=== PATIENT | female | born 1960 | race Caucasian/White ===

== ENCOUNTER 2022-04-20 09:26 | Emergency (ER) | payer BC ==
[2022-04-20 09:44] VITALS: RESP 16; TEMP 97.4
[2022-04-20 09:44] LABS: Glucose,Whole Blood 251 mg/dL (70-110)
[2022-04-20] MEDS ORDERED: ONDANSETRON 4 MG/2 ML VIAL IVP STA (10:18)
[2022-04-20] MEDS ORDERED: SODIUM CHLORIDE 0.9% 1,000 ML IV STA (10:18)
--- NOTE | 2022-04-20 10:46 | ED ---
Nausea/Vomiting/Diarrhea HPI - General Chief complaint: Nausea/Vomiting/Diarrhea Stated complaint: Vomiting, diabetic, Covid + Time Seen by Provider: 04/20/22 09:59 Source: patient, family, RN notes reviewed Mode of arrival: ambulatory Limitations: no limitations - History of Present Illness Initial comments: This is a 61-year-old female who presents to the emergency department for nausea and vomiting. She tested positive for COVID at home yesterday. 3 days ago, she began to develop fatigue, nausea, and vomiting. States that she is sleeping most of the day and is unable to keep anything down. She has also not been taking her insulin. She and her primary care physician were worried about her going into DKA, which she has been in before. She is also hoping to receive monoclonal antibody treatment. Denies any fevers, chills, sore throat, cough, dyspnea, chest pain, palpitations, abdominal pain, diarrhea, back pain, or headaches. MD complaint: nausea, vomiting Onset/Timin -: days(s) Associated Abdominal Pain: No Context: other (COVID) - Related Data Previous Rx's Medication Instructions Recorded Ondansetron Odt [Zofran Odt] 4 mg PO Q8HR PRN #20 tab 04/20/22 Allergies Allergy/AdvReac Type Severity Reaction Status Date / Time No Known Allergies Allergy Verified 04/20/22 09:43 Review of Systems ROS Statement: Those systems with pertinent positive or pertinent negative responses have been documented in the HPI. ROS Other: All systems not noted in ROS Statement are negative. Past Medical History Past Medical History: Diabetes Mellitus, Hyperlipidemia History of Any Multi-Drug Resistant Organisms: None Reported Past Surgical History: No Surgical Hx Reported Past Psychological History: No Psychological Hx Reported Smoking Status: Former smoker Past Alcohol Use History: None Reported Past Drug Use History: None Reported General Exam Limitations: no limitations General appearance: alert, in distress Head exam: Present: atraumatic, normocephalic, normal inspection Respiratory exam: Present: normal lung sounds bilaterally. Absent: respiratory distress, wheezes, rales, rhonchi, stridor Cardiovascular Exam: Present: regular rate, normal rhythm, normal heart sounds. Absent: systolic murmur, diastolic murmur, rubs, gallop, clicks GI/Abdominal exam: Present: soft, hypoactive bowel sounds. Absent: distended, tenderness Neurological exam: Present: alert, oriented X3, CN II-XII intact Psychiatric exam: Present: normal affect, normal mood Skin exam: Present: warm, dry, intact, normal color. Absent: rash Course Vital Signs 04/20/22 04/20/22 04/20/22 09:39 12:27 14:05 Temperature 97.4 F L Pulse Rate 70 54 L 60 Respiratory 16 16 16 Rate Blood Pressure 136/79 115/50 120/63 O2 Sat by Pulse 97 100 98 Oximetry Medical Decision Making - Medical Decision Making This is a 61-year-old female who presents to the emergency department for nausea and vomiting. She is also positive for COVID-19. Lab work is not consistent with DKA. Patient was rehydrated and treated with Zofran, and states that she felt remarkably better. She was also given monoclonal antibody treatment. Patient discharged home with a prescription for Zofran. Advised she remained very well-hydrated. She is also instructed to quarantine for 5 days and practice extra precautions for an additional 5 days, including always wearing a mask around others and avoiding travel. Return precautions reviewed in depth, the patient is instructed to return to the emergency department with any new, worsening, or concerning symptoms. Patient verbalized understanding. This case was discussed in detail with the attending ED physician. Presentation, findings, and treatment plan discussed in detail as well. - Lab Data Result diagrams: 04/20/22 11:35 04/20/22 11:35 Lab Results 04/20/22 04/20/22 04/20/22 Range/Units 09:42 11:35 11:35 WBC 5.8 (3.8-10.6) k/uL RBC 5.07 (3.80-5.40) m/uL Hgb 14.9 (11.4-16.0) gm/dL Hct 46.2 H (34.0-46.0) % MCV 91.1 (80.0-100.0) fL MCH 29.4 (25.0-35.0) pg MCHC 32.3 (31.0-37.0) g/dL RDW 12.8 (11.5-15.5) % Plt Count 279 (150-450) k/uL MPV 8.3 Neutrophils % 73 % Lymphocytes % 20 % Monocytes % 6 % Eosinophils % 1 % Basophils % 0 % Neutrophils # 4.2 (1.3-7.7) k/uL Lymphocytes # 1.1 (1.0-4.8) k/uL Monocytes # 0.3 (0-1.0) k/uL Eosinophils # 0.0 (0-0.7) k/uL Basophils # 0.0 (0-0.2) k/uL VBG pH (7.31-7.41) VBG pCO2 (37-51) mmHg VBG HCO3 (24-28) mmol/L Sodium 137 (137-145) mmol/L Potassium 4.7 (3.5-5.1) mmol/L Chloride 100 (98-107) mmol/L Carbon Dioxide 26 (22-30) mmol/L Anion Gap 11 mmol/L BUN 21 H (7-17) mg/dL Creatinine 0.67 (0.52-1.04) mg/dL Est GFR (CKD-EPI)AfAm >90 (>60 ml/min/1.73 sqM) Est GFR (CKD-EPI)NonAf >90 (>60 ml/min/1.73 sqM) Glucose 308 H (74-99) mg/dL POC Glucose (mg/dL) 251 H (70-110) mg/dL POC Glu Disc Pad Knockout Worker ID [facility] Calcium 9.7 (8.4-10.2) mg/dL Phosphorus 4.2 (2.5-4.5) mg/dL Magnesium 1.7 (1.6-2.3) mg/dL Total Bilirubin 0.6 (0.2-1.3) mg/dL AST 28 (14-36) U/L ALT 20 (4-34) U/L Alkaline Phosphatase 104 (38-126) U/L Total Protein 7.3 (6.3-8.2) g/dL Albumin 4.3 (3.5-5.0) g/dL Urine Color Urine Appearance (Clear) Urine pH (5.0-8.0) Ur Specific [place] (1.001-1.035) Urine Protein (Negative) Urine Glucose (UA) (Negative) Urine Ketones (Negative) Urine Blood (Negative) Urine Nitrite (Negative) Urine Bilirubin (Negative) Urine Urobilinogen (<2.0) mg/dL Ur Leukocyte Esterase (Negative) Urine WBC (0-5) /hpf Ur Squamous Epith Cells (0-4) /hpf Urine Bacteria (None) /hpf Urine Mucus (None) /hpf Acetone, Qual Positive (Negative) 04/20/22 04/20/22 Range/Units 11:35 12:20 WBC (3.8-10.6) k/uL RBC (3.80-5.40) m/uL Hgb (11.4-16.0) gm/dL Hct (34.0-46.0) % MCV (80.0-100.0) fL MCH (25.0-35.0) pg MCHC (31.0-37.0) g/dL RDW (11.5-15.5) % Plt Count (150-450) k/uL MPV Neutrophils % % Lymphocytes % % Monocytes % % Eosinophils % % Basophils % % Neutrophils # (1.3-7.7) k/uL Lymphocytes # (1.0-4.8) k/uL Monocytes # (0-1.0) k/uL Eosinophils # (0-0.7) k/uL Basophils # (0-0.2) k/uL VBG pH 7.34 (7.31-7.41) VBG pCO2 47 (37-51) mmHg VBG HCO3 26 (24-28) mmol/L Sodium (137-145) mmol/L Potassium (3.5-5.1) mmol/L Chloride (98-107) mmol/L Carbon Dioxide (22-30) mmol/L Anion Gap mmol/L BUN (7-17) mg/dL Creatinine (0.52-1.04) mg/dL Est GFR (CKD-EPI)AfAm (>60 ml/min/1.73 sqM) Est GFR (CKD-EPI)NonAf (>60 ml/min/1.73 sqM) Glucose (74-99) mg/dL POC Glucose (mg/dL) (70-110) mg/dL POC Glu Disc Pad Knockout Worker ID Calcium (8.4-10.2) mg/dL Phosphorus (2.5-4.5) mg/dL Magnesium (1.6-2.3) mg/dL Total Bilirubin (0.2-1.3) mg/dL AST (14-36) U/L ALT (4-34) U/L Alkaline Phosphatase (38-126) U/L Total Protein (6.3-8.2) g/dL Albumin (3.5-5.0) g/dL Urine Color Yellow Urine Appearance Clear (Clear) Urine pH 5.5 (5.0-8.0) Ur Specific [place] 1.037 H (1.001-1.035) Urine Protein 2+ H (Negative) Urine Glucose (UA) 4+ H (Negative) Urine Ketones 1+ H (Negative) Urine Blood Negative (Negative) Urine Nitrite Negative (Negative) Urine Bilirubin Negative (Negative) Urine Urobilinogen <2.0 (<2.0) mg/dL Ur Leukocyte Esterase Negative (Negative) Urine WBC 6 H (0-5) /hpf Ur Squamous Epith Cells 1 (0-4) /hpf Urine Bacteria Occasional H (None) /hpf Urine Mucus Occasional H (None) /hpf Acetone, Qual (Negative) Disposition Clinical Impression: COVID-19, Nausea and vomiting Disposition: HOME SELF-CARE Instructions (If sedation given, give patient instructions): Acute Nausea and Vomiting (ED), COVID-19 (Coronavirus Disease 2019) (ED), How to Recover from COVID-19 at Home (ED) Additional Instructions: Return to the emergency department with any new, worsening, or concerning symptoms. Make sure that you quarantine for 5 days from the date of the positive test and practice extra precautions for an additional 5 days, including always wearing a mask around others and avoiding travel. Take the Zofran up to every 8 hours as needed for nausea and vomiting. Prescriptions: Ondansetron Odt [Zofran Odt] 4 mg PO Q8HR PRN #20 tab PRN Reason: Nausea And Vomiting Is patient prescribed a controlled substance at d/c from ED?: No Referrals: Iain Harden MD [Primary Care Provider] - 1-2 days
[2022-04-20 12:02] LABS: Basophils % (A) 0 %; Eosinophils % (A) 1 %; HCT 46.2 % (34.0-46.0); HGB 14.9 gm/dL (11.4-16.0); Lymphocytes # (A) 1.1 k/uL (1.0-4.8); Lymphocytes % (A) 20 %; MCH 29.4 pg (25.0-35.0); MCHC 32.3 g/dL (31.0-37.0); MCV 91.1 fL (80.0-100.0); Mean Platelet Volume 8.3; Monocytes # (A) 0.3 k/uL (0-1.0); Monocytes % (A) 6 %; Neutrophils # (A) 4.2 k/uL (1.3-7.7); Neutrophils % (A) 73 %; Platelet Count 279 k/uL (150-450); RBC 5.07 m/uL (3.80-5.40); RDW 12.8 % (11.5-15.5); WBC 5.8 k/uL (3.8-10.6)
[2022-04-20] MEDS ORDERED: BEBTELOVIMAB (EUA) 175 MG/2 ML VIAL IV ONE (12:15)
[2022-04-20 12:19] LABS: ALT 20 U/L (4-34); AST 28 U/L (14-36); African American GFR (CKD) >90 (>60 ml/min/1.73 sqM); Albumin 4.3 g/dL (3.5-5.0); Alkaline Phosphatase 104 U/L (38-126); Anion Gap 11 mmol/L; Blood Urea Nitrogen 21 mg/dL (7-17); Calcium 9.7 mg/dL (8.4-10.2); Carbon Dioxide 26 mmol/L (22-30); Chloride 100 mmol/L (98-107); Glucose 308 mg/dL (74-99); Magnesium 1.7 mg/dL (1.6-2.3); Non-African American GFR(CKD) >90 (>60 ml/min/1.73 sqM); Phosphorus 4.2 mg/dL (2.5-4.5); Potassium 4.7 mmol/L (3.5-5.1); Sodium 137 mmol/L (137-145); Total Bilirubin 0.6 mg/dL (0.2-1.3); Total Protein 7.3 g/dL (6.3-8.2)
[2022-04-20 12:48] LABS: VBG PH 7.34 (7.31-7.41)
[2022-04-20] MEDS ORDERED: ONDANSETRON 4 MG ODT STARTER PACK 2 TAB BTL PO STA (13:53)
[2022-04-20 13:57] LABS: Appearance,Urine Clear (Clear); Bacteria,Urine Occasional /hpf; Bilirubin,Urine Negative (Negative); Blood,Urine Negative (Negative); Color,Urine Yellow; Glucose,Urine (UA) 4+ (Negative); Ketones,Urine 1+ (Negative); Leukocyte Esterase,Urine Negative (Negative); Mucus,Urine Occasional /hpf; Nitrite,Urine Negative (Negative); PH, Urine 5.5 (5.0-8.0); Protein,Urine 2+ (Negative); Specific Gravity,Urine 1.037 (1.001-1.035); Squamous Epithelial Cell,Urine 1 /hpf (0-4); Urobilinogen,Urine <2.0 mg/dL (<2.0); WBC,Urine 6 /hpf (0-5)
[2022-04-20 14:06] VITALS: BP 120/63; PULSE 60
== END 2022-04-20 14:06 | disposition home or self-care (01) ==
LOC: EC 09:34
DX: U07.1 COVID-19 (principal); E11.9 Type 2 diabetes mellitus without complications; E78.5 Hyperlipidemia, unspecified; Z87.891 Personal history of nicotine dependence
CPT/HCPCS: 36415; 80053; 82803; 82009; 83735; 84100; 85025; 81001; 99284; 96374; 96361 ×2; J2405; S0119; Q0222

== ENCOUNTER 2023-07-02 15:25 | Inpatient (IN) | payer BC ==
[2023-07-02 16:50] LABS: Basophils # (A) 0.1 k/uL (0-0.2); Basophils % (A) 1 %; Eosinophils # (A) 0.2 k/uL (0-0.7); Eosinophils % (A) 2 %; HCT 40.6 % (34.0-46.0); HGB 13.2 gm/dL (11.4-16.0); Lymphocytes # (A) 1.5 k/uL (1.0-4.8); Lymphocytes % (A) 21 %; MCHC 32.4 g/dL (31.0-37.0); MCV 89.4 fL (80.0-100.0); Mean Platelet Volume 8.1; Monocytes # (A) 0.3 k/uL (0-1.0); Monocytes % (A) 4 %; Neutrophils # (A) 5.1 k/uL (1.3-7.7); Neutrophils % (A) 71 %; Platelet Count 411 k/uL (150-450); RBC 4.54 m/uL (3.80-5.40); RDW 12.4 % (11.5-15.5); WBC 7.2 k/uL (3.8-10.6)
[2023-07-02 17:12] LABS: ALT 12 U/L (4-34); AST 19 U/L (14-36); African American GFR (CKD) >90 (>60 ml/min/1.73 sqM); Alkaline Phosphatase 123 U/L (38-126); Amylase 48 U/L (30-110); Anion Gap 11 mmol/L; Blood Urea Nitrogen 23 mg/dL (7-17); Carbon Dioxide 24 mmol/L (22-30); Chloride 102 mmol/L (98-107); Glucose 363 mg/dL (74-99); Lipase 40 U/L (23-300); Non-African American GFR(CKD) >90 (>60 ml/min/1.73 sqM); Sodium 137 mmol/L (137-145); Total Bilirubin 0.3 mg/dL (0.2-1.3); Total Protein 7.3 g/dL (6.3-8.2)
[2023-07-02] MEDS ORDERED: KETOROLAC 15 MG/ML 1 ML VIAL IVP STA (18:15)
[2023-07-02] MEDS ORDERED: FAMOTIDINE 20 MG/2 ML VIAL IV STA (18:16)
[2023-07-02] MEDS ORDERED: ONDANSETRON 4 MG/2 ML VIAL IVP STA (18:16)
[2023-07-02] MEDS ORDERED: SODIUM CHLORIDE 0.9% 1,000 ML IV STA (18:16)
[2023-07-02] MEDS ORDERED: MAG HYDROX/AL HYDROX/SIMETH 30 ML, HYOSCYAMINE ELIXIR 10 ML, LIDOCAINE 2% GLYDO JELLY 1... PO STA ×3 (18:16)
[2023-07-02] MEDS ORDERED: PANTOPRAZOLE 40 MG/10 ML VIAL IVP STA (18:16)
[2023-07-02] MEDS ORDERED: INSULIN REGULAR 100 UNIT/ML VIAL (IV) IV ONE (18:33)
--- NOTE | 2023-07-02 18:36 | ED ---
Abdominal Pain HPI - General Chief Complaint: Abdominal Pain Stated Complaint: abd pain Time Seen by Provider: 07/02/23 18:03 Source: patient Mode of arrival: ambulatory Limitations: no limitations - History of Present Illness Initial Comments: Patient is a 62-year-old female who presents to the emergency department for abdominal pain. Patient has had intermittent pain in her upper middle abdomen for the past 3 weeks. States it is a gnawing pain worse with food. There is radiation to the back. Patient feels nauseous no vomiting. No fever or chills. No changes in bowel habits. No urinary symptoms. Patient does admit to taking Advil for several weeks prior to abdominal pain because she pulled a muscle in her back. She denies numbness and tingling. Denies loss of bowel and bladder function. Denies history of gastritis, pancreatitis, gallbladder disease. Denies chest pain and shortness breath. Patient does have history of diabetes on insulin states she has not taken her insulin recently due to not feeling well. - Related Data Home Medications Medication Instructions Recorded Confirmed Fenofibrate Nanocrystallized 48 mg PO HS 07/02/23 07/02/23 [Fenofibrate] Insulin Aspart [NovoLOG Flexpen] See Protocol SQ AC-TID 07/02/23 07/02/23 Insulin Glargine,Hum.rec.anlog 37 unit SQ HS 07/02/23 07/02/23 [Basaglar Kwikpen U-100] Levothyroxine Sodium [Synthroid] 75 mcg PO HS 07/02/23 07/02/23 Omeprazole [PriLOSEC] 40 mg PO HS 07/02/23 07/02/23 Simvastatin [Zocor] 20 mg PO HS 07/02/23 07/02/23 Allergies Allergy/AdvReac Type Severity Reaction Status Date / Time No Known Allergies Allergy Verified 07/02/23 21:33 Review of Systems ROS Statement: Those systems with pertinent positive or pertinent negative responses have been documented in the HPI. ROS Other: All systems not noted in ROS Statement are negative. Past Medical History Past Medical History: Diabetes Mellitus, Hyperlipidemia History of Any Multi-Drug Resistant Organisms: None Reported Past Surgical History: No Surgical Hx Reported Past Psychological History: No Psychological Hx Reported Smoking Status: Former smoker Past Alcohol Use History: None Reported Past Drug Use History: None Reported General Exam Limitations: no limitations General appearance: alert Head exam: Present: atraumatic, normocephalic, normal inspection Eye exam: Present: normal appearance, PERRL, EOMI. Absent: scleral icterus, c onjunctival injection, periorbital swelling Respiratory exam: Present: normal lung sounds bilaterally. Absent: respiratory distress, wheezes, rales, rhonchi, stridor Cardiovascular Exam: Present: regular rate, normal rhythm, normal heart sounds. Absent: systolic murmur, diastolic murmur, rubs, gallop, clicks GI/Abdominal exam: Present: soft, tenderness (mild epigastric), normal bowel sounds. Absent: distended, guarding, rebound, rigid Neurological exam: Present: alert Psychiatric exam: Present: normal affect, normal mood Skin exam: Present: warm, dry, intact, normal color. Absent: rash Course Vital Signs 07/02/23 07/02/23 15:26 20:46 Temperature 98.2 F Pulse Rate 81 77 Respiratory 20 19 Rate Blood Pressure 125/52 123/99 O2 Sat by Pulse 97 99 Oximetry Medical Decision Making - Medical Decision Making EKG taken at 19:09, interpreted by myself Sinus rhythm with first-degree AV block, no ST changes Ventricular rate 62, CO interval 222, QRS duration 91, QTC 426 Was pt. sent in by a medical professional or institution (SAAD Mcintosh, TRAIN DIRECTOR, urgent care, hospital, or snf...) When possible be specific @ -[No] Did you speak to anyone other than the patient for history (EMS, parent, family, police, friend...)? What history was obtained from this source @ -[No] Did you review nursing and triage notes (agree or disagree)? Why? @ -[I reviewed and agree with nursing and triage notes] Were old charts reviewed (outside hosp., previous admission, EMS record, old EKG, old radiological studies, urgent care reports/EKG's, snf records)? Report findings @ -[No old charts were reviewed] Differential Diagnosis (chest pain, altered mental status, abdominal pain women, abdominal pain men, vaginal bleeding, weakness, fever, dyspnea, syncope, headache, dizziness, GI bleed, back pain, seizure, CVA, palpatations, mental health)? @ -Differential Abdominal Pain Women: Appendicitis, Cholecystitis, diverticulosis, ischemic bowel, pancreatitis, hepatitis, UTI, gastroenteritis, AAA, incarcerated hernia, bowel obstruction, constipation, inflammatory bowel, hepatitis, peptic ulcer disease, splenic infarction, perforated viscus, vulvitis, ovarian torsion, PID, kidney stone, placenta abruption, this is not meant to be an all-inclusive list EKG interpreted by me (3pts min.). @ -[As above] X-rays interpreted by me (1pt min.). @ -[None done] CT interpreted by me (1pt min.). @ -conglomerate mass within the mesentery with areas of suspected necrosis. Findings concerning for lymphoma versus gastrointestinal adenocarcinoma versus carcinoid. U/S interpreted by me (1pt. min.). @ -[None done] What testing was considered but not performed or refused? (CT, X-rays, U/S, labs)? Why? @ -[None] What meds were considered but not given or refused? Why? @ -[None] Did you discuss the management of the patient with other professionals (professionals i.e. , PA, TRAIN DIRECTOR, lab, RT, psych nurse, social work supervisor, guest services assistant, teacher, police or patrol park officer, case management coordinator)? Give summary @ -[No] Was smoking cessation discussed for >3mins.? @ -[No] Was critical care preformed (if so, how long)? @ -[No] Were there social determinants of health that impacted care today? How? (Homelessness, low income, unemployed, alcoholism, drug addiction, transportation, low edu. Level, literacy, decrease access to med. care, fci, rehab)? @ -[No] Was there de-escalation of care discussed even if they declined (Discuss DNR or withdrawal of care, Hospice)? DNR status @ -[No] What co-morbidities impacted this encounter? (DM, HTN, Smoking, COPD, CAD, Cancer, CVA, ARF, Chemo, Hep., AIDS, mental health diagnosis, sleep apnea, morbid obesity)? @ -[None] Was patient admitted / discharged? Hospital course, mention meds given and route, prescriptions, significant lab abnormalities, going to OR and other pertinent info. @ -62-year-old presenting with abdominal pain for 3 weeks. The abdomen is soft and nontender. Given the long duration of pain I did obtain CT which was interpreted by myself showing a mesenteric mass. Results discussed with patient. Patient initially had mild pain which significantly increased during visit. Patient given multiple pain medications with little relief. Patient will be admitted for further evaluation and management. Dr. Ortiz accepts admission, oncology consulted Undiagnosed new problem with uncertain prognosis? @ -[No] Drug Therapy requiring intensive monitoring for toxicity (Heparin, Nitro, Insulin, Cardizem)? @ -[No] Were any procedures done? @ -[No] Diagnosis/symptom? @ -[default] Acute, or Chronic, or Acute on Chronic? @ -[default] Uncomplicated (without systemic symptoms) or Complicated (systemic symptoms)? @ -[default] Side effects of treatment? @ -[No] Exacerbation, Progression, or Severe Exacerbation? @ -[No] Poses a threat to life or bodily function? How? (Chest pain, [place], [place], pneumonia, PE, COPD, DKA, ARF, appy, cholecystitis, CVA, Diverticulitis, Homicidal, Suicidal, threat to staff... and all critical care pts) @ -[No] - Lab Data Result diagrams: 07/02/23 16:40 07/02/23 16:40 Lab Results 07/02/23 07/02/23 07/02/23 Range/Units 16:40 16:40 18:52 WBC 7.2 (3.8-10.6) k/uL RBC 4.54 (3.80-5.40) m/uL Hgb 13.2 (11.4-16.0) gm/dL Hct 40.6 (34.0-46.0) % MCV 89.4 (80.0-100.0) fL MCH 29.0 (25.0-35.0) pg MCHC 32.4 (31.0-37.0) g/dL RDW 12.4 (11.5-15.5) % Plt Count 411 (150-450) k/uL MPV 8.1 Neutrophils % 71 % Lymphocytes % 21 % Monocytes % 4 % Eosinophils % 2 % Basophils % 1 % Neutrophils # 5.1 (1.3-7.7) k/uL Lymphocytes # 1.5 (1.0-4.8) k/uL Monocytes # 0.3 (0-1.0) k/uL Eosinophils # 0.2 (0-0.7) k/uL Basophils # 0.1 (0-0.2) k/uL Sodium 137 (137-145) mmol/L Potassium 5.0 (3.5-5.1) mmol/L Chloride 102 (98-107) mmol/L Carbon Dioxide 24 (22-30) mmol/L Anion Gap 11 mmol/L BUN 23 H (7-17) mg/dL Creatinine 0.70 (0.52-1.04) mg/dL Est GFR (CKD-EPI)AfAm >90 (>60 ml/min/1.73 sqM) Est GFR (CKD-EPI)NonAf >90 (>60 ml/min/1.73 sqM) Glucose 363 H (74-99) mg/dL POC Glucose (mg/dL) (70-110) mg/dL POC Glu Machine Setter ID Calcium 10.0 (8.4-10.2) mg/dL Total Bilirubin 0.3 (0.2-1.3) mg/dL AST 19 (14-36) U/L ALT 12 (4-34) U/L Alkaline Phosphatase 123 (38-126) U/L Total Protein 7.3 (6.3-8.2) g/dL Albumin 4.0 (3.5-5.0) g/dL Amylase 48 (30-110) U/L Lipase 40 (23-300) U/L Urine Color Light Yellow Urine Appearance Clear (Clear) Urine pH 5.0 (5.0-8.0) Ur Specific [place] 1.036 H (1.001-1.035) Urine Protein 1+ H (Negative) Urine Glucose (UA) 4+ H (Negative) Urine Ketones Negative (Negative) Urine Blood Negative (Negative) Urine Nitrite Negative (Negative) Urine Bilirubin Negative (Negative) Urine Urobilinogen <2.0 (<2.0) mg/dL Ur Leukocyte Esterase Negative (Negative) Urine RBC 1 (0-5) /hpf Urine WBC 2 (0-5) /hpf Ur Squamous Epith Cells 2 (0-4) /hpf Urine Bacteria Occasional H (None) /hpf Urine Mucus Rare H (None) /hpf 07/02/23 Range/Units 18:59 WBC (3.8-10.6) k/uL RBC (3.80-5.40) m/uL Hgb (11.4-16.0) gm/dL Hct (34.0-46.0) % MCV (80.0-100.0) fL MCH (25.0-35.0) pg MCHC (31.0-37.0) g/dL RDW (11.5-15.5) % Plt Count (150-450) k/uL MPV Neutrophils % % Lymphocytes % % Monocytes % % Eosinophils % % Basophils % % Neutrophils # (1.3-7.7) k/uL Lymphocytes # (1.0-4.8) k/uL Monocytes # (0-1.0) k/uL Eosinophils # (0-0.7) k/uL Basophils # (0-0.2) k/uL Sodium (137-145) mmol/L Potassium (3.5-5.1) mmol/L Chloride (98-107) mmol/L Carbon Dioxide (22-30) mmol/L Anion Gap mmol/L BUN (7-17) mg/dL Creatinine (0.52-1.04) mg/dL Est GFR (CKD-EPI)AfAm (>60 ml/min/1.73 sqM) Est GFR (CKD-EPI)NonAf (>60 ml/min/1.73 sqM) Glucose (74-99) mg/dL POC Glucose (mg/dL) 301 H (70-110) mg/dL POC Glu Machine Setter ID Niecy Estrella Calcium (8.4-10.2) mg/dL Total Bilirubin (0.2-1.3) mg/dL AST (14-36) U/L ALT (4-34) U/L Alkaline Phosphatase (38-126) U/L Total Protein (6.3-8.2) g/dL Albumin (3.5-5.0) g/dL Amylase (30-110) U/L Lipase (23-300) U/L Urine Color Urine Appearance (Clear) Urine pH (5.0-8.0) Ur Specific [place] (1.001-1.035) Urine Protein (Negative) Urine Glucose (UA) (Negative) Urine Ketones (Negative) Urine Blood (Negative) Urine Nitrite (Negative) Urine Bilirubin (Negative) Urine Urobilinogen (<2.0) mg/dL Ur Leukocyte Esterase (Negative) Urine RBC (0-5) /hpf Urine WBC (0-5) /hpf Ur Squamous Epith Cells (0-4) /hpf Urine Bacteria (None) /hpf Urine Mucus (None) /hpf Disposition Clinical Impression: Abdominal pain, Mesenteric mass Disposition: ADMITTED IP TO THIS HOSP Condition: Fair
[2023-07-02 19:00] LABS: Glucose,Whole Blood 301 mg/dL (70-110)
[2023-07-02 19:15] LABS: Appearance,Urine Clear (Clear); Bacteria,Urine Occasional /hpf; Bilirubin,Urine Negative (Negative); Blood,Urine Negative (Negative); Color,Urine Light Yellow; Glucose,Urine (UA) 4+ (Negative); Ketones,Urine Negative (Negative); Leukocyte Esterase,Urine Negative (Negative); Mucus,Urine Rare /hpf; Nitrite,Urine Negative (Negative); Protein,Urine 1+ (Negative); RBC,Urine 1 /hpf (0-5); Specific Gravity,Urine 1.036 (1.001-1.035); Squamous Epithelial Cell,Urine 2 /hpf (0-4); Urobilinogen,Urine <2.0 mg/dL (<2.0); WBC,Urine 2 /hpf (0-5)
--- NOTE | 2023-07-02 20:34 | CT ---
EXAMINATION TYPE: CT abdomen pelvis w con CT DLP: 936.6 mGycm, Automated exposure control for dose reduction was used. DATE OF EXAM: 07/02/2023 8:14 PM COMPARISON: None CLINICAL INDICATION:Female, 62 years old with history of upper abdominal pain; Upper abdominal pain r adiating towards back TECHNIQUE: Axial CT of the abdomen and pelvis. Sagittal and coronal reformats were created on a [employer] workstation. Contrast used:100 cc mL of Isovue 300 with IV Contrast, (none if empty) Oral contrast used: without Oral Contrast (none if empty) FINDINGS: LOWER CHEST: Unremarkable ABDOMEN LIVER: Unremarkable GALLBLADDER AND BILE DUCTS: Unremarkable. PANCREAS: Unremarkable. SPLEEN: Unremarkable. ADRENAL GLANDS: Unremarkable. KIDNEYS AND URETERS: No evidence of hydronephrosis or renal calculus. The ureters are unremarkable. PELVIS BLADDER: Unremarkable REPRODUCTIVE: Unremarkable. ABDOMEN & PELVIS STOMACH AND BOWEL: No evidence of bowel obstruction. Suspected gastric diverticulum near the left adr enal gland series 201 image 24. PERITONEUM/RETROPERITONEUM: No evidence of pneumoperitoneum or free fluid. Conglomerate mass within t he mesentery with areas of lower attenuation suggesting necrosis. Overall this area measures roughly 10.0 x 8.0 cm. This area impresses upon the portal vein series 201 image 37. This also closely approx imates the loops of bowel in the abdomen and particularly the duodenum as well as the pancreas uncina te process. VASCULATURE: No evidence of aortic aneurysm. MUSCULOSKELETAL: No acute osseous abnormalities LYMPH NODES: No gross evidence for lymphadenopathy. SOFT TISSUE/ABDOMINAL WALL: Fat-containing umbilical hernia. IMPRESSION: Conglomerate mass within the mesentery with areas of suspected necrosis. Findings concerning for lymp james versus gastrointestinal adenocarcinoma versus carcinoid versus other etiologies felt to be less likely like pancreatic etiology given its in close approximation to the pancreatic uncinate process. Gynecologic consultation and further workup recommended.
[2023-07-02] MEDS ORDERED: HYDROmorphone 0.5 MG/0.5 ML SYRINGE IVP STA (20:37)
[2023-07-02] MEDS ORDERED: HYDROmorphone 0.5 MG/0.5 ML SYRINGE IVP PRN (21:17)
[2023-07-02] MEDS ORDERED: ONDANSETRON 4 MG/2 ML VIAL IVP PRN (21:17)
[2023-07-02] MEDS ORDERED: NALOXONE 0.4 MG/ML 1 ML VIAL IV PRN (21:17)
[2023-07-02] MEDS: SODIUM CHLORIDE 0.9% 1,000 ML IV SCH (21:37)
[2023-07-02 22:47] LABS: Glucose,Whole Blood 223 mg/dL (70-110)
[2023-07-02] MEDS: DOCUSATE 100 MG CAP PO SCH (22:51)
[2023-07-02] MEDS: HYDROmorphone 1 MG/ML 1 ML SYRINGE IVP PRN (23:28)
[2023-07-03 05:15] LABS: Glucose,Whole Blood 257 mg/dL (70-110)
[2023-07-03] MEDS: HYDROmorphone 1 MG/ML 1 ML SYRINGE IVP PRN ×2 (05:17→23:51)
[2023-07-03] MEDS: DOCUSATE 100 MG CAP PO SCH (08:40)
[2023-07-03] MEDS: ONDANSETRON 4 MG/2 ML VIAL IVP PRN ×2 (10:40→23:51)
[2023-07-03] MEDS: SODIUM CHLORIDE 0.9% 1,000 ML IV SCH (10:44)
--- NOTE | 2023-07-03 10:51 | P.HPIM ---
History of Present Illness 8-year-old pleasant female came in with the severe epigastric abdominal pain feels nauseous but denied any vomiting patient had a CT of the abdomen which showed a mass around the epigastric area concern for lymphoma or pancreatic ca ncers GI malignancy. Oncology was consulted there is no computed tomography scan lab abnormalities. Patient is receiving Toradol and Dilaudid for pain. REVIEW OF SYSTEMS: CONSTITUTIONAL: No fever, no malaise, no fatigue. HEENT: No recent visual problems or hearing problems. Denied any sore throat. CARDIOVASCULAR: No chest pain, orthopnea, PND, no palpitations, no syncope. PULMONARY: No shortness of breath, no cough, no hemoptysis. GASTROINTESTINAL: As mentioned in HPI NEUROLOGICAL: No headaches, no weakness, no numbness. HEMATOLOGICAL: Denies any bleeding or petechiae. GENITOURINARY: Denies any burning micturition, frequency, or urgency. MUSCULOSKELETAL/RHEUMATOLOGICAL: Denies any joint pain, swelling, or any muscle pain. ENDOCRINE: Denies any polyuria or polydipsia. The rest of the 14-point review of systems is negative. PHYSICAL EXAMINATION: GENERAL: The patient is alert and oriented x3, not in any acute distress. Well developed, well nourished. HEENT: Pupils are round and equally reacting to light. EOMI. No scleral icterus. No conjunctival pallor. Normocephalic, atraumatic. No pharyngeal erythema. No thyromegaly. CARDIOVASCULAR: S1 and S2 present. No murmurs, rubs, or gallops. PULMONARY: Chest is clear to auscultation, no wheezing or crackles. ABDOMEN: Soft, nontender, nondistended, normoactive bowel sounds. No palpable organomegaly. MUSCULOSKELETAL: No joint swelling or deformity. EXTREMITIES: No cyanosis, clubbing, or pedal edema. NEUROLOGICAL: Gross neurological examination did not reveal any focal deficits. SKIN: No rashes. Assessment and plan -Abdominal masses severe abdominal pain: Continue with the above-mentioned in medications, Gen. Surgery was consulted and the impression etiology was consulted for possible biopsy. Oncology was consulted as well, CA-19-9 and CA- 125 were ordered. -Type 2 diabetes mellitus with uncontrolled elevated blood sugars: Patient was resumed on home regimen along with sliding scale insulin depending on the insulin requirements, will titrate the insulin. -Hypothyroidism -Hyperlipidemia DVT prophylaxis: Lovenox Past Medical History Past Medical History: Diabetes Mellitus, Hyperlipidemia History of Any Multi-Drug Resistant Organisms: None Reported Past Surgical History: No Surgical Hx Reported Past Psychological History: No Psychological Hx Reported Smoking Status: Former smoker Past Alcohol Use History: None Reported Past Drug Use History: None Reported Medications and Allergies Home Medications Medication Instructions Recorded Confirmed Type Fenofibrate Nanocrystallized 48 mg PO HS 07/02/23 07/02/23 History [Fenofibrate] Insulin Aspart [NovoLOG Flexpen] See Protocol SQ AC-TID 07/02/23 07/02/23 History Insulin Glargine,Hum.rec.anlog 37 unit SQ HS 07/02/23 07/02/23 History [Basaglar Kwikpen U-100] Levothyroxine Sodium [Synthroid] 75 mcg PO HS 07/02/23 07/02/23 History Omeprazole [PriLOSEC] 40 mg PO HS 07/02/23 07/02/23 History Simvastatin [Zocor] 20 mg PO HS 07/02/23 07/02/23 History Allergies Allergy/AdvReac Type Severity Reaction Status Date / Time No Known Allergies Allergy Verified 07/02/23 21:33 Physical Exam Vitals: Vital Signs Temp Pulse Resp BP Pulse Ox 07/03/23 10:45 64 17 138/57 97 07/03/23 07:50 98.2 F 62 18 134/62 95 07/03/23 06:59 18 07/03/23 05:16 69 19 170/76 07/03/23 03:07 61 17 119/63 96 07/02/23 23:27 64 17 125/44 96 07/02/23 20:46 77 19 123/99 99 07/02/23 15:26 98.2 F 81 20 125/52 97 Intake and Output 07/02/23 07/03/23 07/03/23 22:59 06:59 14:59 Other: Weight 69.853 kg Results CBC & Chem 7: 07/02/23 16:40 07/02/23 16:40 Labs: Abnormal Lab Results - Last 24 Hours (Table) 07/02/23 07/02/23 07/02/23 Range/Units 16:40 18:52 18:59 BUN 23 H (7-17) mg/dL Glucose 363 H (74-99) mg/dL POC Glucose (mg/dL) 301 H (70-110) mg/dL Ur Specific [place] 1.036 H (1.001-1.035) Urine Protein 1+ H (Negative) Urine Glucose (UA) 4+ H (Negative) Urine Bacteria Occasional H (None) /hpf Urine Mucus Rare H (None) /hpf 07/02/23 07/03/23 Range/Units 22:45 05:13 BUN (7-17) mg/dL Glucose (74-99) mg/dL POC Glucose (mg/dL) 223 H 257 H (70-110) mg/dL Ur Specific [place] (1.001-1.035) Urine Protein (Negative) Urine Glucose (UA) (Negative) Urine Bacteria (None) /hpf Urine Mucus (None) /hpf
[2023-07-03 11:49] LABS: Glucose,Whole Blood 246 mg/dL (70-110)
[2023-07-03] MEDS: INSULIN ASPART (NovoLOG) 100 UNIT/ML VIAL SQ SCH ×3 (12:21→20:51)
[2023-07-03] MEDS ORDERED: PROMETHAZINE 25 MG TAB PO PRN (13:09)
[2023-07-03] MEDS: KETOROLAC 15 MG/ML 1 ML VIAL IVP PRN ×2 (13:59→20:12)
[2023-07-03 14:03] LABS: Glucose,Whole Blood 259 mg/dL (70-110)
--- NOTE | 2023-07-03 14:51 | P.CONS ---
History of Present Illness - Reason for Consult Consult date: 07/03/23 mesenteric mass Requesting physician: Evelyn Kelley - Chief Complaint N,V, abd pain - History of Present Illness Mrs. Laguna is a 62-year-old female we've been asked to see because of findings of a 10 x 8 cm mass in the mesentery. PMH Positive for insulin- dependent diabetes mellitus, hypercholesterolemia, hypothyroidism. In May she was cleaning the house and afterwards she noted some back pain, she thought she strained her back, pain was underneath the ribs, straight through to the back, radiating around sides at times. She was using [id number] pain medications initially. The pain persisted and the Tylenol was no longer helping. Patient family reports that she's been complaining of gas pains for about the past year. This is been associated with increased episodes of indigestion as well as intermittent abdominal bloating/distention. Patient notes decreased appetite x one month. Nausea and vomiting started within the last week, mostly dry heaves, nausea is better after she dry heaves. She is tolerating small amounts of oral intake and liquids. She denies any changes in her bowel habits, no reported changing caliber of stool, hematochezia or melena, no unintentional weight loss, night sweats or unusual swelling. CT abdomen and pelvis report reviewed, no pneumoperitoneum or free fluid, conglomerate mass within the mesentery with lower attenuation suggesting necrosis, measures 10 x 8 cm, pressing on the portal vein, approximates closely to loops of the bowel in the abdomen, particularly the duodenum as well as the pancreas uncinate process, likely the cause of patient's nausea and vomiting. Patient did become extremely nauseated when she leaned forward for MD to listen to the lungs on physical exam, she experienced dry heaves, then, she reported she felt fine afterwards. She has a previous history of smoking, quit in 2010. A brother with lung cancer, a brother of with what they think might have been lymphoma, at 42 years old. Patient denies any other acute physical complaints. Review of Systems 10 point ROS is neg except as stated in HPI Past Medical History Past Medical History: Diabetes Mellitus, Hyperlipidemia History of Any Multi-Drug Resistant Organisms: None Reported Past Surgical History: No Surgical Hx Reported Past Psychological History: No Psychological Hx Reported Smoking Status: Former smoker (quit 2010) Past Alcohol Use History: None Reported Past Drug Use History: None Reported - Past Family History Brother(s) Family Medical History: Cancer (1 brother- 42 yo, think lymphoma. 1 brother- lung cancer) Medications and Allergies Home Medications Medication Instructions Recorded Confirmed Type Fenofibrate Nanocrystallized 48 mg PO HS 07/02/23 07/02/23 History [Fenofibrate] Insulin Aspart [NovoLOG Flexpen] See Protocol SQ AC-TID 07/02/23 07/02/23 History Insulin Glargine,Hum.rec.anlog 37 unit SQ HS 07/02/23 07/02/23 History [Basaglar Kwikpen U-100] Levothyroxine Sodium [Synthroid] 75 mcg PO HS 07/02/23 07/02/23 History Omeprazole [PriLOSEC] 40 mg PO HS 07/02/23 07/02/23 History Simvastatin [Zocor] 20 mg PO HS 07/02/23 07/02/23 History Allergies Allergy/AdvReac Type Severity Reaction Status Date / Time No Known Allergies Allergy Verified 07/02/23 21:33 Physical Exam Vitals: Vital Signs Temp Pulse Resp BP Pulse Ox 07/03/23 13:56 97.8 F 56 L 17 125/60 99 07/03/23 10:45 64 17 138/57 97 07/03/23 07:50 98.2 F 62 18 134/62 95 07/03/23 06:59 18 07/03/23 05:16 69 19 170/76 07/03/23 03:07 61 17 119/63 96 07/02/23 23:27 64 17 125/44 96 07/02/23 20:46 77 19 123/99 99 07/02/23 15:26 98.2 F 81 20 125/52 97 Intake and Output 07/02/23 07/03/23 07/03/23 22:59 06:59 14:59 Other: Weight 69.853 kg - Constitutional General appearance: average body habitus, cooperative, no acute distress - EENT Eyes: anicteric sclerae, edentulous ENT: hearing grossly normal, normal oropharynx - Neck Neck: no lymphadenopathy - Respiratory Respiratory: bilateral: CTA - Cardiovascular Rhythm: regular Heart sounds: normal: S1, S2 Abnormal Heart Sounds: no systolic murmur, no diastolic murmur, no rub, no S3 Gallop, no S4 Gallop, no click, no other leg Peripheral Edema: bilateral: None - Gastrointestinal General gastrointestinal: no absent bowel sounds, no decreased bowel sounds, no distended, no hepatomegaly, no hyperactive bowel sounds, normal bowel sounds, no organomegaly, no rigid, no scaphoid, soft, no splenomegaly, tenderness, no umbilical hernia, no ventral hernia Localized gastrointestinal: mass: epigastric periumbilical - Integumentary Integumentary: normal - Neurologic Neurologic: CNII-XII intact - Musculoskeletal Musculoskeletal: strength equal bilaterally - Psychiatric Psychiatric: A&O x's 3, appropriate affect, intact judgment & insight Results CBC & Chem 7: 07/02/23 16:40 07/02/23 16:40 Labs: Abnormal Lab Results - Last 24 Hours (Table) 07/02/23 07/02/23 07/02/23 Range/Units 16:40 18:52 18:59 BUN 23 H (7-17) mg/dL Glucose 363 H (74-99) mg/dL POC Glucose (mg/dL) 301 H (70-110) mg/dL Ur Specific [place] 1.036 H (1.001-1.035) Urine Protein 1+ H (Negative) Urine Glucose (UA) 4+ H (Negative) Urine Bacteria Occasional H (None) /hpf Urine Mucus Rare H (None) /hpf 07/02/23 07/03/23 07/03/23 Range/Units 22:45 05:13 11:48 BUN (7-17) mg/dL Glucose (74-99) mg/dL POC Glucose (mg/dL) 223 H 257 H 246 H (70-110) mg/dL Ur Specific [place] (1.001-1.035) Urine Protein (Negative) Urine Glucose (UA) (Negative) Urine Bacteria (None) /hpf Urine Mucus (None) /hpf 07/03/23 Range/Units 14:02 BUN (7-17) mg/dL Glucose (74-99) mg/dL POC Glucose (mg/dL) 259 H (70-110) mg/dL Ur Specific [place] (1.001-1.035) Urine Protein (Negative) Urine Glucose (UA) (Negative) Urine Bacteria (None) /hpf Urine Mucus (None) /hpf CT scan - abdomen: report reviewed CT scan - pelvis: report reviewed Assessment and Plan (1) Intractable vomiting Current Visit: Yes Status: Acute Priority: High Code(s): R11.10 - VOMITING, UNSPECIFIED SNOMED Code(s): 283853154 (2) Mesenteric mass Current Visit: Yes Status: Acute Priority: High Code(s): K63.89 - OTHER SPECIFIED DISEASES OF INTESTINE SNOMED Code(s): 968395434 Plan: Mesenteric mass -10 x [address] scan -Case discussed with Attending -Agree with Surgical evaluation -IR consulted to also review case-consider core biopsy of Abdominal mass -LDH, CEA, CA 125, CA-19-9 ordered Intractable nausea and vomiting -Likely secondary to 10 x 8 cm mass with extrinsic compression on the duodenal area and posterior aspect of the stomach. -Anti-emetics ordered more frequently. Multiple anti-emetics prescribed -Discussed with patient that she is likely going to require diet modifications such as softer foods, easily digestive all foods to reduce her discomfort and nausea. Dietary consult will be placed attests: I seen and examined patient, performed H&P, developed impression and plan of care. Discussed with dictator. Agree with documentation, dictated as a scribe.
--- NOTE | 2023-07-03 16:11 | P.GSCN ---
History of Present Illness Consult date: 07/03/23 History of present illness: CHIEF COMPLAINT: Abdominal pain HISTORY OF PRESENT ILLNESS: This is a 62-year-old female who presented to the hospital with complaints of epigastric abdominal pain for the last 3 weeks with nausea and a few episodes of vomiting. Patient denies any weight loss. She denies any night sweats. She reports having normal bowel movements. She's never had a colonoscopy. She reports her last EGD was in 2013 and was negative. Patient does have a past history of smoking. Past surgical history includes C- sections 2. Computed tomography scan abdomen and pelvis had reported conglomerate mass within the mesentery with areas of suspected necrosis. Intervention radiology on consult for biopsy of the area. Surgical service was consulted in regards to mesenteric mass. PAST MEDICAL HISTORY: Diabetes, hyperlipidemia PAST SURGICAL HISTORY: 2 MEDICATIONS: See below ALLERGIES: See below SOCIAL HISTORY: No illicit drug use. REVIEW OF SYSTEMS: CONSTITUTIONAL: Denies fever or chills. HEENT: Denies blurred vision, vision changes, or eye pain. Denies hemoptysis CARDIOVASCULAR: Denies chest pain or pressure. RESPIRATORY: No shortness of breath. GASTROINTESTINAL: See HPI for pertinent findings HEMATOLOGIC: Denies bleeding disorders. GENITOURINARY: Denies any blood in urine or increased urinary frequency. SKIN: Denies pruitis. Denies rash. PHYSICAL EXAM: VITAL SIGNS: Reviewed GENERAL: Well-developed in no acute distress. ABDOMEN: Soft. Nondistended. Nontender at this time NEUROLOGIC: Alert and oriented. Cranial nerves II through XII grossly intact. LABORATORY DATA: WBC 7.2 Hgb 13.2 platelets 411 Sodium 137 potassium is 5.0 creatinine 0.70 LFTs normal lipase 40 IMAGING: Computed tomography scan abdomen and pelvis reports conglomerate mass within the mesentery with areas of suspected necrosis. Findings concerning for lymphoma versus gastrointestinal adenocarcinoma versus carcinoid versus other etiologies felt to be less likely pancreatic etiology given its close approximation to the pancreatic uncinate process. ASSESSMENT: 1. Epigastric abdominal pain with nausea and vomiting 2. Conglomerate mass within the mesentery with areas of suspected necrosis noted on CT PLAN: -Patient scheduled for EGD tomorrow with Dr. alvarado -Keep patient nothing by mouth after midnight -Agree with interventional radiology consult for Biopsy and oncology consult -Continue supportive care Physician Strip Machine Tender note has been reviewed by physician. Signing provider agrees with the documented findings, assessment, and plan of care. Past Medical History Past Medical History: Diabetes Mellitus, Hyperlipidemia History of Any Multi-Drug Resistant Organisms: None Reported Past Surgical History: No Surgical Hx Reported Past Psychological History: No Psychological Hx Reported Smoking Status: Former smoker Past Alcohol Use History: None Reported Past Drug Use History: None Reported - Past Family History Brother(s) Family Medical History: Cancer (1 brother- 42 yo, think lymphoma. 1 brother- lung cancer) Medications and Allergies Home Medications Medication Instructions Recorded Confirmed Type Fenofibrate Nanocrystallized 48 mg PO HS 07/02/23 07/02/23 History [Fenofibrate] Insulin Aspart [NovoLOG Flexpen] See Protocol SQ AC-TID 07/02/23 07/02/23 History Insulin Glargine,Hum.rec.anlog 37 unit SQ HS 07/02/23 07/02/23 History [Basaglar Kwikpen U-100] Levothyroxine Sodium [Synthroid] 75 mcg PO HS 07/02/23 07/02/23 History Omeprazole [PriLOSEC] 40 mg PO HS 07/02/23 07/02/23 History Simvastatin [Zocor] 20 mg PO HS 07/02/23 07/02/23 History Allergies Allergy/AdvReac Type Severity Reaction Status Date / Time No Known Allergies Allergy Verified 07/02/23 21:33 Surgical - Exam Vital Signs Temp Pulse Resp BP Pulse Ox 98.2 F 81 20 125/52 97 07/02/23 15:26 07/02/23 15:26 07/02/23 15:26 07/02/23 15:26 07/02/23 15:26 Results - Labs 07/02/23 16:40 07/02/23 16:40 Abnormal Lab Results - Last 24 Hours (Table) 07/02/23 07/02/23 07/02/23 Range/Units 16:40 18:52 18:59 BUN 23 H (7-17) mg/dL Glucose 363 H (74-99) mg/dL POC Glucose (mg/dL) 301 H (70-110) mg/dL Ur Specific [place] 1.036 H (1.001-1.035) Urine Protein 1+ H (Negative) Urine Glucose (UA) 4+ H (Negative) Urine Bacteria Occasional H (None) /hpf Urine Mucus Rare H (None) /hpf 07/02/23 07/03/23 07/03/23 Range/Units 22:45 05:13 11:48 BUN (7-17) mg/dL Glucose (74-99) mg/dL POC Glucose (mg/dL) 223 H 257 H 246 H (70-110) mg/dL Ur Specific [place] (1.001-1.035) Urine Protein (Negative) Urine Glucose (UA) (Negative) Urine Bacteria (None) /hpf Urine Mucus (None) /hpf Diabetes panel 07/02/23 Range/Units 16:40 Sodium 137 (137-145) mmol/L Potassium 5.0 (3.5-5.1) mmol/L Chloride 102 (98-107) mmol/L Carbon Dioxide 24 (22-30) mmol/L BUN 23 H (7-17) mg/dL Creatinine 0.70 (0.52-1.04) mg/dL Glucose 363 H (74-99) mg/dL Calcium 10.0 (8.4-10.2) mg/dL AST 19 (14-36) U/L ALT 12 (4-34) U/L Alkaline Phosphatase 123 (38-126) U/L Total Protein 7.3 (6.3-8.2) g/dL Albumin 4.0 (3.5-5.0) g/dL Calcium panel 07/02/23 Range/Units 16:40 Calcium 10.0 (8.4-10.2) mg/dL Albumin 4.0 (3.5-5.0) g/dL Pituitary panel 07/02/23 Range/Units 16:40 Sodium 137 (137-145) mmol/L Potassium 5.0 (3.5-5.1) mmol/L Chloride 102 (98-107) mmol/L Carbon Dioxide 24 (22-30) mmol/L BUN 23 H (7-17) mg/dL Creatinine 0.70 (0.52-1.04) mg/dL Glucose 363 H (74-99) mg/dL Calcium 10.0 (8.4-10.2) mg/dL Adrenal panel 07/02/23 Range/Units 16:40 Sodium 137 (137-145) mmol/L Potassium 5.0 (3.5-5.1) mmol/L Chloride 102 (98-107) mmol/L Carbon Dioxide 24 (22-30) mmol/L BUN 23 H (7-17) mg/dL Creatinine 0.70 (0.52-1.04) mg/dL Glucose 363 H (74-99) mg/dL Calcium 10.0 (8.4-10.2) mg/dL Total Bilirubin 0.3 (0.2-1.3) mg/dL AST 19 (14-36) U/L ALT 12 (4-34) U/L Alkaline Phosphatase 123 (38-126) U/L Total Protein 7.3 (6.3-8.2) g/dL Albumin 4.0 (3.5-5.0) g/dL
[2023-07-03 17:06] LABS: Glucose,Whole Blood 340 mg/dL (70-110)
[2023-07-03 19:32] LABS: Cancer Antigen 125 25.1 U/mL (0.0-30.1)
[2023-07-03 19:34] LABS: Cancer Antigen 19-9 10.1 U/mL (0.0-34.9); Carcinoembryonic Antigen <2.0 ng/mL (0.0-4.9)
[2023-07-03 20:44] LABS: Glucose,Whole Blood 363 mg/dL (70-110)
[2023-07-03] MEDS: ATORVASTATIN 10 MG TAB PO SCH (20:50)
[2023-07-03] MEDS: LEVOTHYROXINE 75 MCG TAB PO SCH (20:51)
[2023-07-03] MEDS: INSULIN DETEMIR (LEVEMIR) 100 UNIT/ML SYR SQ SCH (20:52)
[2023-07-04] MEDS: SODIUM CHLORIDE 0.9% 1,000 ML IV SCH ×3 (00:58→21:21)
[2023-07-04] MEDS ORDERED: PROPOFOL 10 MG/ML 20 ML VIAL IV ONE (07:00)
[2023-07-04] MEDS ORDERED: LIDOCAINE 1% INJ 10MG/ML (20 ML MDV) ONE (07:00)
[2023-07-04] MEDS ORDERED: SODIUM CHLORIDE 0.9% 1,000 ML IV ONE (07:13)
--- NOTE | 2023-07-04 07:15 | P.OP ---
Date of Procedure: 07/04/23 Preoperative Diagnosis: Intra-abdominal mass Nausea Epigastric abdominal pain Postoperative Diagnosis: Antral gastritis Diaphragmatic hernia Procedure(s) Performed: EGD Anesthesia: MAC Surgeon: Edgardo Hamilton Pathology: other (Antrum) Condition: stable Disposition: PACU Description of Procedure: Patient's placed on the endoscopy table in the lateral position. She received IV sedation. The gastro-/oropharynx passed in the esophagus into the stomach. Scope withdrawn through the pylorus. First and second portion of the duodenum appeared normal. Scope was then brought back the antrum was minimal inflamed. Biopsies performed. Scope was retroflexed the remainder the stomach appeared normal. In the fundus the stomach there was evidence of a small diaphragmatic hernia. This was located lateral and anterior to the hiatus. The GE junction was at 40 cm. the distal esophagus appeared normal. Proximal esophagusAppeared Normal. Scope withdrawn for patient.
[2023-07-04 07:42] LABS: Glucose,Whole Blood 195 mg/dL (70-110)
[2023-07-04] MEDS: INSULIN ASPART (NovoLOG) 100 UNIT/ML VIAL SQ SCH ×4 (08:28→21:07)
[2023-07-04] MEDS: DOCUSATE 100 MG CAP PO SCH (08:28)
[2023-07-04] MEDS: ONDANSETRON 4 MG/2 ML VIAL IVP PRN ×2 (08:32→21:01)
[2023-07-04] MEDS: KETOROLAC 15 MG/ML 1 ML VIAL IVP PRN ×2 (08:32→17:39)
[2023-07-04] MEDS ORDERED: PANTOPRAZOLE 40 MG/10 ML VIAL IVP SCH (09:00)
[2023-07-04 11:50] LABS: Glucose,Whole Blood 128 mg/dL (70-110)
[2023-07-04] MEDS ORDERED: HYDROcodone/APAP 7.5-325MG 1 EACH TAB PO PRN (12:22)
[2023-07-04] MEDS ORDERED: polyethylene glycoL 3350 17 GM POWD.PACK PO PRN (12:22)
--- NOTE | 2023-07-04 13:08 | P.PN ---
Subjective Progress Note Date: 07/04/23 CHIEF COMPLAINT: Mesenteric mass HISTORY OF PRESENT ILLNESS: Patient status post EGD revealing antral gastritis and diaphragmatic hernia. Biopsies obtained. Patient was a mass within the mesentery noted on computed tomography scan. She continues to have epigastric abdominal discomfort. IR service is not able to perform biopsy. Oncology service requesting surgical service to perform biopsy. PHYSICAL EXAM: VITAL SIGNS: Reviewed. GENERAL: Well-developed in no acute distress. ABDOMEN: Soft. Nondistended. Mild epigastric discomfort with palpation NEUROLOGIC: Alert and oriented. Cranial nerves II through XII grossly intact. ASSESSMENT: 1. Epigastric abdominal pain with nausea and vomiting 2. Conglomerate mass within the mesentery with areas of suspected necrosis noted on CT PLAN: -Patient scheduled for laparoscopic biopsy of mass within the mesentery tomorrow with Dr. alvarado -Keep patient nothing by mouth after midnight -Continue supportive care Physician Stunt Driver note has been reviewed by physician. Signing provider agrees with the documented findings, assessment, and plan of care. Objective - Vital Signs Vital signs: Vital Signs Temp 97.4 F L 07/04/23 07:00 Pulse 57 L 07/04/23 08:12 Resp 16 07/04/23 07:00 BP 104/50 07/04/23 08:12 Pulse Ox 94 L 07/04/23 08:12 FiO2 Intake & Output 07/03/23 07/04/23 07/04/23 18:59 06:59 18:59 Intake Total 222 100 Balance 222 100 Weight 69.853 kg Intake: IV 100 Oral 222 Other: # Voids 2 - Labs CBC & Chem 7: 07/02/23 16:40 07/02/23 16:40 Labs: Abnormal Lab Results - Last 24 Hours (Table) 07/03/23 07/03/23 07/03/23 Range/Units 10:56 11:48 14:02 POC Glucose (mg/dL) 246 H 259 H (70-110) mg/dL Lactate Dehydrogenase 369 H (120-246) U/L 07/03/23 07/03/23 07/04/23 Range/Units 17:04 20:42 07:41 POC Glucose (mg/dL) 340 H 363 H 195 H (70-110) mg/dL Lactate Dehydrogenase (120-246) U/L
--- NOTE | 2023-07-04 13:21 | P.PN ---
Subjective 8-year-old pleasant female came in with the severe epigastric abdominal pain feels nauseous but denied any vomiting patient had a CT of the abdomen which showed a mass around the epigastric area concern for lymphoma or pancreatic cancers GI malignancy. Oncology was consulted there is no computed tomography scan lab abnormalities. Patient is receiving Toradol and Dilaudid for pain. 07/04/2023 Patient is still having abdominal pain and nausea patient underwent upper GI endoscopy showed antral gastritis biopsies were up and patient will undergo percutaneous biopsy of the lesion that was found in the abdomen. Patient will be started on Frit[place], MiraLAX as needed for constipation Dilaudid will be continued. Constitutional: Denied any fatigue denied any fever. Cardio vascular: denied any chest pain, palpitations Gastrointestinal as mentioned above Neurologic denied any new focal deficits All inpatient medications were reviewed and appropriate changes in these medications as dictated in the interval history and assessment and plan. PHYSICAL EXAMINATION: GENERAL: The patient is alert and oriented x3, not in any acute distress. Well developed, well nourished. HEENT: Pupils are round and equally reacting to light. EOMI. No scleral icterus. No conjunctival pallor. Normocephalic, atraumatic. No pharyngeal erythema. No thyromegaly. CARDIOVASCULAR: S1 and S2 present. No murmurs, rubs, or gallops. PULMONARY: Chest is clear to auscultation, no wheezing or crackles. ABDOMEN: Soft, nontender, nondistended, normoactive bowel sounds. No palpable organomegaly. MUSCULOSKELETAL: No joint swelling or deformity. EXTREMITIES: No cyanosis, clubbing, or pedal edema. NEUROLOGICAL: Gross neurological examination did not reveal any focal deficits. SKIN: No rashes. Assessment and plan -Abdominal masses severe abdominal pain: Continue with the above-mentioned in medications, Gen. Surgery was consulted and the impression etiology was consulted for possible biopsy. Oncology evaluated the patient, CA-19-9 and CA- 125 are within normal limits -Type 2 diabetes mellitus better controlled continue with the same regimen -Hypothyroidism -Hyperlipidemia DVT prophylaxis: Lovenox Objective - Vital Signs Vital signs: Vital Signs Temp 97.4 F L 07/04/23 07:00 Pulse 57 L 07/04/23 08:12 Resp 16 07/04/23 07:00 BP 104/50 07/04/23 08:12 Pulse Ox 94 L 07/04/23 08:12 FiO2 Intake & Output 07/03/23 07/04/23 07/04/23 18:59 06:59 18:59 Intake Total 222 100 Balance 222 100 Weight 69.853 kg Intake: IV 100 Oral 222 Other: Voiding Method Toilet # Voids 2 - Labs CBC & Chem 7: 07/02/23 16:40 07/02/23 16:40 Labs: Abnormal Lab Results - Last 24 Hours (Table) 07/03/23 07/03/23 07/03/23 Range/Units 10:56 14:02 17:04 POC Glucose (mg/dL) 259 H 340 H (70-110) mg/dL Lactate Dehydrogenase 369 H (120-246) U/L 07/03/23 07/04/23 07/04/23 Range/Units 20:42 07:41 11:48 POC Glucose (mg/dL) 363 H 195 H 128 H (70-110) mg/dL Lactate Dehydrogenase (120-246) U/L
--- NOTE | 2023-07-04 17:36 | P.PN ---
Subjective Progress Note Date: 07/04/23 Principal diagnosis: Abd pain, mesenteric mass, intractable N,V, In f/u today pt is using pain meds and antiemetics for control of persistent symptoms. She is tolerating liquids, small amounts at a time. She is s/p EGD, stomach biopsies pending. Objective - Vital Signs Vital signs: Vital Signs Temp 99.1 F 07/04/23 12:37 Pulse 64 07/04/23 12:37 Resp 16 07/04/23 12:37 BP 105/58 07/04/23 12:37 Pulse Ox 96 07/04/23 12:37 FiO2 Intake & Output 07/03/23 07/04/23 07/04/23 18:59 06:59 18:59 Intake Total 222 100 Balance 222 100 Weight 69.853 kg Intake: IV 100 Oral 222 Other: Voiding Method Toilet # Voids 2 - Constitutional General appearance: Present: average body habitus, cooperative, no acute distress - EENT Eyes: Present: anicteric sclerae, EOMI ENT: Present: hearing grossly normal - Respiratory Details: resp even and unlabored at rest - Cardiovascular Details: skin warm and dry to touch - Peripheral edema leg Peripheral Edema: bilateral: None - Gastrointestinal General gastrointestinal: Present: soft, tenderness Localized gastrointestinal: tender: epigastric periumbilical - Integumentary Integumentary: Present: normal - Neurologic Neurologic: Present: CNII-XII intact - Musculoskeletal Musculoskeletal: Present: strength equal bilaterally - Psychiatric Psychiatric: Present: A&O x's 3, appropriate affect, intact judgment & insight - Labs CBC & Chem 7: 07/02/23 16:40 07/02/23 16:40 Labs: Abnormal Lab Results - Last 24 Hours (Table) 07/03/23 07/03/23 07/04/23 Range/Units 10:56 20:42 07:41 POC Glucose (mg/dL) 363 H 195 H (70-110) mg/dL Lactate Dehydrogenase 369 H (120-246) U/L 07/04/23 Range/Units 11:48 POC Glucose (mg/dL) 128 H (70-110) mg/dL Lactate Dehydrogenase (120-246) U/L Assessment and Plan (1) Intractable vomiting Current Visit: Yes Status: Acute Priority: High Code(s): R11.10 - VOMITING, UNSPECIFIED SNOMED Code(s): 100056245 (2) Mesenteric mass Current Visit: Yes Status: Acute Priority: High Code(s): K63.89 - OTHER SPECIFIED DISEASES OF INTESTINE SNOMED Code(s): 685670776 Plan: Mesenteric mass -10 x [address] scan -Case discussed with IR RN-mass cannot be reached via needle -Case discussed with Surgery-they will open biopsy tomorrow -LDH elevated. CEA, CA 125, CA-19-9 all within normal limits Intractable nausea and vomiting -Likely secondary to 10 x 8 cm mass with extrinsic compression on the duodenal area and posterior aspect of the stomach. -Anti-emetics ordered more frequently. Multiple anti-emetics prescribed. Pain meds ordered. Will need to adjust so pt can have some relief when she is discharged -Pt agrees with diet modification for comfort. She is tolerating glucerna clear drinks. Did place Dietitian order today All pt and her husbands questions were answered to their satisfaction
[2023-07-04 17:51] LABS: Glucose,Whole Blood 131 mg/dL (70-110)
[2023-07-04 20:16] LABS: Glucose,Whole Blood 158 mg/dL (70-110)
[2023-07-04] MEDS: HYDROmorphone 1 MG/ML 1 ML SYRINGE IVP PRN (21:04)
[2023-07-04] MEDS: ATORVASTATIN 10 MG TAB PO SCH (21:07)
[2023-07-04] MEDS: PANTOPRAZOLE 40 MG/10 ML VIAL IVP SCH (21:22)
[2023-07-04] MEDS: LEVOTHYROXINE 75 MCG TAB PO SCH (21:22)
[2023-07-04] MEDS: INSULIN DETEMIR (LEVEMIR) 100 UNIT/ML SYR SQ SCH (21:22)
[2023-07-05] MEDS: KETOROLAC 15 MG/ML 1 ML VIAL IVP PRN ×2 (03:15→09:13)
[2023-07-05] MEDS: ONDANSETRON 4 MG/2 ML VIAL IVP PRN ×2 (06:07→06:21)
[2023-07-05 07:04] LABS: HCT 33.6 % (34.0-46.0); MCH 29.1 pg (25.0-35.0); MCHC 32.7 g/dL (31.0-37.0); MCV 88.9 fL (80.0-100.0); Mean Platelet Volume 7.9; Platelet Count 341 k/uL (150-450); RBC 3.78 m/uL (3.80-5.40); RDW 12.6 % (11.5-15.5); WBC 8.6 k/uL (3.8-10.6)
[2023-07-05 07:14] LABS: African American GFR (CKD) >90 (>60 ml/min/1.73 sqM); Anion Gap 7 mmol/L; Blood Urea Nitrogen 13 mg/dL (7-17); Calcium 8.6 mg/dL (8.4-10.2); Carbon Dioxide 23 mmol/L (22-30); Chloride 108 mmol/L (98-107); Glucose 79 mg/dL (74-99); Non-African American GFR(CKD) >90 (>60 ml/min/1.73 sqM); Potassium 3.7 mmol/L (3.5-5.1); Sodium 138 mmol/L (137-145)
[2023-07-05 07:20] LABS: Glucose,Whole Blood 72 mg/dL (70-110)
[2023-07-05] MEDS: INSULIN ASPART (NovoLOG) 100 UNIT/ML VIAL SQ SCH ×4 (07:32→21:29)
[2023-07-05 07:48] LABS: Glucose,Whole Blood 72 mg/dL (70-110)
[2023-07-05] MEDS: PANTOPRAZOLE 40 MG/10 ML VIAL IVP SCH ×2 (08:18→21:29)
[2023-07-05] MEDS: DOCUSATE 100 MG CAP PO SCH (08:19)
[2023-07-05] MEDS: SODIUM CHLORIDE 0.9% 1,000 ML IV SCH ×2 (08:21→21:36)
[2023-07-05] MEDS ORDERED: ONDANSETRON ODT 8 MG TAB.RAPDIS PO PRN (08:57)
[2023-07-05] MEDS ORDERED: HYDROcodone/APAP 7.5-325MG 1 EACH TAB PO PRN (08:59)
[2023-07-05] MEDS: SENNOSIDES-DOCUSATE SODIUM 1 EACH TAB PO SCH ×2 (09:05→21:29)
[2023-07-05] MEDS: PROCHLORPERAZINE INJ 10 MG/2 ML VIAL IVP PRN (09:13)
--- NOTE | 2023-07-05 10:45 | P.PN ---
Subjective Progress Note Date: 07/05/23 CHIEF COMPLAINT: Mesenteric mass HISTORY OF PRESENT ILLNESS: Patient complains of epigastric abdominal pain and nausea this morning. No improvement with Zofran. Patient status post EGD revealing antral gastritis and diaphragmatic hernia. Biopsies obtained. Patient has a mass within the mesentery noted on computed tomography scan. Afebrile. WBC 8.6 hgb 11 platelets 341 sodium 138 creatinine 0.53 PHYSICAL EXAM: VITAL SIGNS: Reviewed. GENERAL: Well-developed in no acute distress. ABDOMEN: Soft. Nondistended. Mild epigastric discomfort with palpation NEUROLOGIC: Alert and oriented. Cranial nerves II through XII grossly intact. ASSESSMENT: 1. Epigastric abdominal pain with nausea and vomiting 2. Conglomerate mass within the mesentery with areas of suspected necrosis noted on CT PLAN: -Patient scheduled for laparoscopic biopsy of mass within the mesentery today with Dr. alvarado -keep patient NPO -Continue pain management -Compazine added for nausea Physician Industrial Technology Education Teacher note has been reviewed by physician. Signing provider agrees with the documented findings, assessment, and plan of care. Objective - Vital Signs Vital signs: Vital Signs Temp 99.0 F 07/05/23 06:30 Pulse 69 07/05/23 06:30 Resp 12 07/05/23 06:30 BP 130/64 07/05/23 06:30 Pulse Ox 98 07/05/23 06:30 FiO2 Intake & Output 07/04/23 07/05/23 07/05/23 18:59 06:59 18:59 Intake Total 100 50 Balance 100 50 Intake: IV 100 Oral 50 Other: Voiding Method Toilet Toilet # Voids 1 - Labs CBC & Chem 7: 07/05/23 06:00 07/05/23 06:00 Labs: Abnormal Lab Results - Last 24 Hours (Table) 07/04/23 07/04/23 07/04/23 Range/Units 11:48 17:09 20:13 RBC (3.80-5.40) m/uL Hgb (11.4-16.0) gm/dL Hct (34.0-46.0) % Chloride (98-107) mmol/L POC Glucose (mg/dL) 128 H 131 H 158 H (70-110) mg/dL 07/05/23 07/05/23 Range/Units 06:00 06:00 RBC 3.78 L (3.80-5.40) m/uL Hgb 11.0 L (11.4-16.0) gm/dL Hct 33.6 L (34.0-46.0) % Chloride 108 H (98-107) mmol/L POC Glucose (mg/dL) (70-110) mg/dL
[2023-07-05] MEDS ORDERED: Potassium Replacement Protocol 1 EACH MISC MISCELLANE PRN (10:50)
[2023-07-05] MEDS: POTASSIUM CHLORIDE 10 MEQ in WATER FOR INJECTION 1 100ML.BAG IVPB SCH ×2 (11:07→12:54)
[2023-07-05] MEDS ORDERED: DEXTROSE 50% SYRINGE 50 ML IVP ONE (11:52)
[2023-07-05 11:53] LABS: Glucose,Whole Blood 49 mg/dL (70-110)
[2023-07-05 12:28] LABS: Glucose,Whole Blood 135 mg/dL (70-110)
[2023-07-05 14:45] VITALS: BMI 24.8
[2023-07-05] MEDS ORDERED: MIDAZOLAM 2 MG/2 ML VIAL IVP ONE (14:58)
[2023-07-05] MEDS ORDERED: IV FLUID CONTINUATION 700 ML IV ONE (15:00)
[2023-07-05 15:09] LABS: Glucose,Whole Blood 104 mg/dL (70-110)
[2023-07-05] MEDS ORDERED: ONDANSETRON 4 MG/2 ML VIAL IVP ONE (15:09)
[2023-07-05] MEDS ORDERED: DEXAMETHASONE SOD PHOSPHATE 4 MG/ML 1 ML VIAL IV ONE (15:10)
[2023-07-05] MEDS ORDERED: ePHEDrine 50 MG/ML 1 ML VIAL ONE (15:10)
[2023-07-05] MEDS ORDERED: ceFAZolin 1,000 MG VIAL ONE (15:10)
[2023-07-05] MEDS ORDERED: SODIUM CHLORIDE 0.9% 100 ML BAG ONE (15:10)
[2023-07-05] MEDS ORDERED: KETOROLAC 15 MG/ML 1 ML VIAL ONE (15:10)
[2023-07-05] MEDS ORDERED: PROPOFOL 10 MG/ML 20 ML VIAL IV ONE (15:10)
[2023-07-05] MEDS ORDERED: LIDOCAINE 1% INJ 10MG/ML (20 ML MDV) ONE (15:10)
[2023-07-05] MEDS ORDERED: ROCURONIUM 10 MG/ML (5 ML VIAL) IV ONE (15:10)
[2023-07-05] MEDS ORDERED: fentaNYL (PF) 50 MCG/ML 2 ML AMP ONE (15:10)
[2023-07-05] MEDS ORDERED: SUCCINYLCHOLINE CHLORIDE 200 MG/10 ML VIAL IV ONE (15:10)
[2023-07-05] MEDS ORDERED: SODIUM CHLORIDE 0.9% 50 ML with ceFAZolin 2,000 MG IV ONE ×2 (15:15)
[2023-07-05] MEDS ORDERED: BUPIVACAINE (PF) 0.25% 30 ML VIAL SQ ONE ×2 (15:44)
--- NOTE | 2023-07-05 16:06 | P.OP ---
Date of Procedure: 07/05/23 Preoperative Diagnosis: Peritoneal mass Postoperative Diagnosis: Defer to pathology Procedure(s) Performed: Diagnostic laparoscopy Biopsy of retroperitoneal mass Fluid collection for cytology Anesthesia: NOEMY Surgeon: Edgardo Hamilton Estimated Blood Loss (ml): 5 Pathology: other (Intraperitoneal fluid, peritoneal mass) Condition: stable Disposition: PACU Description of Procedure: The patient's placed on the operating table in the supine position. She incision. Her abdomen was prepped and draped usual sterile fashion. The patient's abdomen was palpated and in the epigastric area there was a palpable mass felt through the abdominal wall. Next using a 5 ohmmeter optical trocar in the left upper quadrant the perineal cavity was entered. The abdomen was then insufflated with CO2.. After adequate insufflation the laparoscope was placed in prone cavity. And then another 5 mm trocar was placed in the left lateral position, infraumbilical position. The patient's placed in reverse Trendelenburg. There was bilious colored ascites. This was aspirated and sent for cytology. The omentum was reflected cephalad and a mass could be seen arising from the retroperitoneal. The mass appeared to have an appearance approximate 10-15 cm in diameter. The mass was photographed. And then several biopsies mass was performed with the toothed forcep. He was easily achieved with cautery. There is no bleeding seen. The specimens were sent to pathology. The trochars withdrawn. The skin was closed interrupted 3-0 Monocryl suture. Dermabond dressings was applied. Patient top she will was sent to recovery room in stable condition.
[2023-07-05 16:16] LABS: Glucose,Whole Blood 105 mg/dL (70-110)
--- NOTE | 2023-07-05 16:21 | P.PN ---
Subjective Progress Note Date: 07/05/23 Principal diagnosis: Abd pain, mesenteric mass, intractable N,V, In f/u today pt is very tired, she has kept no food down since last night, abd pain intermittent, severe at time, no specific aggravating factor identified. No BM. Feeling weak. Objective - Vital Signs Vital signs: Vital Signs Temp 98.5 F 07/05/23 11:12 Pulse 66 07/05/23 11:12 Resp 14 07/05/23 11:12 BP 116/69 07/05/23 11:12 Pulse Ox 96 07/05/23 11:12 FiO2 Intake & Output 07/04/23 07/05/23 07/05/23 18:59 06:59 18:59 Intake Total 100 50 Balance 100 50 Intake: IV 100 Oral 50 Other: Voiding Method Toilet Toilet Toilet # Voids 1 - Constitutional General appearance: Present: average body habitus, cooperative, mild distress - EENT Eyes: Present: anicteric sclerae, EOMI ENT: Present: hearing grossly normal - Respiratory Details: resp even and unlabored at rest - Peripheral edema leg Peripheral Edema: bilateral: None - Gastrointestinal General gastrointestinal: Present: tenderness - Integumentary Integumentary: Present: normal - Neurologic Neurologic: Present: CNII-XII intact - Musculoskeletal Musculoskeletal: Present: generalized weakness, strength equal bilaterally - Psychiatric Psychiatric: Present: A&O x's 3, appropriate affect, intact judgment & insight - Labs CBC & Chem 7: 07/05/23 06:00 07/05/23 06:00 Labs: Abnormal Lab Results - Last 24 Hours (Table) 07/04/23 07/04/23 07/04/23 Range/Units 11:48 17:09 20:13 RBC (3.80-5.40) m/uL Hgb (11.4-16.0) gm/dL Hct (34.0-46.0) % Chloride (98-107) mmol/L POC Glucose (mg/dL) 128 H 131 H 158 H (70-110) mg/dL 07/05/23 07/05/23 Range/Units 06:00 06:00 RBC 3.78 L (3.80-5.40) m/uL Hgb 11.0 L (11.4-16.0) gm/dL Hct 33.6 L (34.0-46.0) % Chloride 108 H (98-107) mmol/L POC Glucose (mg/dL) (70-110) mg/dL Assessment and Plan (1) Intractable vomiting Current Visit: Yes Status: Acute Priority: High Code(s): R11.10 - VOMIT ING, UNSPECIFIED SNOMED Code(s): 221816473 (2) Mesenteric mass Current Visit: Yes Status: Acute Priority: High Code(s): K63.89 - OTHER SPECIFIED DISEASES OF INTESTINE SNOMED Code(s): 324340945 Plan: Mesenteric mass -10 x [address] scan -Surgery has performed laproscopic biopsy. Some ascites was also collected and sent for evaluation. Pending path -LDH elevated. CEA, CA 125, CA-19-9 all within normal limits Intractable nausea and vomiting -Secondary to 10 x 8 cm mass with extrinsic compression on the duodenal area and posterior aspect of the stomach. -Anti-emetics ordered more frequently. Multiple anti-emetics prescribed. Pain meds ordered. Did make some medication adjustments to oral in anticipation of pt going home in the next day or so. Will see if still effective in managing symptoms. Pt expressed concerns the patient is not eating/unable to eat. He is concerned for her having out of control pain or nausea. Will see how the patient does over the next several days, see if path comes back quickly. Will discuss the case with Attending in the next day or so to see what their plans are
--- NOTE | 2023-07-05 16:35 | P.PN ---
Subjective Progress Note Date: 07/05/23 62-year-old pleasant female came in with the severe epigastric abdominal pain feels nauseous but denied any vomiting patient had a CT of the abdomen which showed a mass around the epigastric area concern for lymphoma or pancreatic cancers GI malignancy. Oncology was consulted there is no computed tomography scan lab abnormalities. Patient is receiving Toradol and Dilaudid for pain. 07/04/2023 Patient is still having abdominal pain and nausea patient underwent upper GI endoscopy showed antral gastritis biopsies were up and patient will undergo percutaneous biopsy of the lesion that was found in the abdomen. Patient will be started on [place], MiraLAX as needed for constipation Dilaudid will be con tinued. 07/05/2023 Patient is evaluated today resting in bed. Currently NPO and pending laproscopic biopsy of the mesenteric mass. Continues on antiemetics. Reports abdominal pain as generalized dull and achy states the pain medication has been helping. Review of systems. Constitutional: reports fatigue, denied any fever. Cardio vascular: denied any chest pain, palpitations Gastrointestinal reports nausea, abdominal pain, poor appetite. no BM. Neurologic denied any new focal deficits All inpatient medications were reviewed and appropriate changes in these medications as dictated in the interval history and assessment and plan. PHYSICAL EXAMINATION: GENERAL: The patient is alert and oriented x3, not in any acute distress. Well developed, well nourished. HEENT: Pupils are round and equally reacting to light. EOMI. No scleral icterus. No conjunctival pallor. Normocephalic, atraumatic. No pharyngeal erythema. No thyromegaly. CARDIOVASCULAR: S1 and S2 present. No murmurs, rubs, or gallops. PULMONARY: Chest is clear to auscultation, no wheezing or crackles. ABDOMEN: Soft, nontender, nondistended, normoactive bowel sounds. No palpable organomegaly. MUSCULOSKELETAL: No joint swelling or deformity. EXTREMITIES: No cyanosis, clubbing, or pedal edema. NEUROLOGICAL: Gross neurological examination did not reveal any focal deficits. SKIN: No rashes. Assessment and plan -Abdominal masses possible necrosis and severe abdominal pain: pending laproscopic biopsy today of the mesenteric mass; Oncology evaluated the patient, CA-19-9 and CA-125 are within normal limits -Intractible nausea and vomiting continue with antiemetics -Type 2 diabetes mellitus better controlled continue with the same regimen -Hypothyroidism -Hyperlipidemia DVT prophylaxis: Kendranox GI prophylaxis: Protonix The impression and plan of care has been dictated by Rosemary Ovalles Nurse Practitioner as directed. Dr. Fernando MD I have performed a history and physical examination and medical decision making of this patient, discussed the same with the dictator, and agree with the dictators assessment and plan as written, documented as a scribe. Based on total visit time, I have performed more than 50% of this visit. Objective - Vital Signs Vital signs: Vital Signs Temp 97.4 F L 07/05/23 16:09 Pulse 75 07/05/23 16:09 Resp 16 07/05/23 16:09 BP 146/65 07/05/23 16:09 Pulse Ox 99 07/05/23 16:09 FiO2 Intake & Output 07/04/23 07/05/23 07/05/23 18:59 06:59 18:59 Intake Total 100 50 400 Output Total 20 Balance 100 50 380 Weight 69.853 kg Intake: IV 100 400 Oral 50 Output: Estimated Blood Loss 20 Other: Voiding Method Toilet Toilet Toilet # Voids 1 - Labs CBC & Chem 7: 07/05/23 06:00 07/05/23 06:00 Labs: Abnormal Lab Results - Last 24 Hours (Table) 07/04/23 07/04/23 07/05/23 Range/Units 17:09 20:13 06:00 RBC 3.78 L (3.80-5.40) m/uL Hgb 11.0 L (11.4-16.0) gm/dL Hct 33.6 L (34.0-46.0) % Chloride (98-107) mmol/L POC Glucose (mg/dL) 131 H 158 H (70-110) mg/dL 07/05/23 07/05/23 07/05/23 Range/Units 06:00 11:46 12:26 RBC (3.80-5.40) m/uL Hgb (11.4-16.0) gm/dL Hct (34.0-46.0) % Chloride 108 H (98-107) mmol/L POC Glucose (mg/dL) 49 L 135 H (70-110) mg/dL Assessment and Plan Time with Patient: Less than 30
[2023-07-05 17:49] LABS: Glucose,Whole Blood 111 mg/dL (70-110)
[2023-07-05 20:44] LABS: Glucose,Whole Blood 299 mg/dL (70-110)
[2023-07-05] MEDS: INSULIN DETEMIR (LEVEMIR) 100 UNIT/ML SYR SQ SCH (21:28)
[2023-07-05] MEDS: LEVOTHYROXINE 75 MCG TAB PO SCH (21:29)
[2023-07-05] MEDS: ATORVASTATIN 10 MG TAB PO SCH (21:29)
[2023-07-06 07:29] LABS: Glucose,Whole Blood 179 mg/dL (70-110)
[2023-07-06] MEDS: INSULIN ASPART (NovoLOG) 100 UNIT/ML VIAL SQ SCH ×4 (08:19→21:00)
[2023-07-06] MEDS: PANTOPRAZOLE 40 MG/10 ML VIAL IVP SCH ×2 (08:19→21:06)
[2023-07-06] MEDS: SENNOSIDES-DOCUSATE SODIUM 1 EACH TAB PO SCH ×3 (08:19→21:07)
[2023-07-06] MEDS: KETOROLAC 15 MG/ML 1 ML VIAL IVP SCH ×2 (10:31→17:46)
[2023-07-06] MEDS: ONDANSETRON 4 MG/2 ML VIAL IVP PRN (10:31)
[2023-07-06 11:57] LABS: Glucose,Whole Blood 126 mg/dL (70-110)
--- NOTE | 2023-07-06 12:21 | P.PN ---
Subjective Progress Note Date: 07/06/23 CHIEF COMPLAINT: Mesenteric mass HISTORY OF PRESENT ILLNESS: Patient is postop day #1 status post diagnostic laparoscopy, biopsy of retroperitoneal mass and fluid collection for cytology. Patient complains of epigastric abdominal pain. She reports that the Toradol was helping. It apparently has fallen off the MAR. Patient also reports nausea and describes the pain as a burning sensation. Afebrile. PHYSICAL EXAM: VITAL SIGNS: Reviewed. GENERAL: Well-developed in no acute distress. ABDOMEN: Soft. Nondistended. Mild epigastric discomfort with palpation. Incisions clean dry and intact NEUROLOGIC: Alert and oriented. Cranial nerves II through XII grossly intact. ASSESSMENT: 1. Retroperitoneal mass status post biopsy 2. Epigastric abdominal pain with nausea and vomiting 3. Conglomerate mass within the mesentery with areas of suspected necrosis noted on CT 4. Status post EGD revealing antral gastritis and diaphragmatic hernia PLAN: -Restart Toradol for pain -Continue regular diet -Continue pain management -Continue antiemetics -Follow up on Pathology and cytology results Physician Belt Changer note has been reviewed by physician. Signing provider agrees with the documented findings, assessment, and plan of care. Objective - Vital Signs Vital signs: Vital Signs Temp 98.3 F 07/06/23 07:29 Pulse 65 07/06/23 07:29 Resp 18 07/06/23 07:29 BP 131/72 07/06/23 07:29 Pulse Ox 98 07/06/23 07:29 FiO2 Intake & Output 07/05/23 07/06/23 07/06/23 18:59 06:59 18:59 Intake Total 1400 1400 Output Total 20 Balance 1380 1400 Weight 69.853 kg Intake: IV 400 Intake, IV Titration 1000 900 Amount Potassium Chloride 10 meq 100 In Water For Injection 1 100ml.bag @ 100 mls/hr IVPB Q1H FARIDEH Rx#: [id number] Sodium Chloride 0.9% 1, 900 900 000 ml @ 75 mls/hr IV . [id number] FARIDEH Rx#:[id number] Oral 500 Output: Estimated Blood Loss 20 Other: Voiding Method Toilet Toilet # Voids 3 - Labs CBC & Chem 7: 07/05/23 06:00 07/05/23 06:00 Labs: Abnormal Lab Results - Last 24 Hours (Table) 07/05/23 07/05/23 07/05/23 Range/Units 11:46 12:26 17:46 POC Glucose (mg/dL) 49 L 135 H 111 H (70-110) mg/dL 07/05/23 07/06/23 Range/Units 20:43 07:27 POC Glucose (mg/dL) 299 H 179 H (70-110) mg/dL
[2023-07-06] MEDS ORDERED: TRIMETHOBENZAMIDE 100 MG/ML 2 ML VIAL IM PRN (12:47)
[2023-07-06] MEDS: PROCHLORPERAZINE INJ 10 MG/2 ML VIAL IVP PRN ×2 (14:10→21:14)
--- NOTE | 2023-07-06 14:30 | P.PN ---
Subjective Progress Note Date: 07/06/23 Principal diagnosis: Abd pain, mesenteric mass, intractable N,V, In f/u today pt is very tired, she has had upset stomach, nausea, abdominal discomfort since about 2 AM. She is able to take sips of fluids, when she took her pills the next several hours or consumed with indigestion, burning sensation, upset stomach and dry heaves. Objective - Vital Signs Vital signs: Vital Signs Temp 98.7 F 07/06/23 13:02 Pulse 59 L 07/06/23 13:02 Resp 14 07/06/23 13:02 BP 124/73 07/06/23 13:02 Pulse Ox 95 07/06/23 13:02 FiO2 Intake & Output 07/05/23 07/06/23 07/06/23 18:59 06:59 18:59 Intake Total 1400 1400 Output Total 20 Balance 1380 1400 Weight 69.853 kg Intake: IV 400 Intake, IV Titration 1000 900 Amount Potassium Chloride 10 meq 100 In Water For Injection 1 100ml.bag @ 100 mls/hr IVPB Q1H FARIDEH Rx#: [id number] Sodium Chloride 0.9% 1, 900 900 000 ml @ 75 mls/hr IV . [id number] FARIDEH Rx#:[id number] Oral 500 Output: Estimated Blood Loss 20 Other: Voiding Method Toilet Toilet Toilet # Voids 3 - Constitutional General appearance: Present: average body habitus, cooperative, mild distress - EENT Eyes: Present: anicteric sclerae, edentulous ENT: Present: hearing grossly normal - Respiratory Details: Respirations even and unlabored at rest - Cardiovascular Details: Skin warm and dry to the touch - Peripheral edema leg Peripheral Edema: bilateral: None - Neurologic Neurologic: Present: CNII-XII intact - Musculoskeletal Musculoskeletal: Present: strength equal bilaterally - Psychiatric Psychiatric: Present: A&O x's 3, appropriate affect, intact judgment & insight - Labs CBC & Chem 7: 07/05/23 06:00 07/05/23 06:00 Labs: Abnormal Lab Results - Last 24 Hours (Table) 07/05/23 07/05/23 07/06/23 Range/Units 17:46 20:43 07:27 POC Glucose (mg/dL) 111 H 299 H 179 H (70-110) mg/dL 07/06/23 Range/Units 11:55 POC Glucose (mg/dL) 126 H (70-110) mg/dL Assessment and Plan (1) Intractable vomiting Current Visit: Yes Status: Acute Priority: High Code(s): R11.10 - VOMITING, UNSPECIFIED SNOMED Code(s): 830758563 (2) Mesenteric mass Current Visit: Yes Status: Acute Priority: High Code(s): K63.89 - OTHER SPECIFIED DISEASES OF INTESTINE SNOMED Code(s): 421466068 Plan: Mesenteric mass -10 x [address] scan -Surgery has performed laproscopic biopsy. Some ascites was also collected and sent for evaluation. Pending path -LDH elevated. CEA, CA 125, CA-19-9 all within normal limits Intractable nausea and vomiting -Secondary to 10 x 8 cm mass with extrinsic compression on the duodenal area and posterior aspect of the stomach. -Anti-emetics ordered more frequently. Multiple anti-emetics prescribed. Pain meds ordered. Ativan added today for nausea and anxiety. -Discussed with Attending SIZING END BANDER concerns for patient not being able to tolerate any oral intake, uncontrolled symptoms. Once biopsy results are available Oncologist will be able to decide what the next best step is-surgery, radiation, chemotherapy. [place] reasonable to keep pt in hospital for now. -Will continue to follow up with patient daily and assess her
[2023-07-06 17:28] LABS: Glucose,Whole Blood 77 mg/dL (70-110)
[2023-07-06] MEDS: SODIUM CHLORIDE 0.9% 1,000 ML IV SCH (19:20)
[2023-07-06 20:45] LABS: Glucose,Whole Blood 93 mg/dL (70-110)
[2023-07-06] MEDS: ATORVASTATIN 10 MG TAB PO SCH ×2 (21:06→21:09)
[2023-07-06] MEDS: LEVOTHYROXINE 75 MCG TAB PO SCH ×2 (21:06→21:09)
[2023-07-06] MEDS: INSULIN DETEMIR (LEVEMIR) 100 UNIT/ML SYR SQ SCH (21:09)
--- NOTE | 2023-07-06 22:16 | P.PN ---
Subjective Progress Note Date: 07/06/23 62-year-old pleasant female came in with the severe epigastric abdominal pain feels nauseous but denied any vomiting patient had a CT of the abdomen which showed a mass around the epigastric area concern for lymphoma or pancreatic cancers GI malignancy. Oncology was consulted there is no computed tomography scan lab abnormalities. Patient is receiving Toradol and Dilaudid for pain. 07/04/2023 Patient is still having abdominal pain and nausea patient underwent upper GI endoscopy showed antral gastritis biopsies were up and patient will undergo percutaneous biopsy of the lesion that was found in the abdomen. Patient will be started on [place], MiraLAX as needed for constipation Dilaudid will be con tinued. 07/05/2023 Patient is evaluated today resting in bed. Currently NPO and pending laproscopic biopsy of the mesenteric mass. Continues on antiemetics. Reports abdominal pain as generalized dull and achy states the pain medication has been helping. 07/06/2023 Patient is evaluated today sitting up on edge of bed patient is dry heaving and vomiting. Patient is on alternating course of zofran and phenergan. Patient is also on protonix BID, does report that she has heart burn sensation worse with the emesis. Tums and maalox are added if patient can tolerate. Patient underwent laproscopic biopsy of the mesenteric mass yesterday. Patient will remain hospitalized until the pathology is back. Review of systems. Constitutional: reports fatigue, denied any fever. Cardio vascular: denied any chest pain, palpitations Gastrointestinal reports nausea, abdominal pain, poor appetite. no BM. Neurologic denied any new focal deficits All inpatient medications were reviewed and appropriate changes in these medications as dictated in the interval history and assessment and plan. PHYSICAL EXAMINATION: GENERAL: The patient is alert and oriented x3, not in any acute distress. Well developed, well nourished. HEENT: Pupils are round and equally reacting to light. EOMI. No scleral icterus. No conjunctival pallor. Normocephalic, atraumatic. No pharyngeal erythema. No thyromegaly. CARDIOVASCULAR: S1 and S2 present. No murmurs, rubs, or gallops. PULMONARY: Chest is clear to auscultation, no wheezing or crackles. ABDOMEN: Soft, nontender, nondistended, normoactive bowel sounds. No palpable organomegaly. MUSCULOSKELETAL: No joint swelling or deformity. EXTREMITIES: No cyanosis, clubbing, or pedal edema. NEUROLOGICAL: Gross neurological examination did not reveal any focal deficits. SKIN: No rashes. Assessment and plan -Abdominal masses possible necrosis and severe abdominal pain: pending pathology of the mesenteric mass; Oncology evaluated the patient, CA-19-9 and CA-125 are within normal limits -Intractible nausea and vomiting continue with antiemetics, tigan was added -Type 2 diabetes mellitus better controlled continue with the same regimen -Hypothyroidism -Hyperlipidemia DVT prophylaxis: Lovenox GI prophylaxis: Protonix The impression and plan of care has been dictated by Rosemary Ovalles, Nurse Practitioner as directed. Dr. Fernando MD I have performed a history and physical examination and medical decision making of this patient, discussed the same with the dictator, and agree with the dictators assessment and plan as written, documented as a scribe. Based on total visit time, I have performed more than 50% of this visit. Objective - Vital Signs Vital signs: Vital Signs Temp 98.8 F 07/06/23 19:38 Pulse 64 07/06/23 19:38 Resp 16 07/06/23 19:38 BP 119/64 07/06/23 19:38 Pulse Ox 98 07/06/23 19:38 FiO2 Intake & Output 07/06/23 07/06/23 07/07/23 06:59 18:59 06:59 Intake Total 1400 900 Balance 1400 900 Intake: Intake, IV Titration 900 900 Amount Sodium Chloride 0.9% 1, 900 900 000 ml @ 75 mls/hr IV . [id number] FARIDEH Rx#:[id number] Oral 500 Other: Voiding Method Toilet Toilet # Voids 3 - Labs CBC & Chem 7: 07/05/23 06:00 07/05/23 06:00 Labs: Abnormal Lab Results - Last 24 Hours (Table) 07/06/23 07/06/23 Range/Units 07:27 11:55 POC Glucose (mg/dL) 179 H 126 H (70-110) mg/dL Assessment and Plan Time with Patient: Less than 30
[2023-07-07] MEDS: KETOROLAC 15 MG/ML 1 ML VIAL IVP SCH ×4 (00:16→17:47)
[2023-07-07 07:25] LABS: Glucose,Whole Blood 140 mg/dL (70-110)
[2023-07-07] MEDS: INSULIN ASPART (NovoLOG) 100 UNIT/ML VIAL SQ SCH ×4 (07:41→20:51)
[2023-07-07] MEDS: ONDANSETRON 4 MG/2 ML VIAL IVP PRN ×2 (07:59→15:19)
[2023-07-07] MEDS: PANTOPRAZOLE 40 MG/10 ML VIAL IVP SCH ×2 (07:59→20:50)
[2023-07-07] MEDS: SENNOSIDES-DOCUSATE SODIUM 1 EACH TAB PO SCH ×2 (10:43→20:47)
[2023-07-07 11:05] LABS: Basophils # (A) 0.06 X 10*3/uL (0.00-0.10); Basophils % (A) 0.8 %; Eosinophils # (A) 0.15 X 10*3/uL (0.04-0.35); HCT 30.5 % (37.2-46.3); HGB 9.5 d/dL (12.0-15.0); Lymphocytes # (A) 1.26 X 10*3/uL (0.90-5.00); Lymphocytes % (A) 17.1 %; MCH 28.3 pg (27.0-32.0); MCHC 31.1 d/dL (32.0-37.0); MCV 90.8 FL (80.0-97.0); Mean Platelet Volume 10.8 FL (9.5-12.2); Monocytes # (A) 0.52 X 10*3/uL (0.20-1.00); Monocytes % (A) 7.1 %; NRBC Per 100 WBC 0 X 10*3/uL (0.00-0.01); Neutrophils # (A) 5.33 X 10*3/uL (1.80-7.70); Neutrophils % (A) 72.6 %; Platelet Count 392 X 10*3/uL (140-440); RBC 3.36 X 10*6/uL (4.10-5.20); RDW 13.1 % (11.5-14.5); WBC 7.35 X 10*3/uL (4.50-10.00)
[2023-07-07 11:19] LABS: BUN/Creat Ratio 18.67 Ratio (12.00-20.00); Blood Urea Nitrogen 11.2 mg/dL (9.0-27.0); Calcium 8.4 mg/dL (8.7-10.3); Carbon Dioxide 20.9 mmol/L (21.6-31.8); Chloride 110 mmol/L (96-109); Glucose 137 mg/dL (70-110); Potassium 3.7 mmol/L (3.5-5.5); Sodium 143 mmol/L (135-145)
[2023-07-07] MEDS: PROCHLORPERAZINE INJ 10 MG/2 ML VIAL IVP PRN ×2 (11:49→17:48)
[2023-07-07] MEDS ORDERED: POTASSIUM CHLORIDE ER 20 MEQ TAB.ER PO STA (11:56)
[2023-07-07 12:21] LABS: Glucose,Whole Blood 211 mg/dL (70-110)
[2023-07-07] MEDS: SODIUM CHLORIDE 0.9% 1,000 ML IV SCH (13:12)
--- NOTE | 2023-07-07 13:15 | P.PN ---
Subjective Progress Note Date: 07/07/23 CHIEF COMPLAINT: Mesenteric mass HISTORY OF PRESENT ILLNESS: Patient is postop day #2 status post diagnostic laparoscopy, biopsy of retroperitoneal mass and fluid collection for cytology. Patient reports her abdominal pain and nausea is better controlled today. Afebrile. WBC 7.35 Hgb 9.5 platelets 392 sodium 143 potassium 3.7 creatinine 0.6 magnesium 2.0. Patient followed by oncology PHYSICAL EXAM: VITAL SIGNS: Reviewed. GENERAL: Well-developed in no acute distress. ABDOMEN: Soft. Nondistended. Mild epigastric discomfort with palpation. Incisions clean dry and intact NEUROLOGIC: Alert and oriented. Cranial nerves II through XII grossly intact. ASSESSMENT: 1. Retroperitoneal mass status post biopsy 2. Epigastric abdominal pain with nausea and vomiting 3. Conglomerate mass within the mesentery with areas of suspected necrosis noted on CT 4. Status post EGD revealing antral gastritis and diaphragmatic hernia PLAN: -Continue pain management -Continue regular diet -Continue antiemetics -Awaiting Pathology and cytology results -Recommend discharge when patient tolerates diet and pain is controlled Physician Revenue Accounting Manager note has been reviewed by physician. Signing provider agrees with the documented findings, assessment, and plan of care. Objective - Vital Signs Vital signs: Vital Signs Temp 98.5 F 07/07/23 07:22 Pulse 72 07/07/23 07:22 Resp 18 07/07/23 07:22 BP 169/60 07/07/23 07:22 Pulse Ox 99 07/07/23 07:22 FiO2 Intake & Output 07/06/23 07/07/23 07/07/23 18:59 06:59 18:59 Intake Total 900 1200 Balance 900 1200 Intake: Intake, IV Titration 900 900 Amount Sodium Chloride 0.9% 1, 900 900 000 ml @ 75 mls/hr IV . [id number] [facility] Rx#:[id number] Oral 300 Other: Voiding Method Toilet Toilet # Voids 2 - Labs CBC & Chem 7: 07/07/23 06:24 07/07/23 06:24 Labs: Abnormal Lab Results - Last 24 Hours (Table) 07/06/23 07/07/23 Range/Units 11:55 07:23 POC Glucose (mg/dL) 126 H 140 H (70-110) mg/dL
--- NOTE | 2023-07-07 15:09 | P.PN ---
Subjective Progress Note Date: 07/07/23 62-year-old pleasant female came in with the severe epigastric abdominal pain feels nauseous but denied any vomiting patient had a CT of the abdomen which showed a mass around the epigastric area concern for lymphoma or pancreatic cancers GI malignancy. Oncology was consulted there is no computed tomography scan lab abnormalities. Patient is receiving Toradol and Dilaudid for pain. 07/04/2023 Patient is still having abdominal pain and nausea patient underwent upper GI endoscopy showed antral gastritis biopsies were up and patient will undergo percutaneous biopsy of the lesion that was found in the abdomen. Patient will be started on [place], MiraLAX as needed for constipation Dilaudid will be con tinued. 07/05/2023 Patient is evaluated today resting in bed. Currently NPO and pending laproscopic biopsy of the mesenteric mass. Continues on antiemetics. Reports abdominal pain as generalized dull and achy states the pain medication has been helping. 07/06/2023 Patient is evaluated today sitting up on edge of bed patient is dry heaving and vomiting. Patient is on alternating course of zofran and phenergan. Patient is also on protonix BID, does report that she has heart burn sensation worse with the emesis. Tums and maalox are added if patient can tolerate. Patient underwent laproscopic biopsy of the mesenteric mass yesterday. Patient will remain hospitalized until the pathology is back. 07/07/2023 Patient is evaluated today resting in bed. Nausea and abdominal pain are improved compared to yesterday. She remains on alternating zofran and compazine. Tigan PRN on board. Toradol for pain management. She is tolerating some diet. gastric antrum biopsy shows chronic gastritis. Pending pathology from the retroperitoneal mass. Review of systems. Constitutional: reports fatigue, denied any fever. Cardio vascular: denied any chest pain, palpitations Gastrointestinal reports nausea, abdominal pain, poor appetite. no BM. Neurologic denied any new focal deficits All inpatient medications were reviewed and appropriate changes in these medications as dictated in the interval history and assessment and plan. PHYSICAL EXAMINATION: GENERAL: The patient is alert and oriented x3, not in any acute distress. Well developed, well nourished. HEENT: Pupils are round and equally reacting to light. EOMI. No scleral icterus. No conjunctival pallor. Normocephalic, atraumatic. No pharyngeal erythema. No thyromegaly. CARDIOVASCULAR: S1 and S2 present. No murmurs, rubs, or gallops. PULMONARY: Chest is clear to auscultation, no wheezing or crackles. ABDOMEN: Soft, nontender, nondistended, normoactive bowel sounds. No palpable organomegaly. MUSCULOSKELETAL: No joint swelling or deformity. EXTREMITIES: No cyanosis, clubbing, or pedal edema. NEUROLOGICAL: Gross neurological examination did not reveal any focal deficits. SKIN: No rashes. Assessment and plan -Abdominal masses possible necrosis and severe abdominal pain: pending pathology of the mesenteric mass; Oncology evaluated the patient, CA-19-9 and CA-125 are within normal limits -Intractible nausea and vomiting continue with antiemetics, tigan was added -Type 2 diabetes mellitus better controlled continue with the same regimen -Hypothyroidism -Hyperlipidemia DVT prophylaxis: Lovenox GI prophylaxis: Protonix Patient will be continued on supportive care and pending pathology. The impression and plan of care has been dictated by Rosemary Ovalles, Nurse Practitioner as directed. Dr. Fernando MD I have performed a history and physical examination and medical decision making of this patient, discussed the same with the dictator, and agree with the dictators assessment and plan as written, documented as a scribe. Based on total visit time, I have performed more than 50% of this visit. Objective - Vital Signs Vital signs: Vital Signs Temp 97.9 F 07/07/23 13:27 Pulse 75 07/07/23 13:27 Resp 20 07/07/23 13:27 BP 146/73 07/07/23 13:27 Pulse Ox 98 07/07/23 13:27 FiO2 Intake & Output 07/06/23 07/07/23 07/07/23 18:59 06:59 18:59 Intake Total 900 1200 Balance 900 1200 Intake: Intake, IV Titration 900 900 Amount Sodium Chloride 0.9% 1, 900 900 000 ml @ 75 mls/hr IV . [id number] [facility] Rx#:[id number] Oral 300 Other: Voiding Method Toilet Toilet # Voids 2 - Labs CBC & Chem 7: 07/07/23 06:24 07/07/23 06:24 Labs: Abnormal Lab Results - Last 24 Hours (Table) 07/07/23 07/07/23 07/07/23 Range/Units 06:24 06:24 07:23 RBC 3.36 L (4.10-5.20) X 10*6/uL Hgb 9.5 L (12.0-15.0) d/dL Hct 30.5 L (37.2-46.3) % MCHC 31.1 L (32.0-37.0) d/dL Chloride 110 H (96-109) mmol/L Carbon Dioxide 20.9 L (21.6-31.8) mmol/L Anion Gap 12.10 H (4.00-12.00) mmol/L Glucose 137 H (70-110) mg/dL POC Glucose (mg/dL) 140 H (70-110) mg/dL Calcium 8.4 L (8.7-10.3) mg/dL 07/07/23 Range/Units 12:15 RBC (4.10-5.20) X 10*6/uL Hgb (12.0-15.0) d/dL Hct (37.2-46.3) % MCHC (32.0-37.0) d/dL Chloride (96-109) mmol/L Carbon Dioxide (21.6-31.8) mmol/L Anion Gap (4.00-12.00) mmol/L Glucose (70-110) mg/dL POC Glucose (mg/dL) 211 H (70-110) mg/dL Calcium (8.7-10.3) mg/dL Assessment and Plan Time with Patient: Less than 30
[2023-07-07] MEDS: LACTATED RINGERS 1,000 ML IV SCH (15:23)
[2023-07-07 17:30] LABS: Glucose,Whole Blood 225 mg/dL (70-110)
--- NOTE | 2023-07-07 19:58 | P.PN ---
Subjective Progress Note Date: 07/07/23 Principal diagnosis: mesenteric mass Objective - Vital Signs Vital signs: Vital Signs Temp 98.7 F 07/07/23 19:26 Pulse 66 07/07/23 19:26 Resp 18 07/07/23 19:26 BP 122/68 07/07/23 19:26 Pulse Ox 97 07/07/23 19:26 FiO2 Intake & Output 07/07/23 07/07/23 07/08/23 06:59 18:59 06:59 Intake Total 1200 Balance 1200 Intake: Intake, IV Titration 900 Amount Sodium Chloride 0.9% 1, 900 000 ml @ 75 mls/hr IV . [id number] [facility] Rx#:[id number] Oral 300 Other: Voiding Method Toilet # Voids 2 - Constitutional General appearance: Present: average body habitus, no acute distress - EENT Eyes: Present: anicteric sclerae, EOMI ENT: Present: hearing grossly normal - Respiratory Details: breathing is even and unlabored - Cardiovascular Details: skin warm and dry - Integumentary Integumentary: Absent: cyanotic - Neurologic Neurologic: Present: CNII-XII intact - Musculoskeletal Musculoskeletal: Present: strength equal bilaterally - Psychiatric Psychiatric: Present: A&O x's 3, appropriate affect, intact judgment & insight - Labs CBC & Chem 7: 07/07/23 06:24 07/07/23 06:24 Labs: Abnormal Lab Results - Last 24 Hours (Table) 07/07/23 07/07/23 07/07/23 Range/Units 06:24 06:24 07:23 RBC 3.36 L (4.10-5.20) X 10*6/uL Hgb 9.5 L (12.0-15.0) d/dL Hct 30.5 L (37.2-46.3) % MCHC 31.1 L (32.0-37.0) d/dL Chloride 110 H (96-109) mmol/L Carbon Dioxide 20.9 L (21.6-31.8) mmol/L Anion Gap 12.10 H (4.00-12.00) mmol/L Glucose 137 H (70-110) mg/dL POC Glucose (mg/dL) 140 H (70-110) mg/dL Calcium 8.4 L (8.7-10.3) mg/dL 07/07/23 07/07/23 Range/Units 12:15 17:29 RBC (4.10-5.20) X 10*6/uL Hgb (12.0-15.0) d/dL Hct (37.2-46.3) % MCHC (32.0-37.0) d/dL Chloride (96-109) mmol/L Carbon Dioxide (21.6-31.8) mmol/L Anion Gap (4.00-12.00) mmol/L Glucose (70-110) mg/dL POC Glucose (mg/dL) 211 H 225 H (70-110) mg/dL Calcium (8.7-10.3) mg/dL Assessment and Plan (1) Intractable vomiting Current Visit: Yes Status: Acute Priority: High Code(s): R11.10 - VOMITING, UNSPECIFIED SNOMED Code(s): 134103750 (2) Mesenteric mass Current Visit: Yes Status: Acute Priority: High Code(s): K63.89 - OTHER SPECIFIED DISEASES OF INTESTINE SNOMED Code(s): 672648375 Plan: Mesenteric mass -10 x [address] scan -Surgery has performed laproscopic biopsy. Ascitic fluid was also collected and sent for evaluation. Results pending -LDH elevated. CEA, CA 125, CA-19-9 all within normal limits Intractable nausea and vomiting -Secondary to 10 x 8 cm mass with extrinsic compression on the duodenal area and posterior aspect of the stomach. -Anti-emetics ordered more frequently. Multiple anti-emetics prescribed. Reports improvement in symptoms today. Tolerating some oral intake without issues. Zofran rx sent to pharmacy for discharge -Pt unable to tolerate norco tablet. Will change to elixir. Spoke with nursing to try to use PO med rather than IV meds unless needed for breakthrough pain, so appropriate pain med regimen can be prescribed upon discharge. Will continue to monitor and make adjustments as needed -Once biopsy results are available Oncologist will be able to decide what the next best step is-surgery, radiation, chemotherapy. [place] reasonable to keep pt in hospital for now until symptoms and oral intake is better managed
[2023-07-07 20:40] LABS: Glucose,Whole Blood 245 mg/dL (70-110)
[2023-07-07] MEDS: ATORVASTATIN 10 MG TAB PO SCH (20:47)
[2023-07-07] MEDS: LEVOTHYROXINE 75 MCG TAB PO SCH (20:47)
[2023-07-07] MEDS: INSULIN DETEMIR (LEVEMIR) 100 UNIT/ML SYR SQ SCH (20:50)
[2023-07-07] MEDS: HYDROcodone/APAP 15 ML SOLUTION PO PRN (22:12)
[2023-07-08] MEDS: KETOROLAC 15 MG/ML 1 ML VIAL IVP PRN (00:07)
[2023-07-08] MEDS: PROCHLORPERAZINE INJ 10 MG/2 ML VIAL IVP PRN ×2 (00:36→11:48)
[2023-07-08] MEDS: HYDROcodone/APAP 15 ML SOLUTION PO PRN ×2 (02:07→17:05)
[2023-07-08] MEDS: LACTATED RINGERS 1,000 ML IV SCH ×3 (03:59→20:29)
[2023-07-08 08:09] LABS: Glucose,Whole Blood 72 mg/dL (70-110)
[2023-07-08] MEDS: INSULIN ASPART (NovoLOG) 100 UNIT/ML VIAL SQ SCH ×4 (08:15→21:17)
[2023-07-08] MEDS: PANTOPRAZOLE 40 MG/10 ML VIAL IVP SCH ×2 (08:54→20:28)
[2023-07-08] MEDS: SENNOSIDES-DOCUSATE SODIUM 1 EACH TAB PO SCH ×2 (08:54→20:26)
[2023-07-08] MEDS: ONDANSETRON 4 MG/2 ML VIAL IVP PRN (09:08)
[2023-07-08] MEDS ORDERED: LIDOCAINE 1% (10MG/ML) FOR IV START INTRADERMA PRN (10:14)
[2023-07-08] MEDS: MAG HYDROX/AL HYDROX/SIMETH 30 ML CUP PO PRN (10:30)
[2023-07-08 12:24] LABS: Glucose,Whole Blood 93 mg/dL (70-110)
--- NOTE | 2023-07-08 13:09 | P.PN ---
Subjective Progress Note Date: 07/08/23 62-year-old pleasant female came in with the severe epigastric abdominal pain feels nauseous but denied any vomiting patient had a CT of the abdomen which showed a mass around the epigastric area concern for lymphoma or pancreatic cancers GI malignancy. Oncology was consulted there is no computed tomography scan lab abnormalities. Patient is receiving Toradol and Dilaudid for pain. 07/04/2023 Patient is still having abdominal pain and nausea patient underwent upper GI endoscopy showed antral gastritis biopsies were up and patient will undergo percutaneous biopsy of the lesion that was found in the abdomen. Patient will be started on [place], MiraLAX as needed for constipation Dilaudid will be con tinued. 07/05/2023 Patient is evaluated today resting in bed. Currently NPO and pending laproscopic biopsy of the mesenteric mass. Continues on antiemetics. Reports abdominal pain as generalized dull and achy states the pain medication has been helping. 07/06/2023 Patient is evaluated today sitting up on edge of bed patient is dry heaving and vomiting. Patient is on alternating course of zofran and phenergan. Patient is also on protonix BID, does report that she has heart burn sensation worse with the emesis. Tums and maalox are added if patient can tolerate. Patient underwent laproscopic biopsy of the mesenteric mass yesterday. Patient will remain hospitalized until the pathology is back. 07/07/2023 Patient is evaluated today resting in bed. Nausea and abdominal pain are improved compared to yesterday. She remains on alternating zofran and compazine. Tigan PRN on board. Toradol for pain management. She is tolerating some diet. gastric antrum biopsy shows chronic gastritis. Pending pathology from the retroperitoneal mass. 07/08/2023 She is resting in bed with family at the bedside. She has tolerated increased diet currently on a regular diet. She continues on alternating antibiotics and pain management. She did require increased pain medication overnight was having significant pain. She states that she is up in the hallway ambulating quite a bit yesterday. Pathology is currently pending for laparoscopic biopsy of the abdominal mass. Plan is for patient to remain inpatient the pathology is finalized a treatment plan can be made. Review of systems. Constitutional: reports fatigue, denied any fever. Cardio vascular: denied any chest pain, palpitations Gastrointestinal reports nausea, abdominal pain, poor appetite. no BM. Neurologic denied any new focal deficits All inpatient medications were reviewed and appropriate changes in these medications as dictated in the interval history and assessment and plan. PHYSICAL EXAMINATION: GENERAL: The patient is alert and oriented x3, not in any acute distress. Well developed, well nourished. HEENT: Pupils are round and equally reacting to light. EOMI. No scleral icterus. No conjunctival pallor. Normocephalic, atraumatic. No pharyngeal erythema. No thyromegaly. CARDIOVASCULAR: S1 and S2 present. No murmurs, rubs, or gallops. PULMONARY: Chest is clear to auscultation, no wheezing or crackles. ABDOMEN: Soft, nontender, nondistended, normoactive bowel sounds. No palpable organomegaly. MUSCULOSKELETAL: No joint swelling or deformity. EXTREMITIES: No cyanosis, clubbing, or pedal edema. NEUROLOGICAL: Gross neurological examination did not reveal any focal deficits. SKIN: No rashes. Assessment and plan -Abdominal masses possible necrosis and severe abdominal pain: pending pathology of the mesenteric mass; Oncology evaluated the patient, CA-19-9 and CA-125 are within normal limits -Intractible nausea and vomiting continue with antiemetics, tigan was added -Type 2 diabetes mellitus better controlled continue with the same regimen -Hypothyroidism -Hyperlipidemia DVT prophylaxis: Lovenox GI prophylaxis: Protonix Patient will be continued on supportive care and pending pathology. The impression and plan of care has been dictated by Rosemary Ovalles, Nurse Practitioner as directed. Dr. Fernando MD I have performed a history and physical examination and medical decision making of this patient, discussed the same with the dictator, and agree with the dictators assessment and plan as written, documented as a scribe. Based on total visit time, I have performed more than 50% of this visit. Objective - Vital Signs Vital signs: Vital Signs Temp 98.3 F 07/08/23 08:00 Pulse 60 07/08/23 08:00 Resp 16 07/08/23 01:53 BP 127/64 07/08/23 08:00 Pulse Ox 96 07/08/23 08:00 FiO2 Intake & Output 07/07/23 07/08/23 07/08/23 18:59 06:59 18:59 Intake Total 1100 Balance 1100 Intake: Intake, IV Titration 900 Amount Lactated Ringers 1,000 ml 900 @ 75 mls/hr IV .[id number] [facility] Rx#:[id number] Oral 200 Other: Voiding Method Toilet Toilet # Voids 2 1 - Labs CBC & Chem 7: 07/07/23 06:24 07/07/23 06:24 Labs: Abnormal Lab Results - Last 24 Hours (Table) 07/07/23 07/07/23 Range/Units 17:29 20:38 POC Glucose (mg/dL) 225 H 245 H (70-110) mg/dL Assessment and Plan Time with Patient: Less than 30
--- NOTE | 2023-07-08 13:28 | P.PN ---
Subjective Progress Note Date: 07/08/23 Patient seen and evaluated bedside. Patient still has abdominal pain however is not taking oral medications. Objective - Vital Signs Vital signs: Vital Signs Temp 98.3 F 07/08/23 08:00 Pulse 60 07/08/23 08:00 Resp 16 07/08/23 01:53 BP 127/64 07/08/23 08:00 Pulse Ox 96 07/08/23 08:00 FiO2 Intake & Output 07/07/23 07/08/23 07/08/23 18:59 06:59 18:59 Intake Total 1100 Balance 1100 Intake: Intake, IV Titration 900 Amount Lactated Ringers 1,000 ml 900 @ 75 mls/hr IV .[id number] [facility] Rx#:[id number] Oral 200 Other: Voiding Method Toilet Toilet # Voids 2 1 - Exam General no acute distress Current Vaseretic rate and rhythm Pulmonary no labored breathing Abdomen soft, tender to palpation, no guarding rebound tenderness. Incisions intact - Labs CBC & Chem 7: 07/07/23 06:24 07/07/23 06:24 Labs: Abnormal Lab Results - Last 24 Hours (Table) 07/07/23 07/07/23 Range/Units 17:29 20:38 POC Glucose (mg/dL) 225 H 245 H (70-110) mg/dL Assessment and Plan Assessment: 8-year-old female status post diagnostic laparoscopy with mesenteric biopsy Patient is doing well she is still having abdominal pain from previous admission. I do not think this pain is secondary to surgery recommend oral pills as she is only getting IV. She also complains of ulcer pain recommend Maalox/GI cocktail.
[2023-07-08] MEDS: CALCIUM CARBONATE 500 MG CHEWABLE PO PRN (17:05)
[2023-07-08 17:18] LABS: Glucose,Whole Blood 152 mg/dL (70-110)
[2023-07-08] MEDS: LORazepam 2 MG/ML INJ IV PRN (17:55)
[2023-07-08] MEDS: ATORVASTATIN 10 MG TAB PO SCH (20:25)
[2023-07-08] MEDS: LEVOTHYROXINE 75 MCG TAB PO SCH (20:28)
[2023-07-08 21:10] LABS: Glucose,Whole Blood 130 mg/dL (70-110)
[2023-07-08] MEDS: INSULIN DETEMIR (LEVEMIR) 100 UNIT/ML SYR SQ SCH (21:17)
[2023-07-09] MEDS: LORazepam 2 MG/ML INJ IV PRN ×2 (00:06→13:27)
[2023-07-09] MEDS: LACTATED RINGERS 1,000 ML IV SCH ×3 (05:44→19:43)
[2023-07-09 07:33] LABS: Glucose,Whole Blood 172 mg/dL (70-110)
[2023-07-09] MEDS: INSULIN ASPART (NovoLOG) 100 UNIT/ML VIAL SQ SCH ×4 (08:11→21:05)
[2023-07-09] MEDS: CALCIUM CARBONATE 500 MG CHEWABLE PO PRN ×2 (08:11→18:24)
[2023-07-09] MEDS: ONDANSETRON 4 MG/2 ML VIAL IVP PRN (08:11)
[2023-07-09] MEDS: PANTOPRAZOLE 40 MG/10 ML VIAL IVP SCH ×2 (08:11→20:06)
[2023-07-09] MEDS: SENNOSIDES-DOCUSATE SODIUM 1 EACH TAB PO SCH ×2 (08:12→19:43)
--- NOTE | 2023-07-09 11:26 | P.PN ---
Subjective Progress Note Date: 07/09/23 Principal diagnosis: Mesenteric mass Patient says her pain is improved today. She states that after utilizing the Ativan her discomforts improved dramatically. No nausea or vomiting. Tolerating regular diet. Objective - Vital Signs Vital signs: Vital Signs Temp 98.4 F 07/09/23 07:30 Pulse 66 07/09/23 07:30 Resp 17 07/09/23 07:30 BP 149/75 07/09/23 07:30 Pulse Ox 96 07/09/23 07:30 FiO2 Intake & Output 07/08/23 07/09/23 07/09/23 18:59 06:59 18:59 Intake Total 1490 Output Total 10 Balance 1490 -10 Intake: Intake, IV Titration 900 Amount Lactated Ringers 1,000 ml 900 @ 75 mls/hr IV .[id number] [facility] Rx#:[id number] Oral 590 Output: Emesis 10 Other: Voiding Method Toilet Toilet Toilet # Voids 1 2 1 # Bowel Movements 1 1 - Exam Abdomen: Soft, mild tenderness, incisions clean and dry - Labs CBC & Chem 7: 07/07/23 06:24 07/07/23 06:24 Labs: Abnormal Lab Results - Last 24 Hours (Table) 07/08/23 07/08/23 07/09/23 Range/Units 17:17 21:09 07:32 POC Glucose (mg/dL) 152 H 130 H 172 H (70-110) mg/dL Assessment and Plan (1) Mesenteric mass Narrative/Plan: Patient's symptoms have improved. Continue Ativan and analgesics. Await final pathology. Continue regular diet. Current Visit: Yes Status: Acute Priority: High Code(s): K63.89 - OTHER SPECIFIED DISEASES OF INTESTINE SNOMED Code(s): 509681091
[2023-07-09 12:45] LABS: Glucose,Whole Blood 149 mg/dL (70-110)
[2023-07-09 13:30] LABS: Blood Urea Nitrogen 6.1 mg/dL (9.0-27.0); Calcium 8.4 mg/dL (8.7-10.3); Carbon Dioxide 22.9 mmol/L (21.6-31.8); Chloride 103 mmol/L (96-109); Glucose 183 mg/dL (70-110); Sodium 139 mmol/L (135-145)
[2023-07-09 17:13] LABS: Glucose,Whole Blood 194 mg/dL (70-110)
[2023-07-09] MEDS: MAG HYDROX/AL HYDROX/SIMETH 30 ML CUP PO PRN (18:16)
[2023-07-09] MEDS: HYDROcodone/APAP 15 ML SOLUTION PO PRN (18:16)
[2023-07-09] MEDS: LEVOTHYROXINE 75 MCG TAB PO SCH (19:43)
[2023-07-09] MEDS: ATORVASTATIN 10 MG TAB PO SCH (19:43)
[2023-07-09 20:50] LABS: Glucose,Whole Blood 185 mg/dL (70-110)
[2023-07-09] MEDS: INSULIN DETEMIR (LEVEMIR) 100 UNIT/ML SYR SQ SCH (21:06)
--- NOTE | 2023-07-09 21:33 | P.PN ---
Subjective Progress Note Date: 07/09/23 62-year-old pleasant female came in with the severe epigastric abdominal pain feels nauseous but denied any vomiting patient had a CT of the abdomen which showed a mass around the epigastric area concern for lymphoma or pancreatic cancers GI malignancy. Oncology was consulted there is no computed tomography scan lab abnormalities. Patient is receiving Toradol and Dilaudid for pain. 07/04/2023 Patient is still having abdominal pain and nausea patient underwent upper GI endoscopy showed antral gastritis biopsies were up and patient will undergo percutaneous biopsy of the lesion that was found in the abdomen. Patient will be started on [place], MiraLAX as needed for constipation Dilaudid will be con tinued. 07/05/2023 Patient is evaluated today resting in bed. Currently NPO and pending laproscopic biopsy of the mesenteric mass. Continues on antiemetics. Reports abdominal pain as generalized dull and achy states the pain medication has been helping. 07/06/2023 Patient is evaluated today sitting up on edge of bed patient is dry heaving and vomiting. Patient is on alternating course of zofran and phenergan. Patient is also on protonix BID, does report that she has heart burn sensation worse with the emesis. Tums and maalox are added if patient can tolerate. Patient underwent laproscopic biopsy of the mesenteric mass yesterday. Patient will remain hospitalized until the pathology is back. 07/07/2023 Patient is evaluated today resting in bed. Nausea and abdominal pain are improved compared to yesterday. She remains on alternating zofran and compazine. Tigan PRN on board. Toradol for pain management. She is tolerating some diet. gastric antrum biopsy shows chronic gastritis. Pending pathology from the retroperitoneal mass. 07/08/2023 She is resting in bed with family at the bedside. She has tolerated increased diet currently on a regular diet. She continues on alternating antibiotics and pain management. She did require increased pain medication overnight was having significant pain. She states that she is up in the hallway ambulating quite a bit yesterday. Pathology is currently pending for laparoscopic biopsy of the abdominal mass. Plan is for patient to remain inpatient the pathology is finalized a treatment plan can be made. 07/09/2023 Patient evaluated today resting in bed. She reports improved pain control states she was able to get some sleep last night. Patient also had a bowel movement. Patient continues on IV toradol, norco elixir and IV dilaudid for breakthrough pain. Remains on LR at 75 mls/hr. Pathology pending. Review of systems. Constitutional: reports fatigue, denied any fever. Cardio vascular: denied any chest pain, palpitations Gastrointestinal reports nausea, abdominal pain, poor appetite. Neurologic denied any new focal deficits All inpatient medications were reviewed and appropriate changes in these medications as dictated in the interval history and assessment and plan. PHYSICAL EXAMINATION: GENERAL: The patient is alert and oriented x3, not in any acute distress. Well developed, well nourished. HEENT: Pupils are round and equally reacting to light. EOMI. No scleral icterus. No conjunctival pallor. Normocephalic, atraumatic. No pharyngeal erythema. No thyromegaly. CARDIOVASCULAR: S1 and S2 present. No murmurs, rubs, or gallops. PULMONARY: Chest is clear to auscultation, no wheezing or crackles. ABDOMEN: Soft, Mild tenderness, nondistended, normoactive bowel sounds. No palpable organomegaly. MUSCULOSKELETAL: No joint swelling or deformity. EXTREMITIES: No cyanosis, clubbing, or pedal edema. NEUROLOGICAL: Gross neurological examination did not reveal any focal deficits. SKIN: No rashes. Assessment and plan -Abdominal masses possible necrosis and severe abdominal pain: pending pathology of the mesenteric mass; Oncology evaluated the patient, CA-19-9 and CA-125 are within normal limits -Intractible nausea and vomiting continue with antiemetics, tigan was added -Type 2 diabetes mellitus better controlled continue with the same regimen -Hypothyroidism -Hyperlipidemia DVT prophylaxis: Lovenox GI prophylaxis: Protonix Patient will be continued on supportive care and pending pathology. Oncology following. Patient will remain hospitalized until pathology is resulted for treatment plan. The impression and plan of care has been dictated by Rosemary Ovalles Nurse Practitioner as directed. Dr. Fernando MD I have performed a history and physical examination and medical decision making of this patient, discussed the same with the dictator, and agree with the dictators assessment and plan as written, documented as a scribe. Based on total visit time, I have performed more than 50% of this visit. Objective - Vital Signs Vital signs: Vital Signs Temp 99.7 F H 07/09/23 19:17 Pulse 71 07/09/23 19:17 Resp 18 07/09/23 19:17 BP 128/72 07/09/23 19:17 Pulse Ox 97 07/09/23 19:17 FiO2 Intake & Output 07/09/23 07/09/23 07/10/23 06:59 18:59 06:59 Intake Total 1490 Output Total 10 Balance 1490 -10 Intake: Intake, IV Titration 900 Amount Lactated Ringers 1,000 ml 900 @ 75 mls/hr IV .[id number] [facility] Rx#:[id number] Oral 590 Output: Emesis 10 Other: Voiding Method Toilet Toilet # Voids 2 1 # Bowel Movements 1 1 - Labs CBC & Chem 7: 07/07/23 06:24 07/09/23 06:11 Labs: Abnormal Lab Results - Last 24 Hours (Table) 07/09/23 07/09/23 07/09/23 Range/Units 06:11 07:32 12:38 Anion Gap 13.10 H (4.00-12.00) mmol/L BUN 6.1 L (9.0-27.0) mg/dL Creatinine 0.5 L (0.6-1.5) mg/dL Glucose 183 H (70-110) mg/dL POC Glucose (mg/dL) 172 H 149 H (70-110) mg/dL Calcium 8.4 L (8.7-10.3) mg/dL 07/09/23 07/09/23 Range/Units 17:06 20:34 Anion Gap (4.00-12.00) mmol/L BUN (9.0-27.0) mg/dL Creatinine (0.6-1.5) mg/dL Glucose (70-110) mg/dL POC Glucose (mg/dL) 194 H 185 H (70-110) mg/dL Calcium (8.7-10.3) mg/dL Assessment and Plan Time with Patient: Less than 30
[2023-07-10] MEDS: HYDROcodone/APAP 15 ML SOLUTION PO PRN ×3 (00:09→20:31)
[2023-07-10] MEDS: LORazepam 2 MG/ML INJ IV PRN ×3 (01:31→21:25)
[2023-07-10] MEDS: ONDANSETRON 4 MG/2 ML VIAL IVP PRN (05:11)
[2023-07-10 07:40] LABS: Glucose,Whole Blood 197 mg/dL (70-110)
[2023-07-10] MEDS: LACTATED RINGERS 1,000 ML IV SCH ×3 (08:07→21:28)
[2023-07-10] MEDS: PANTOPRAZOLE 40 MG/10 ML VIAL IVP SCH ×2 (08:08→21:02)
[2023-07-10] MEDS: SENNOSIDES-DOCUSATE SODIUM 1 EACH TAB PO SCH ×2 (08:08→19:53)
[2023-07-10] MEDS: INSULIN ASPART (NovoLOG) 100 UNIT/ML VIAL SQ SCH ×4 (08:08→21:02)
[2023-07-10 09:03] LABS: Basophils # (A) 0.05 X 10*3/uL (0.00-0.10); Basophils % (A) 0.8 %; Eosinophils # (A) 0.17 X 10*3/uL (0.04-0.35); Eosinophils % (A) 2.7 %; HCT 30.5 % (37.2-46.3); HGB 9.8 d/dL (12.0-15.0); Lymphocytes # (A) 1.02 X 10*3/uL (0.90-5.00); MCH 28.1 pg (27.0-32.0); MCHC 32.1 d/dL (32.0-37.0); MCV 87.4 FL (80.0-97.0); Mean Platelet Volume 10.9 FL (9.5-12.2); Monocytes # (A) 0.57 X 10*3/uL (0.20-1.00); Monocytes % (A) 8.9 %; NRBC Per 100 WBC 0 X 10*3/uL (0.00-0.01); Neutrophils # (A) 4.51 X 10*3/uL (1.80-7.70); Neutrophils % (A) 70.8 %; Platelet Count 371 X 10*3/uL (140-440); RBC 3.49 X 10*6/uL (4.10-5.20); RDW 12.8 % (11.5-14.5); WBC 6.37 X 10*3/uL (4.50-10.00)
[2023-07-10 09:04] LABS: Blood Urea Nitrogen 5.6 mg/dL (9.0-27.0); Calcium 8.4 mg/dL (8.7-10.3); Carbon Dioxide 20.2 mmol/L (21.6-31.8); Chloride 103 mmol/L (96-109); Glucose 213 mg/dL (70-110); Magnesium 1.7 mg/dL (1.5-2.4); Potassium 3.6 mmol/L (3.5-5.5); Sodium 136 mmol/L (135-145)
--- NOTE | 2023-07-10 10:11 | P.PN ---
Subjective Progress Note Date: 07/10/23 CHIEF COMPLAINT: Mesenteric mass HISTORY OF PRESENT ILLNESS: Patient is postop day #5 status post diagnostic laparoscopy, biopsy of retroperitoneal mass and fluid collection for cytology. Patient reports that Ativan is helping with her pain. Oral intake is still decreased. She is having diarrhea. She also reports nausea. No vomiting. Pathology results pending. Afebrile. WBC 6.37 Hgb 9.8 platelet 371 PHYSICAL EXAM: VITAL SIGNS: Reviewed. GENERAL: Well-developed in no acute distress. ABDOMEN: Soft. Nondistended. Mild epigastric discomfort with palpation. Incisions clean dry and intact NEUROLOGIC: Alert and oriented. Cranial nerves II through XII grossly intact. ASSESSMENT: 1. Retroperitoneal mass status post biopsy 2. Epigastric abdominal pain with nausea and vomiting 3. Conglomerate mass within the mesentery with areas of suspected necrosis noted on CT 4. Status post EGD revealing antral gastritis and diaphragmatic hernia PLAN: -Continue pain management -Continue Ativan as needed -Continue regular diet -Continue antiemetics -Awaiting Pathology and cytology results Physician Lacemaker note has been reviewed by physician. Signing provider agrees with the documented findings, assessment, and plan of care. I have personally seen and examined the patient, reviewed the APPRAISER ART /PAs history, exam and MDM and agree with the assessment and plan as written. Based on total visit time, I have performed more than 50% of the visit. As above: Patient down getting CAT scan chest today. Spoke with the patient's . He was told by oncology biopsies showing lymphoma. Final characterization is pending. Still having nausea. Appetite remains somewhat poor. Discomfort controlled with Ativan and analgesics. apparently is requesting transfer to [facility]. No surgical plans at present. We'll sign off. Please reconsult if needed. Objective - Vital Signs Vital signs: Vital Signs Temp 98.2 F 07/10/23 07:15 Pulse 72 07/10/23 07:15 Resp 18 07/10/23 07:15 BP 131/73 07/10/23 07:15 Pulse Ox 97 07/10/23 07:15 FiO2 Intake & Output 07/09/23 07/10/23 07/10/23 18:59 06:59 18:59 Intake Total 1100 Output Total 10 Balance -10 1100 Intake: Intake, IV Titration 900 Amount Lactated Ringers 1,000 ml 900 @ 75 mls/hr IV .[id number] [facility] Rx#:[id number] Oral 200 Output: Emesis 10 Other: Voiding Method Toilet Toilet Toilet # Voids 1 2 # Bowel Movements 1 2 - Labs CBC & Chem 7: 07/11/23 05:59 07/11/23 05:59 Labs: Abnormal Lab Results - Last 24 Hours (Table) 07/09/23 07/09/23 07/09/23 Range/Units 06:11 12:38 17:06 RBC (4.10-5.20) X 10*6/uL Hgb (12.0-15.0) d/dL Hct (37.2-46.3) % Carbon Dioxide (21.6-31.8) mmol/L Anion Gap 13.10 H (4.00-12.00) mmol/L BUN 6.1 L (9.0-27.0) mg/dL Creatinine 0.5 L (0.6-1.5) mg/dL Glucose 183 H (70-110) mg/dL POC Glucose (mg/dL) 149 H 194 H (70-110) mg/dL Calcium 8.4 L (8.7-10.3) mg/dL 07/09/23 07/10/23 07/10/23 Range/Units 20:34 05:50 05:50 RBC 3.49 L (4.10-5.20) X 10*6/uL Hgb 9.8 L (12.0-15.0) d/dL Hct 30.5 L (37.2-46.3) % Carbon Dioxide 20.2 L (21.6-31.8) mmol/L Anion Gap 12.80 H (4.00-12.00) mmol/L BUN 5.6 L (9.0-27.0) mg/dL Creatinine 0.4 L (0.6-1.5) mg/dL Glucose 213 H (70-110) mg/dL POC Glucose (mg/dL) 185 H (70-110) mg/dL Calcium 8.4 L (8.7-10.3) mg/dL 07/10/23 Range/Units 07:32 RBC (4.10-5.20) X 10*6/uL Hgb (12.0-15.0) d/dL Hct (37.2-46.3) % Carbon Dioxide (21.6-31.8) mmol/L Anion Gap (4.00-12.00) mmol/L BUN (9.0-27.0) mg/dL Creatinine (0.6-1.5) mg/dL Glucose (70-110) mg/dL POC Glucose (mg/dL) 197 H (70-110) mg/dL Calcium (8.7-10.3) mg/dL
[2023-07-10 12:29] LABS: Glucose,Whole Blood 209 mg/dL (70-110)
--- NOTE | 2023-07-10 15:34 | XR ---
EXAMINATION TYPE: XR chest 1V portable DATE OF EXAM: 07/10/2023 3:24 PM COMPARISON: None TECHNIQUE: XR chest 1V portable Frontal view of the chest. CLINICAL INDICATION:Female, 62 years old with history of ? mets??; FINDINGS: Lungs/Pleura: There is no evidence of pleural effusion, focal consolidation, or pneumothorax. Pulmonary vascularity: Unremarkable. Heart/mediastinum: Cardiomediastinal silhouette is unremarkable. Musculoskeletal: No acute osseous pathology. IMPRESSION: No acute cardiopulmonary disease/process.
--- NOTE | 2023-07-10 16:01 | P.PN ---
Subjective Progress Note Date: 07/10/23 Principal diagnosis: Abd pain, mesenteric mass, intractable N,V, In f/u today pt Is reporting some relief in symptoms with the combination of medications she is currently receiving. With oral intake though she does experience burning sensation, usually followed by some dry heaves. Objective - Vital Signs Vital signs: Vital Signs Temp 98.2 F 07/10/23 11:38 Pulse 65 07/10/23 11:38 Resp 17 07/10/23 11:38 BP 136/71 07/10/23 11:38 Pulse Ox 96 07/10/23 11:38 FiO2 Intake & Output 07/09/23 07/10/23 07/10/23 18:59 06:59 18:59 Intake Total 1100 Output Total 10 Balance -10 1100 Intake: Intake, IV Titration 900 Amount Lactated Ringers 1,000 ml 900 @ 75 mls/hr IV .[id number] [facility] Rx#:[id number] Oral 200 Output: Emesis 10 Other: Voiding Method Toilet Toilet Toilet # Voids 1 2 # Bowel Movements 1 2 - Constitutional General appearance: Present: average body habitus, cooperative, no acute distress - EENT Eyes: Present: anicteric sclerae, EOMI ENT: Present: hearing grossly normal - Respiratory Details: Respirations even and nonlabored at rest - Cardiovascular Details: Skin warm and dry to the touch - Peripheral edema leg Peripheral Edema: bilateral: None - Gastrointestinal General gastrointestinal: Present: tenderness - Integumentary Integumentary: Present: pale - Neurologic Neurologic: Present: CNII-XII intact - Musculoskeletal Musculoskeletal: Present: generalized weakness, strength equal bilaterally - Psychiatric Psychiatric: Present: A&O x's 3, appropriate affect, intact judgment & insight - Labs CBC & Chem 7: 07/10/23 05:50 07/10/23 05:50 Labs: Abnormal Lab Results - Last 24 Hours (Table) 07/09/23 07/09/23 07/10/23 Range/Units 17:06 20:34 05:50 RBC 3.49 L (4.10-5.20) X 10*6/uL Hgb 9.8 L (12.0-15.0) d/dL Hct 30.5 L (37.2-46.3) % Carbon Dioxide (21.6-31.8) mmol/L Anion Gap (4.00-12.00) mmol/L BUN (9.0-27.0) mg/dL Creatinine (0.6-1.5) mg/dL Glucose (70-110) mg/dL POC Glucose (mg/dL) 194 H 185 H (70-110) mg/dL Calcium (8.7-10.3) mg/dL 07/10/23 07/10/23 07/10/23 Range/Units 05:50 07:32 12:21 RBC (4.10-5.20) X 10*6/uL Hgb (12.0-15.0) d/dL Hct (37.2-46.3) % Carbon Dioxide 20.2 L (21.6-31.8) mmol/L Anion Gap 12.80 H (4.00-12.00) mmol/L BUN 5.6 L (9.0-27.0) mg/dL Creatinine 0.4 L (0.6-1.5) mg/dL Glucose 213 H (70-110) mg/dL POC Glucose (mg/dL) 197 H 209 H (70-110) mg/dL Calcium 8.4 L (8.7-10.3) mg/dL Assessment and Plan (1) Intractable vomiting Current Visit: Yes Status: Acute Priority: High Code(s): R11.10 - VOMITING, UNSPECIFIED SNOMED Code(s): 155572310 (2) Mesenteric mass Current Visit: Yes Status: Acute Priority: High Code(s): K63.89 - OTHER SPECIFIED DISEASES OF INTESTINE SNOMED Code(s): 952957401 Plan: Mesenteric mass -10 x [address] scan -Surgery has performed laproscopic biopsy. Some ascites was also collected and sent for evaluation. Path pending -Did contact pathology department, anticipate within the next 24 hours results will be posted -LDH elevated. CEA, CA 125, CA-19-9 all within normal limits Intractable nausea and vomiting -Secondary to 10 x 8 cm mass with extrinsic compression on the duodenal area and posterior aspect of the stomach. -Anti-emetics ordered more frequently. Multiple anti-emetics prescribed. Pain meds ordered. Ativan for nausea and anxiety. Patient's symptoms are fairly well controlled on current regimen, she will still occasionally have spikes in abd discomfort and nausea -Discussed with Attending over the weekend. Concerns for patient not being able to tolerate any oral intake, uncontrolled symptoms. Once biopsy results are available Medical team and Oncologist will be able to decide what the next best step is-surgery, radiation, chemotherapy and where pt should be for best care. [place] reasonable to keep pt in hospital for now. -Will continue to follow up with patient daily and assess her -Family was updated and all their questions answered to their satisfaction.
[2023-07-10 18:07] LABS: Glucose,Whole Blood 185 mg/dL (70-110)
[2023-07-10] MEDS: LEVOTHYROXINE 75 MCG TAB PO SCH (19:53)
[2023-07-10] MEDS: ATORVASTATIN 10 MG TAB PO SCH (19:53)
[2023-07-10 20:13] LABS: Glucose,Whole Blood 191 mg/dL (70-110)
[2023-07-10] MEDS: INSULIN DETEMIR (LEVEMIR) 100 UNIT/ML SYR SQ SCH (21:03)
--- NOTE | 2023-07-10 21:32 | PN ---
PROGRESS NOTE DATE OF SERVICE: 07/10/2023 SUBJECTIVE: This is a 62-year-old woman who was admitted, has abdominal masses, is awaiting mesenteric biopsy. No chest pain. No palpitations. No fever. OBJECTIVE: VITAL SIGNS: Pulse is 65, blood pressure 130/37. RESPIRATIONS: Clear to auscultation. CARDIOVASCULAR: S1, S2. ABDOMEN: Soft, mild discomfort. LABORATORY DATA: Reviewed. ASSESSMENT: 1. Abdominal masses, possible mesenteric mass, rule out malignancy. 2. Intractable nausea and vomiting. 3. Diabetes mellitus, type 2. 4. Hypothyroidism. 5. Hyperlipidemia. RECOMMENDATIONS: Recommended to continue current management, continue symptomatic treatment. otherwise await biopsy. Prognosis guarded. Further recommendations to follow. MMODL / IJN: [id number] /
[2023-07-11] MEDS: ONDANSETRON 4 MG/2 ML VIAL IVP PRN (01:25)
[2023-07-11 07:28] LABS: Glucose,Whole Blood 204 mg/dL (70-110)
[2023-07-11] MEDS: PANTOPRAZOLE 40 MG/10 ML VIAL IVP SCH ×2 (09:02→22:09)
[2023-07-11] MEDS: HYDROcodone/APAP 15 ML SOLUTION PO PRN ×3 (09:02→20:02)
[2023-07-11] MEDS: INSULIN ASPART (NovoLOG) 100 UNIT/ML VIAL SQ SCH ×4 (09:04→22:09)
[2023-07-11] MEDS: SENNOSIDES-DOCUSATE SODIUM 1 EACH TAB PO SCH ×2 (09:39→20:06)
[2023-07-11] MEDS ORDERED: RX INFO: IV CONTRAST WAS GIVEN 1 EACH MISC MISCELLANE PRN (10:26)
[2023-07-11 10:49] LABS: Basophils # (A) 0.03 X 10*3/uL (0.00-0.10); Basophils % (A) 0.5 %; Eosinophils # (A) 0.17 X 10*3/uL (0.04-0.35); Eosinophils % (A) 2.6 %; HGB 9.6 d/dL (12.0-15.0); Lymphocytes % (A) 20.2 %; MCH 27.9 pg (27.0-32.0); MCV 87.2 FL (80.0-97.0); Mean Platelet Volume 10.5 FL (9.5-12.2); Monocytes # (A) 0.53 X 10*3/uL (0.20-1.00); Monocytes % (A) 8.2 %; NRBC Per 100 WBC 0 X 10*3/uL (0.00-0.01); Neutrophils # (A) 4.37 X 10*3/uL (1.80-7.70); Neutrophils % (A) 67.9 %; Platelet Count 397 X 10*3/uL (140-440); RBC 3.44 X 10*6/uL (4.10-5.20); RDW 12.8 % (11.5-14.5); WBC 6.44 X 10*3/uL (4.50-10.00)
[2023-07-11 11:07] LABS: ALT 6 U/L (8-44); AST 10 U/L (13-35); Albumin 2.8 d/dL (3.8-4.9); Albumin/Globulin Ratio 1.27 Ratio (1.60-3.17); Alkaline Phosphatase 117 U/L (41-126); Blood Urea Nitrogen 4.2 mg/dL (9.0-27.0); Calcium 8.5 mg/dL (8.7-10.3); Carbon Dioxide 22.9 mmol/L (21.6-31.8); Chloride 100 mmol/L (96-109); Globulin 2.2 d/dL (1.6-3.3); Glucose 204 mg/dL (70-110); Potassium 3.9 mmol/L (3.5-5.5); Sodium 137 mmol/L (135-145); Total Bilirubin 0.2 mg/dL (0.3-1.2)
[2023-07-11 12:10] LABS: Glucose,Whole Blood 194 mg/dL (70-110)
[2023-07-11] MEDS: LORazepam 2 MG/ML INJ IV PRN ×2 (13:26→20:05)
--- NOTE | 2023-07-11 14:04 | CT ---
EXAMINATION TYPE: CT chest w con CT DLP: 352.70 mGycm, Automated exposure control for dose reduction was used. DATE OF EXAM: 07/11/2023 1:06 PM COMPARISON: Chest radiograph from same day. Multiple CTs of the chest with most recent on . CLINICAL INDICATION:Female, 62 years old with history of DLBCL staging; [facility], DLBCL staging TECHNIQUE: Multiple axial images were obtained through the chest. Sagittal and coronal reformats were created for review. Contrast used:100 mL of Isovue 300 with IV Contrast (None if empty) Oral contrast used: (None if empty) FINDINGS: LUNGS/ PLEURA: No focal consolidation, pneumothorax. Trace bilateral pleural effusions. AIRWAY: Patent and unremarkable. HEART: Size within normal limits. MEDIASTINUM: No gross evidence of adenopathy. VASCULATURE: No aortic aneurysm. MUSCULOSKELETAL: No acute osseous abnormalities SOFT TISSUES/LYMPH NODES: There is a partially visualized soft tissue mass within the neck measuring 3.6 x 4.2 cm. On LOWER NECK: No significant findings. UPPER ABDOMEN: Upper abdominal lymph nodes near the Pancreatic head remain. The largest measuring up to 19 mm. Gastric diverticulum noted near the left adrenal gland. Small amount of ascites in the abdo men. Which is new. IMPRESSION: 1. There is left lower neck mass which is partially visualized on the CT. Finding concerning for add itional site of malignancy. No evidence for suspicious pulmonary nodule or lymphadenopathy within the mediastinum. Upper abdominal lymph nodes remain present. 2. New trace abdominal ascites and bilateral pleural effusions..
--- NOTE | 2023-07-11 14:13 | P.PN ---
Subjective Progress Note Date: 07/11/23 CHIEF COMPLAINT: Mesenteric mass HISTORY OF PRESENT ILLNESS: Patient is postop day #6 status post diagnostic laparoscopy, biopsy of retroperitoneal mass and fluid collection for cytology. Patient continues to complain of epigastric discomfort and nausea. She does report that it is controlled. She was able to eat a small amount of her food. Pathology and cytology results still pending. She had a computed tomography scan of the chest today. Report notes left lower neck mass partially visualized. Findings concerning for additional site of malignancy. PHYSICAL EXAM: VITAL SIGNS: Reviewed. GENERAL: Well-developed in no acute distress. ABDOMEN: Soft. Nondistended. Mild epigastric discomfort with palpation. Incisions clean dry and intact NEUROLOGIC: Alert and oriented. Cranial nerves II through XII grossly intact. ASSESSMENT: 1. Retroperitoneal mass status post biopsy 2. Epigastric abdominal pain with nausea and vomiting 3. Conglomerate mass within the mesentery with areas of suspected necrosis noted on CT 4. Status post EGD revealing antral gastritis and diaphragmatic hernia PLAN: -Continue pain management -Continue Ativan as needed -Continue regular diet -Continue antiemetics -Awaiting Pathology and cytology results Physician Cooler Service Supervisor note has been reviewed by physician. Signing provider agrees with the documented findings, assessment, and plan of care. Objective - Vital Signs Vital signs: Vital Signs Temp 98.2 F 07/11/23 12:59 Pulse 69 07/11/23 12:59 Resp 16 07/11/23 12:59 BP 126/75 07/11/23 12:59 Pulse Ox 96 07/11/23 01:48 FiO2 Intake & Output 07/10/23 07/11/23 07/11/23 18:59 06:59 18:59 Intake Total 900 1400 Balance 900 1400 Weight 69.853 kg Intake: Intake, IV Titration 900 900 Amount Lactated Ringers 1,000 ml 900 900 @ 75 mls/hr IV .[id number] [facility] Rx#:[id number] Oral 500 Other: Voiding Method Toilet Toilet # Voids 3 - Labs CBC & Chem 7: 07/11/23 05:59 07/11/23 05:59 Labs: Abnormal Lab Results - Last 24 Hours (Table) 07/10/23 07/10/23 07/11/23 Range/Units 17:53 20:11 05:59 RBC 3.44 L (4.10-5.20) X 10*6/uL Hgb 9.6 L (12.0-15.0) d/dL Hct 30.0 L (37.2-46.3) % Anion Gap (4.00-12.00) mmol/L BUN (9.0-27.0) mg/dL Creatinine (0.6-1.5) mg/dL BUN/Creatinine Ratio (12.00-20.00) Ratio Glucose (70-110) mg/dL POC Glucose (mg/dL) 185 H 191 H (70-110) mg/dL Calcium (8.7-10.3) mg/dL Total Bilirubin (0.3-1.2) mg/dL AST (13-35) U/L ALT (8-44) U/L Total Protein (6.2-8.2) d/dL Albumin (3.8-4.9) d/dL Albumin/Globulin Ratio (1.60-3.17) Ratio 07/11/23 07/11/23 07/11/23 Range/Units 05:59 07:22 12:08 RBC (4.10-5.20) X 10*6/uL Hgb (12.0-15.0) d/dL Hct (37.2-46.3) % Anion Gap 14.10 H (4.00-12.00) mmol/L BUN 4.2 L (9.0-27.0) mg/dL Creatinine 0.4 L (0.6-1.5) mg/dL BUN/Creatinine Ratio 10.50 L (12.00-20.00) Ratio Glucose 204 H (70-110) mg/dL POC Glucose (mg/dL) 204 H 194 H (70-110) mg/dL Calcium 8.5 L (8.7-10.3) mg/dL Total Bilirubin 0.2 L (0.3-1.2) mg/dL AST 10 L (13-35) U/L ALT 6 L (8-44) U/L Total Protein 5.0 L (6.2-8.2) d/dL Albumin 2.8 L (3.8-4.9) d/dL Albumin/Globulin Ratio 1.27 L (1.60-3.17) Ratio
--- NOTE | 2023-07-11 16:16 | P.PN ---
Subjective Progress Note Date: 07/11/23 Principal diagnosis: Abd pain, mesenteric mass, intractable N,V, In f/u today pt symptoms are stable, she has relief in symptoms with the combination of medications ordered currently. She vomited before she ate breakfast this morning, after getting out of the shower. She did keep down some eggs and some fluids. With oral intake though she does experience burning sensation, usually followed by some dry heaves. Objective - Vital Signs Vital signs: Vital Signs Temp 98.2 F 07/11/23 12:59 Pulse 69 07/11/23 12:59 Resp 16 07/11/23 12:59 BP 126/75 07/11/23 12:59 Pulse Ox 96 07/11/23 01:48 FiO2 Intake & Output 07/10/23 07/11/23 07/11/23 18:59 06:59 18:59 Intake Total 900 1400 Balance 900 1400 Weight 69.853 kg Intake: Intake, IV Titration 900 900 Amount Lactated Ringers 1,000 ml 900 900 @ 75 mls/hr IV .[id number] [facility] Rx#:[id number] Oral 500 Other: Voiding Method Toilet Toilet # Voids 3 - Constitutional General appearance: Present: average body habitus, cooperative, no acute distress - EENT Eyes: Present: anicteric sclerae, EOMI ENT: Present: hearing grossly normal - Respiratory Details: Respirations even and unlabored at rest - Cardiovascular Details: Skin warm and dry to the touch - Peripheral edema leg Peripheral Edema: bilateral: None - Gastrointestinal General gastrointestinal: Present: tenderness - Integumentary Integumentary: Present: normal - Neurologic Neurologic: Present: CNII-XII intact - Musculoskeletal Musculoskeletal: Present: generalized weakness, strength equal bilaterally - Psychiatric Psychiatric: Present: A&O x's 3, appropriate affect, intact judgment & insight - Labs CBC & Chem 7: 07/11/23 05:59 07/11/23 05:59 Labs: Abnormal Lab Results - Last 24 Hours (Table) 07/10/23 07/10/23 07/11/23 Range/Units 17:53 20:11 05:59 RBC 3.44 L (4.10-5.20) X 10*6/uL Hgb 9.6 L (12.0-15.0) d/dL Hct 30.0 L (37.2-46.3) % Anion Gap (4.00-12.00) mmol/L BUN (9.0-27.0) mg/dL Creatinine (0.6-1.5) mg/dL BUN/Creatinine Ratio (12.00-20.00) Ratio Glucose (70-110) mg/dL POC Glucose (mg/dL) 185 H 191 H (70-110) mg/dL Calcium (8.7-10.3) mg/dL Total Bilirubin (0.3-1.2) mg/dL AST (13-35) U/L ALT (8-44) U/L Total Protein (6.2-8.2) d/dL Albumin (3.8-4.9) d/dL Albumin/Globulin Ratio (1.60-3.17) Ratio 07/11/23 07/11/23 07/11/23 Range/Units 05:59 07:22 12:08 RBC (4.10-5.20) X 10*6/uL Hgb (12.0-15.0) d/dL Hct (37.2-46.3) % Anion Gap 14.10 H (4.00-12.00) mmol/L BUN 4.2 L (9.0-27.0) mg/dL Creatinine 0.4 L (0.6-1.5) mg/dL BUN/Creatinine Ratio 10.50 L (12.00-20.00) Ratio Glucose 204 H (70-110) mg/dL POC Glucose (mg/dL) 204 H 194 H (70-110) mg/dL Calcium 8.5 L (8.7-10.3) mg/dL Total Bilirubin 0.2 L (0.3-1.2) mg/dL AST 10 L (13-35) U/L ALT 6 L (8-44) U/L Total Protein 5.0 L (6.2-8.2) d/dL Albumin 2.8 L (3.8-4.9) d/dL Albumin/Globulin Ratio 1.27 L (1.60-3.17) Ratio Assessment and Plan (1) Intractable vomiting Current Visit: Yes Status: Acute Priority: High Code(s): R11.10 - VOMITING, UNSPECIFIED SNOMED Code(s): 404996396 (2) Mesenteric mass Current Visit: Yes Status: Acute Priority: High Code(s): K63.89 - OTHER SPECIFIED DISEASES OF INTESTINE SNOMED Code(s): 235185402 Plan: Mesenteric mass -10 x [address] scan -Surgery has performed laproscopic biopsy. Some ascites was also collected and sent for evaluation. -LDH elevated. CEA, CA 125, CA-19-9 all within normal limits -Spoke with pathologist this morning. Preliminary results were reviewed over the phone. 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 There were no malignant cells found in the ascitic fluid Intractable nausea and vomiting -Secondary to 10 x 8 cm mass with extrinsic compression on the duodenal area and posterior aspect of the stomach. -Anti-emetics ordered more frequently. Multiple anti-emetics prescribed. Pain meds ordered. Ativan for nausea and anxiety. Patient's symptoms are fairly well controlled on current regimen, she will still occasionally have spikes in abd discomfort and nausea The preliminary diagnosis was reviewed with the patient, , and daughter on the phone. Lymphoma is not an operable condition so, transferring the patient for surgery is not a treatment option. Lymphomas are treated with chemotherapy and sometimes chemotherapy and radiation-depending on the extent of disease. Treatment options/NCCN guidelines briefly reviewed. Will bring drug monographs for pt tomorrow. PET scan is the optimal way to stage lymphoma but, PET scan cannot be done while inpatient. Patient is terribly symptomatic which makes it challenging to get her discharged, get PET scan and then get her to treatment. CT chest ordered (CT AP already done). While not optimal, it is reasonable and can be used for comparison with future scans. It was discussed that lymphoma is a treatable malignancy, and does have the potential to have long-term remission, even possible for cure. Spend >75min counseling and coordinating care Patient's daughter wants the patient transferred. I asked if there were any questions she had or anything I could clarify but she said no. So, I am not exactly sure what she is wanting transfer for. Unfortunately it is likely going to be very challenging to have patient transferred as there is nothing another facility is going to do any different than what we are doing now. Transfer is not done for second opinions. Transfer also is not done for PET scans. Pt and are going to talk to daughter and ultimately decide what they would like to do. Will try to help pt get whatever it is she wants. attests: I seen and examined patient, performed H&P, developed impression and plan of care. Discussed with dictator. Agree with documentation, dictated as a scribe.
[2023-07-11 17:16] LABS: Glucose,Whole Blood 239 mg/dL (70-110)
[2023-07-11] MEDS: KETOROLAC 15 MG/ML 1 ML VIAL IVP PRN (17:38)
[2023-07-11] MEDS: LACTATED RINGERS 1,000 ML IV SCH ×2 (17:39)
[2023-07-11] MEDS: ATORVASTATIN 10 MG TAB PO SCH (20:05)
[2023-07-11] MEDS: LEVOTHYROXINE 75 MCG TAB PO SCH (20:06)
[2023-07-11 20:11] LABS: Glucose,Whole Blood 216 mg/dL (70-110)
[2023-07-11] MEDS ORDERED: NON FORMULARY DRUG (Omeprazole 40 MG Capsule.Dr) PO SCH (21:00)
[2023-07-11] MEDS: INSULIN DETEMIR (LEVEMIR) 100 UNIT/ML SYR SQ SCH (22:10)
--- NOTE | 2023-07-12 00:23 | PN ---
PROGRESS NOTE DATE OF SERVICE: 07/11/2023 SUBJECTIVE: This is a 62-year-old woman who was admitted with abdominal mass and possible mesenteric mass, is awaiting for biopsy report. No chest pain, no palpitations, no fever. OBJECTIVE: VITAL SIGNS: Pulse is 68, blood pressure 134/75, and respirations 17. CHEST: Clear to auscultation. CARDIOVASCULAR: S1, S2. ABDOMEN: Mild distention, mild discomfort. LABORATORY DATA: Reviewed. ASSESSMENT: 1. Abdominal masses, possible mesenteric mass, rule out malignancy. 2. Intractable nausea, vomiting. 3. Diabetes mellitus, type 2. 4. Hypothyroidism. 5. Hyperlipidemia. 6. Multiple complex medical issues. RECOMMENDATIONS: Recommended to continue current management, continue symptomatic treatment, repeat labs. Await biopsy report. Guarded prognosis. Further recommendations to follow. MMODL / IJN: [id number] /
[2023-07-12] MEDS: HYDROmorphone 1 MG/ML 1 ML SYRINGE IVP PRN ×3 (00:50→17:26)
[2023-07-12] MEDS: ONDANSETRON 4 MG/2 ML VIAL IVP PRN ×3 (00:50→17:27)
[2023-07-12] MEDS: LACTATED RINGERS 1,000 ML IV SCH ×3 (06:32→18:49)
[2023-07-12 08:11] LABS: Glucose,Whole Blood 226 mg/dL (70-110)
[2023-07-12] MEDS: INSULIN ASPART (NovoLOG) 100 UNIT/ML VIAL SQ SCH ×4 (08:44→20:47)
[2023-07-12] MEDS: PANTOPRAZOLE 40 MG/10 ML VIAL IVP SCH ×2 (08:45→20:46)
[2023-07-12] MEDS: SENNOSIDES-DOCUSATE SODIUM 1 EACH TAB PO SCH ×2 (08:46→20:37)
[2023-07-12] MEDS: HYDROcodone/APAP 15 ML SOLUTION PO PRN ×3 (08:55→20:47)
[2023-07-12 09:53] LABS: ALT 7 U/L (8-44); AST 8 U/L (13-35); Alkaline Phosphatase 111 U/L (41-126); BUN/Creat Ratio <8.75 Ratio (12.00-20.00); Blood Urea Nitrogen <3.5 mg/dL (9.0-27.0); Calcium 8.5 mg/dL (8.7-10.3); Carbon Dioxide 23.5 mmol/L (21.6-31.8); Chloride 101 mmol/L (96-109); Globulin 2.3 d/dL (1.6-3.3); Glucose 211 mg/dL (70-110); Potassium 3.4 mmol/L (3.5-5.5); Sodium 140 mmol/L (135-145); Total Bilirubin <0.2 mg/dL (0.3-1.2); Total Protein 5.3 d/dL (6.2-8.2)
--- NOTE | 2023-07-12 10:23 | CA ---
Transthoracic Echo Report Name: Sheryl Laguna Age: 62 Gender: F : 1960 Exam Date: 07/11/2023 12:14 Exam Location: [place] [facility] Ht (in): 66 Wt (lb): 154 Ordering Physician: Violetta Gardner Attending/Referring Phys: Bulk Loader Caro Barrett [facility] Procedure CPT: Indications: baseline LVEF, cardiotoxic chemo Cardiac Hx: Technical Quality: Fair Contrast 1: Total Dose (mL): Contrast 2: Total Dose (mL): MEASUREMENTS (Male / Female) Normal Values 2D ECHO LV Diastolic Diameter PLAX 4.1 cm 4.2 - 5.9 / 3.9 - 5.3 cm LV Systolic Diameter PLAX 2.8 cm IVS Diastolic Thickness 0.9 cm 0.6 - 1.0 / 0.6 - 0.9 cm LVPW Diastolic Thickness 0.9 cm 0.6 - 1.0 / 0.6 - 0.9 cm LV Relative Wall Thickness 0.4 LVOT Diameter 2.0 cm Ascending Aorta Diameter 3.1 cm M-MODE Aortic Root Diameter MM 2.5 cm LA Systolic Diameter MM 3.9 cm LA Ao Ratio MM 1.6 AV Cusp Separation MM 1.7 cm DOPPLER AV Peak Velocity 117.3 cm/s AV Peak Gradient 5.5 mmHg AV Mean Velocity 86.6 cm/s AV Mean Gradient 3.3 mmHg AV Velocity Time Integral 28.0 cm LVOT Peak Velocity 101.3 cm/s LVOT Peak Gradient 4.1 mmHg LVOT Velocity Time Integral 24.2 cm LVOT Stroke Volume 79.7 cm??? LVOT Stroke Volume Index 44.5 ml/m??? LVOT Cardiac Index 2986.9 cm???/min???m??? AV Area Cont Eq vti 2.8 cm??? AV Area Cont Eq pk 2.8 cm??? Mitral E Point Velocity 86.9 cm/s Mitral A Point Velocity 65.9 cm/s Mitral E to A Ratio 1.3 MV Deceleration Time 194.0 ms LV E' Lateral Velocity 9.0 cm/s Mitral E to LV E' Lateral Ratio 9.7 LV E' Septal Velocity 9.3 cm/s Mitral E to LV E' Septal Ratio 9.4 TR Peak Velocity 234.9 cm/s TR Peak Gradient 22.1 mmHg Right Atrial Pressure 15.0 mmHg Pulmonary Artery Systolic Pressu 37.1 mmHg Right Ventricular Systolic Press 37.1 mmHg FINDINGS Left Ventricle Left ventricular wall thickness normal. Left ventricular cavity size normal. Normal left ventricular systolic function with no obvious regional wall motion abnormalities. Left ventricular ejection fraction is estimated at 60-65%. Right Ventricle Normal right ventricular size. Mild pulmonary hypertension. Right Atrium Normal right atrial size. Left Atrium Normal left atrial size. Mitral Valve Structurally normal mitral valve. Mild mitral regurgitation. Aortic Valve Trileaflet aortic valve. No aortic valve stenosis or regurgitation. Tricuspid Valve Structurally normal tricuspid valve. Trace tricuspid regurgitation. Pulmonic Valve Structurally normal pulmonic valve. No pulmonic regurgitation. Pericardium No pericardial effusion. Aorta Normal size aortic root and proximal ascending aorta. CONCLUSIONS Left ventricular ejection fraction is estimated at 60-65%. No obvious regional wall motion abnormalities. Global longitudinal strain estimated at -20.8%, this is normal Normal chamber size, No significant valvular dysfunction No pericardial effusion Previewed by: Dr Torrey Wilson (Electronically Signed) Final Date: 12 July 2023 10:22
[2023-07-12 10:28] LABS: Basophils # (A) 0.06 X 10*3/uL (0.00-0.10); Basophils % (A) 0.9 %; Eosinophils # (A) 0.26 X 10*3/uL (0.04-0.35); HCT 30.1 % (37.2-46.3); HGB 9.9 d/dL (12.0-15.0); Lymphocytes # (A) 0.99 X 10*3/uL (0.90-5.00); Lymphocytes % (A) 15.2 %; MCH 28.5 pg (27.0-32.0); MCHC 32.9 d/dL (32.0-37.0); MCV 86.7 FL (80.0-97.0); Mean Platelet Volume 10.3 FL (9.5-12.2); Monocytes # (A) 0.62 X 10*3/uL (0.20-1.00); Monocytes % (A) 9.5 %; NRBC Per 100 WBC 0 X 10*3/uL (0.00-0.01); Neutrophils % (A) 69.3 %; Platelet Count 432 X 10*3/uL (140-440); RBC 3.47 X 10*6/uL (4.10-5.20); RDW 12.8 % (11.5-14.5)
[2023-07-12] MEDS ORDERED: POTASSIUM CHLORIDE ER 20 MEQ TAB.ER PO STA (11:08)
[2023-07-12 12:27] LABS: Glucose,Whole Blood 225 mg/dL (70-110)
--- NOTE | 2023-07-12 14:08 | P.PN ---
Subjective Progress Note Date: 07/12/23 Principal diagnosis: Abd pain, mesenteric mass, intractable N,V. Pathology positive for high-grade diffuse large B-cell lymphoma In f/u today pt symptoms are stable, she gets some relief from symptoms with the combination of medications ordered currently. Final pathology resulted today. Objective - Vital Signs Vital signs: Vital Signs Temp 97.6 F 07/12/23 13:19 Pulse 62 07/12/23 13:19 Resp 18 07/12/23 13:19 BP 148/95 07/12/23 13:19 Pulse Ox 94 L 07/12/23 13:19 FiO2 Intake & Output 07/11/23 07/12/23 07/12/23 18:59 06:59 18:59 Intake Total 0 Balance 0 Intake: Oral 0 Other: Voiding Method Toilet # Voids 2 2 - Constitutional General appearance: Present: average body habitus, cooperative, mild distress - EENT Eyes: Present: anicteric sclerae, EOMI ENT: Present: hearing grossly normal, normal oropharynx - Respiratory Details: Respirations even and unlabored at rest - Cardiovascular Details: Skin warm and dry to touch - Peripheral edema leg Peripheral Edema: bilateral: None - Gastrointestinal General gastrointestinal: Present: distended, tenderness - Integumentary Integumentary: Present: pale - Neurologic Neurologic: Present: CNII-XII intact (Grossly) - Musculoskeletal Musculoskeletal: Present: generalized weakness, strength equal bilaterally - Psychiatric Psychiatric: Present: A&O x's 3, appropriate affect, intact judgment & insight - Labs CBC & Chem 7: 07/12/23 05:59 07/12/23 05:59 Labs: Abnormal Lab Results - Last 24 Hours (Table) 07/11/23 07/11/23 07/12/23 Range/Units 17:14 20:08 05:59 RBC 3.47 L (4.10-5.20) X 10*6/uL Hgb 9.9 L (12.0-15.0) d/dL Hct 30.1 L (37.2-46.3) % Potassium (3.5-5.5) mmol/L Anion Gap (4.00-12.00) mmol/L BUN (9.0-27.0) mg/dL Creatinine (0.6-1.5) mg/dL BUN/Creatinine Ratio (12.00-20.00) Ratio Glucose (70-110) mg/dL POC Glucose (mg/dL) 239 H 216 H (70-110) mg/dL Calcium (8.7-10.3) mg/dL Total Bilirubin (0.3-1.2) mg/dL AST (13-35) U/L ALT (8-44) U/L Total Protein (6.2-8.2) d/dL Albumin (3.8-4.9) d/dL Albumin/Globulin Ratio (1.60-3.17) Ratio 07/12/23 07/12/23 07/12/23 Range/Units 05:59 08:06 12:22 RBC (4.10-5.20) X 10*6/uL Hgb (12.0-15.0) d/dL Hct (37.2-46.3) % Potassium 3.4 L (3.5-5.5) mmol/L Anion Gap 15.50 H (4.00-12.00) mmol/L BUN <3.5 L (9.0-27.0) mg/dL Creatinine 0.4 L (0.6-1.5) mg/dL BUN/Creatinine Ratio <8.75 L (12.00-20.00) Ratio Glucose 211 H (70-110) mg/dL POC Glucose (mg/dL) 226 H 225 H (70-110) mg/dL Calcium 8.5 L (8.7-10.3) mg/dL Total Bilirubin <0.2 L (0.3-1.2) mg/dL AST 8 L (13-35) U/L ALT 7 L (8-44) U/L Total Protein 5.3 L (6.2-8.2) d/dL Albumin 3.0 L (3.8-4.9) d/dL Albumin/Globulin Ratio 1.30 L (1.60-3.17) Ratio - Imaging and Cardiology CT scan - chest: report reviewed Assessment and Plan (1) Intractable vomiting Current Visit: Yes Status: Acute Priority: High Code(s): R11.10 - VOMITING, UNSPECIFIED SNOMED Code(s): 829130563 (2) Mesenteric mass Current Visit: Yes Status: Acute Priority: High Code(s): K63.89 - OTHER SPECIFIED DISEASES OF INTESTINE SNOMED Code(s): 911092214 Plan: Mesenteric mass-->High-grade diffuse large B-cell lymphoma -10 x [address] scan -Ascites negative for malignant cells. Biopsy of mesenteric mass positive for high-grade diffuse large B-cell lymphoma. -CT of the chest did show a 3.6 x 4.2 left lower neck mass -LDH elevated. Intractable nausea and vomiting -Secondary to 10 x 8 cm Lymphadenopathy with extrinsic compression on the duodenal area and posterior aspect of the stomach. -Anti-emetics ordered more frequently. Multiple anti-emetics prescribed. Pain meds ordered. Ativan for nausea and anxiety. Patient's symptoms are fairly well controlled on current regimen, she will still occasionally have spikes in abd discomfort and nausea Patient's daughter contacted [facility], they will do inpatient PET scans in certain situations. Discussed the case with Attending [employer]. Plan is for transfer to [facility]. Did discuss the case with Medical Oncology at [facility]. They are willing to accept the transfer. Treatment will be started inpatient there. Patient and are in agreement with plan. Greater than 60 minutes spent counseling and coordinating care
[2023-07-12] MEDS: LORazepam 2 MG/ML INJ IV PRN ×2 (14:28→20:48)
[2023-07-12 17:08] LABS: Glucose,Whole Blood 227 mg/dL (70-110)
--- NOTE | 2023-07-12 17:18 | P.PN ---
Subjective Progress Note Date: 07/12/23 62-year-old pleasant female came in with the severe epigastric abdominal pain feels nauseous but denied any vomiting patient had a CT of the abdomen which showed a mass around the epigastric area concern for lymphoma or pancreatic cancers GI malignancy. Oncology was consulted there is no computed tomography scan lab abnormalities. Patient is receiving Toradol and Dilaudid for pain. 07/04/2023 Patient is still having abdominal pain and nausea patient underwent upper GI endoscopy showed antral gastritis biopsies were up and patient will undergo percutaneous biopsy of the lesion that was found in the abdomen. Patient will be started on Bergoo, MiraLAX as needed for constipation Dilaudid will be continued. 07/05/2023 Patient is evaluated today resting in bed. Currently NPO and pending laproscopic biopsy of the mesenteric mass. Continues on antiemetics. Reports abdominal pain as generalized dull and achy states the pain medication has been helping. 07/06/2023 Patient is evaluated today sitting up on edge of bed patient is dry heaving and vomiting. Patient is on alternating course of zofran and phenergan. Patient is also on protonix BID, does report that she has heart burn sensation worse with the emesis. Tums and maalox are added if patient can tolerate. Patient underwent laproscopic biopsy of the mesenteric mass yesterday. Patient will remain hospitalized until the pathology is back. 07/07/2023 Patient is evaluated today resting in bed. Nausea and abdominal pain are improved compared to yesterday. She remains on alternating zofran and compazine. Tigan PRN on board. Toradol for pain management. She is tolerating some diet. gastric antrum biopsy shows chronic gastritis. Pending pathology from the retroperitoneal mass. 07/08/2023 She is resting in bed with family at the bedside. She has tolerated increased diet currently on a regular diet. She continues on alternating antibiotics and pain management. She did require increased pain medication overnight was having significant pain. She states that she is up in the hallway ambulating quite a bit yesterday. Pathology is currently pending for laparoscopic biopsy of the abdominal mass. Plan is for patient to remain inpatient the pathology is finalized a treatment plan can be made. 07/09/2023 Patient evaluated today resting in bed. She reports improved pain control states she was able to get some sleep last night. Patient also had a bowel movement. Patient continues on IV toradol, norco elixir and IV dilaudid for breakthrough pain. Remains on LR at 75 mls/hr. Pathology pending. 07/12/2023 Patient is seen in follow-up this morning with oncology following an continues to have pain and inability to tolerate oral intake. Patient is having frequent nausea with vomiting and attempting to eat and adjustments to medications including increasing antinausea medications along with IV Ativan for symptom relief although minimal. Patient continues with abdominal pain and feelings of fullness and pathology results high-grade b non-Hodgkin's lymphoma. Patient continues to be severely symptomatic and high risk for dehydration and was discussed further with oncology recommending tertiary transfer treatment to [facility] and has been accepted by Dr. Francisco as apparently they perform inpatient PET scans that needs to be done to move forward for treatment options. Family is agreeable with this and transfer has been initiated. Case management made aware in the event patient will require authorization from her insurance. Patient will continue on IV hydration along with pain management and antinausea medications. Encouraged oral intake and increased activity as tolerated. Patient is significantly weak. Review of systems. Constitutional: reports fatigue, denied any fever. Cardio vascular: denied any chest pain, palpitations Gastrointestinal reports nausea, abdominal pain, poor appetite. With continued vomiting Neurologic denied any new focal deficits. Reports extreme weakness All inpatient medications were reviewed and appropriate changes in these medications as dictated in the interval history and assessment and plan. Active Medications Hydrocodone Bitart/Acetaminophen (Hydrocodone/Apap 15 Ml Solution) 10 ml PO Q4HR PRN PRN Reason: Pain Last Admin: 07/12/23 13:50 Dose: 10 ml Al Hydroxide/Mg Hydroxide (Mag Hydrox/Al Hydrox/Simeth 30 Ml Cup) 30 ml PO Q4HR PRN PRN Reason: GI Upset Last Admin: 07/08/23 10:30 Dose: 30 ml Atorvastatin Calcium (Atorvastatin 10 Mg Tab) 10 mg PO HS FARIDEH Last Admin: 07/11/23 20:05 Dose: Not Given Calcium Carbonate/Glycine (Calcium Carbonate 500 Mg Chewable) 500 mg PO QID PRN PRN Reason: Heartburn Last Admin: 07/09/23 18:24 Dose: 500 mg Hydromorphone HCl (Hydromorphone 1 Mg/Ml 1 Ml Syringe) 1 mg IVP Q3HR PRN PRN Reason: Pain Last Admin: 07/12/23 08:43 Dose: 1 mg Lactated Ringer's (Lactated Ringers) 1,000 mls @ 75 mls/hr IV .[id number] [facility] Last Admin: 07/12/23 06:32 Dose: Not Given Lactated Ringer's (Lactated Ringers) 1,000 mls @ 20 mls/hr IV .Q24H [facility] Last Admin: 07/11/23 17:39 Dose: 20 mls/hr Insulin Aspart (Insulin Aspart (Novolog) 100 Unit/Ml Vial) 0 unit SQ [facility]; Protocol Last Admin: 07/12/23 12:36 Dose: 4 unit Insulin Detemir (Insulin Detemir (Levemir) 100 Unit/Ml Syr) 37 unit SQ [facility] Last Admin: 07/11/23 22:10 Dose: Not Given Ketorolac Tromethamine (Ketorolac 15 Mg/Ml 1 Ml Vial) 15 mg IVP Q6HR PRN PRN Reason: Pain Stop: 07/12/23 19:50 Last Admin: 07/11/23 17:38 Dose: 15 mg Levothyroxine Sodium (Levothyroxine 75 Mcg Tab) 75 mcg PO HS [facility] Last Admin: 07/11/23 20:06 Dose: Not Given Lidocaine HCl (Lidocaine 1% (10mg/Ml) For Iv Start) 0.1 ml INTRADERMA PER PROTOCOL PRN PRN Reason: IV Start Lorazepam (Lorazepam 2 Mg/Ml Inj) 1 mg IV Q6HR PRN PRN Reason: Anxiety Last Admin: 07/12/23 14:28 Dose: 1 mg Miscellaneous Information (Potassium Replacement Protocol 1 Each Misc) 1 each MISCELLANE DAILY PRN; Protocol PRN Reason: Per Protocol Miscellaneous Information (Rx Info: Iv Contrast Was Given 1 Each Misc) 1 each MISCELLANE DAILY PRN PRN Reason: Per Protocol Stop: 07/13/23 10:27 Naloxone HCl (Naloxone 0.4 Mg/Ml 1 Ml Vial) 0.2 mg IV Q2M PRN PRN Reason: Opioid Reversal Ondansetron HCl (Ondansetron 4 Mg/2 Ml Vial) 4 mg IVP Q4HR PRN PRN Reason: Nausea And Vomiting Last Admin: 07/12/23 08:42 Dose: 4 mg Pantoprazole Sodium (Pantoprazole 40 Mg/10 Ml Vial) 40 mg IVP BID [facility] Last Admin: 07/12/23 08:45 Dose: 40 mg Polyethylene Glycol (Polyethylene Glycol 3350 17 Gm Powd.Pack) 17 gm PO DAILY PRN PRN Reason: Constipation Prochlorperazine Edisylate (Prochlorperazine Inj 10 Mg/2 Ml Vial) 5 mg IVP Q4HR PRN PRN Reason: Nausea And Vomiting Last Admin: 07/08/23 11:48 Dose: 5 mg Senna/Docusate Sodium (Sennosides-Docusate Sodium 1 Each Tab) 2 each PO BID [facility] Last Admin: 07/12/23 08:46 Dose: Not Given Trimethobenzamide HCl (Trimethobenzamide 100 Mg/Ml 2 Ml Vial) 100 mg IM Q6HR PRN PRN Reason: Nausea PHYSICAL EXAMINATION: GENERAL: The patient is alert and oriented x3, appears lethargic and weak. Well developed, well nourished. Ill-appearing HEENT: Pupils are round and equally reacting to light. EOMI. No scleral icterus. No conjunctival pallor. Normocephalic, atraumatic. No pharyngeal erythema. No thyromegaly. CARDIOVASCULAR: S1 and S2 present. No murmurs, rubs, or gallops. PULMONARY: Chest is clear to auscultation, no wheezing or crackles. ABDOMEN: Soft, Mild tenderness on light palpation, nondistended, normoactive bowel sounds. No palpable organomegaly. MUSCULOSKELETAL: No joint swelling or deformity. EXTREMITIES: No cyanosis, clubbing, or pedal edema. NEUROLOGICAL: Gross neurological examination did not reveal any focal deficits. Diffusely weak SKIN: No rashes. Assessment: -Abdominal masses possible necrosis and severe abdominal pain: pathology pending with preliminary showing high-grade b non-Hodgkin's lymphoma -Intractible nausea and vomiting possibly secondary to above -Dehydration secondary to continued nausea and vomiting -Type 2 diabetes mellitus -Hypothyroidism -Hyperlipidemia DVT prophylaxis: Lovenox GI prophylaxis: Protonix Plan: Patient is continued on gentle IV hydration along with antinausea medications along with IV Ativan and pain medications with oncology following closely. Patient is not eating very well at all unable to tolerate any oral intake and appears dehydrated. Patient severely symptomatic we'll continue current regimen and adjust medications accordingly Repeat labs ordered for a.m. and recommend replace electrolytes per protocol Preliminary pathology showing high-grade b non-Hodgkin's lymphoma Patient needs an urgent PET scan which apparently is done at [facility] and has been accepted by Dr. Francisco oncology Transfer was initiated in case management made aware in the event patient will require insurance authorization Currently no beds available and transfer team will follow-up once there is a bed available. Will call the transfer team back tomorrow with updated status report Family is agreeable to this transfer Due to multiple complex medical issues, prognosis is guarded The impression and plan of care has been dictated by Betty Mathias, Nurse Practitioner as directed. Dr. Jose Miguel MD I have performed a history and examination and MDM of this patient, discussed the same with the dictator, and agree with the dictator's assessment and plan as written ,documented as a scribe. Based on total visit time, I have performed more than 50% of the visit. Objective - Vital Signs Vital signs: Vital Signs Temp 97.6 F 07/12/23 14:03 Pulse 62 07/12/23 14:03 Resp 18 07/12/23 14:03 BP 148/95 07/12/23 14:03 Pulse Ox 94 L 07/12/23 14:03 FiO2 Intake & Output 07/11/23 07/12/23 07/12/23 18:59 06:59 18:59 Intake Total 0 Balance 0 Intake: Oral 0 Other: Voiding Method Toilet # Voids 2 2 - Labs CBC & Chem 7: 07/12/23 05:59 07/12/23 05:59 Labs: Abnormal Lab Results - Last 24 Hours (Table) 07/11/23 07/11/23 07/12/23 Range/Units 17:14 20:08 05:59 RBC 3.47 L (4.10-5.20) X 10*6/uL Hgb 9.9 L (12.0-15.0) d/dL Hct 30.1 L (37.2-46.3) % Potassium (3.5-5.5) mmol/L Anion Gap (4.00-12.00) mmol/L BUN (9.0-27.0) mg/dL Creatinine (0.6-1.5) mg/dL BUN/Creatinine Ratio (12.00-20.00) Ratio Glucose (70-110) mg/dL POC Glucose (mg/dL) 239 H 216 H (70-110) mg/dL Calcium (8.7-10.3) mg/dL Total Bilirubin (0.3-1.2) mg/dL AST (13-35) U/L ALT (8-44) U/L Total Protein (6.2-8.2) d/dL Albumin (3.8-4.9) d/dL Albumin/Globulin Ratio (1.60-3.17) Ratio 07/12/23 07/12/23 07/12/23 Range/Units 05:59 08:06 12:22 RBC (4.10-5.20) X 10*6/uL Hgb (12.0-15.0) d/dL Hct (37.2-46.3) % Potassium 3.4 L (3.5-5.5) mmol/L Anion Gap 15.50 H (4.00-12.00) mmol/L BUN <3.5 L (9.0-27.0) mg/dL Creatinine 0.4 L (0.6-1.5) mg/dL BUN/Creatinine Ratio <8.75 L (12.00-20.00) Ratio Glucose 211 H (70-110) mg/dL POC Glucose (mg/dL) 226 H 225 H (70-110) mg/dL Calcium 8.5 L (8.7-10.3) mg/dL Total Bilirubin <0.2 L (0.3-1.2) mg/dL AST 8 L (13-35) U/L ALT 7 L (8-44) U/L Total Protein 5.3 L (6.2-8.2) d/dL Albumin 3.0 L (3.8-4.9) d/dL Albumin/Globulin Ratio 1.30 L (1.60-3.17) Ratio
[2023-07-12 20:12] LABS: Glucose,Whole Blood 207 mg/dL (70-110)
[2023-07-12] MEDS: INSULIN DETEMIR (LEVEMIR) 100 UNIT/ML SYR SQ SCH (20:36)
[2023-07-12] MEDS: ATORVASTATIN 10 MG TAB PO SCH (20:36)
[2023-07-12] MEDS: LEVOTHYROXINE 75 MCG TAB PO SCH (20:37)
[2023-07-13] MEDS: LORazepam 2 MG/ML INJ IV PRN ×3 (03:03→20:23)
[2023-07-13] MEDS: HYDROcodone/APAP 15 ML SOLUTION PO PRN ×4 (03:03→20:22)
[2023-07-13] MEDS: LACTATED RINGERS 1,000 ML IV SCH ×4 (06:35→20:21)
[2023-07-13 07:14] LABS: Glucose,Whole Blood 221 mg/dL (70-110)
[2023-07-13] MEDS: INSULIN ASPART (NovoLOG) 100 UNIT/ML VIAL SQ SCH ×4 (08:03→20:23)
[2023-07-13] MEDS: PANTOPRAZOLE 40 MG/10 ML VIAL IVP SCH ×2 (08:04→20:50)
[2023-07-13] MEDS: SENNOSIDES-DOCUSATE SODIUM 1 EACH TAB PO SCH ×2 (08:09→20:24)
[2023-07-13 10:48] LABS: Basophils # (A) 0.08 X 10*3/uL (0.00-0.10); Eosinophils # (A) 0.28 X 10*3/uL (0.04-0.35); Eosinophils % (A) 3.5 %; HGB 10.5 d/dL (12.0-15.0); Lymphocytes # (A) 1.27 X 10*3/uL (0.90-5.00); MCH 28.8 pg (27.0-32.0); MCHC 32.8 d/dL (32.0-37.0); MCV 87.7 FL (80.0-97.0); Mean Platelet Volume 10.6 FL (9.5-12.2); Monocytes # (A) 0.77 X 10*3/uL (0.20-1.00); Monocytes % (A) 9.7 %; NRBC Per 100 WBC 0 X 10*3/uL (0.00-0.01); Neutrophils # (A) 5.48 X 10*3/uL (1.80-7.70); Neutrophils % (A) 68.9 %; Platelet Count 477 X 10*3/uL (140-440); RBC 3.65 X 10*6/uL (4.10-5.20); RDW 12.7 % (11.5-14.5); WBC 7.95 X 10*3/uL (4.50-10.00)
[2023-07-13 11:00] LABS: Magnesium 1.7 mg/dL (1.5-2.4)
[2023-07-13 11:40] LABS: Blood Urea Nitrogen 3.8 mg/dL (9.0-27.0); Calcium 8.6 mg/dL (8.7-10.3); Carbon Dioxide 24.2 mmol/L (21.6-31.8); Chloride 96 mmol/L (96-109); Glucose 215 mg/dL (70-110); Potassium 3.9 mmol/L (3.5-5.5); Sodium 135 mmol/L (135-145)
[2023-07-13] MEDS ORDERED: Magnesium Replacement Protocol 1 EACH MISC MISCELLANE PRN (11:42)
[2023-07-13] MEDS ORDERED: MAGNESIUM SULFATE-D5W PMX 1 GM in DEXTROSE/WATER 1 100ML.BAG IVPB ONE (12:00)
[2023-07-13 12:17] LABS: Glucose,Whole Blood 174 mg/dL (70-110)
--- NOTE | 2023-07-13 12:48 | P.EN ---
Patient is requiring a transfer to [facility] as they have inpatient PET scans available and has been accepted by oncologist Dr. Francisco for further care and continuity of care. Patient's pathology was positive for high-grade diffuse large B-cell lymphoma requiring emergent PET scan to determine treatment plan moving forward. Patient continues with significant dehydration and abdominal pain with abdominal distention and inability to tolerate oral intake with significant weakness. Mass was 10 x [address] as well as a 3.6 x 4.2 cm left lower neck mass with significant lymphadenopathy. Patient is requiring this transfer as we do not perform PET scans inpatient and after discussion with oncology will be initiating treatment while inpatient at [facility].
[2023-07-13] MEDS: ONDANSETRON 4 MG/2 ML VIAL IVP PRN ×2 (13:02→20:47)
[2023-07-13] MEDS: HYDROmorphone 1 MG/ML 1 ML SYRINGE IVP PRN (16:00)
[2023-07-13 17:18] LABS: Glucose,Whole Blood 222 mg/dL (70-110)
[2023-07-13 20:16] LABS: Glucose,Whole Blood 238 mg/dL (70-110)
[2023-07-13] MEDS: LEVOTHYROXINE 75 MCG TAB PO SCH (20:23)
[2023-07-13] MEDS: ATORVASTATIN 10 MG TAB PO SCH (20:24)
[2023-07-13] MEDS: INSULIN DETEMIR (LEVEMIR) 100 UNIT/ML SYR SQ SCH (20:24)
--- NOTE | 2023-07-13 20:40 | P.PN ---
Subjective Progress Note Date: 07/13/23 Principal diagnosis: Abd pain, mesenteric mass, intractable N,V. Pathology positive for high-grade diffuse large B-cell lymphoma In f/u today pt symptoms are stable, she gets some relief from symptoms with the combination of medications ordered currently. Objective - Vital Signs Vital signs: Vital Signs Temp 99 F 07/13/23 12:15 Pulse 65 07/13/23 12:15 Resp 20 07/13/23 12:15 BP 134/72 07/13/23 12:15 Pulse Ox 92 L 07/13/23 12:15 FiO2 Intake & Output 07/12/23 07/13/23 07/13/23 18:59 06:59 18:59 Intake Total 0 590 Balance 0 590 Intake: Oral 0 590 Other: Voiding Method Toilet # Voids 2 3 - Constitutional Constitutional Comment(s): progressive weakness General appearance: Present: average body habitus, cooperative, no acute distress - EENT Eyes: Present: anicteric sclerae, EOMI ENT: Present: hearing grossly normal - Respiratory Details: resp even and unlabored - Cardiovascular Details: skin warm and dry to touch - Gastrointestinal General gastrointestinal: Present: tenderness - Integumentary Integumentary: Present: normal - Neurologic Neurologic: Present: CNII-XII intact - Musculoskeletal Musculoskeletal: Present: generalized weakness - Psychiatric Psychiatric: Present: A&O x's 3, appropriate affect, intact judgment & insight - Labs CBC & Chem 7: 07/13/23 06:03 07/13/23 06:03 Labs: Abnormal Lab Results - Last 24 Hours (Table) 07/12/23 07/12/23 07/13/23 Range/Units 17:07 20:09 06:03 RBC 3.65 L (4.10-5.20) X 10*6/uL Hgb 10.5 L (12.0-15.0) d/dL Hct 32.0 L (37.2-46.3) % Plt Count 477 H (140-440) X 10*3/uL Anion Gap (4.00-12.00) mmol/L BUN (9.0-27.0) mg/dL Creatinine (0.6-1.5) mg/dL BUN/Creatinine Ratio (12.00-20.00) Ratio Glucose (70-110) mg/dL POC Glucose (mg/dL) 227 H 207 H (70-110) mg/dL Calcium (8.7-10.3) mg/dL 07/13/23 07/13/23 07/13/23 Range/Units 06:03 07:12 12:15 RBC (4.10-5.20) X 10*6/uL Hgb (12.0-15.0) d/dL Hct (37.2-46.3) % Plt Count (140-440) X 10*3/uL Anion Gap 14.80 H (4.00-12.00) mmol/L BUN 3.8 L (9.0-27.0) mg/dL Creatinine 0.4 L (0.6-1.5) mg/dL BUN/Creatinine Ratio 9.50 L (12.00-20.00) Ratio Glucose 215 H (70-110) mg/dL POC Glucose (mg/dL) 221 H 174 H (70-110) mg/dL Calcium 8.6 L (8.7-10.3) mg/dL Assessment and Plan (1) Intractable vomiting Current Visit: Yes Status: Acute Priority: High Code(s): R11.10 - VOMITING, UNSPECIFIED SNOMED Code(s): 373112377 (2) Mesenteric mass Current Visit: Yes Status: Acute Priority: High Code(s): K63.89 - OTHER SPECIFIED DISEASES OF INTESTINE SNOMED Code(s): 453129338 Plan: Mesenteric mass-->High-grade diffuse large B-cell lymphoma -10 x [address] scan -Ascites negative for malignant cells. Biopsy of mesenteric mass positive for high-grade diffuse large B-cell lymphoma. -CT of the chest did show a 3.6 x 4.2 left lower neck mass -LDH elevated. Intractable nausea and vomiting -Secondary to 10 x 8 cm Lymphadenopathy with extrinsic compression on the duodenal area and posterior aspect of the stomach. -Patient's symptoms are fairly well controlled on current regimen, she will still occasionally have spikes in abd discomfort and nausea. Shared a copy of medications with Dr. Francisco so pt can be maintained on them once she is transferred Pending transfer
--- NOTE | 2023-07-13 21:10 | P.PN ---
Subjective Progress Note Date: 07/13/23 62-year-old pleasant female came in with the severe epigastric abdominal pain feels nauseous but denied any vomiting patient had a CT of the abdomen which showed a mass around the epigastric area concern for lymphoma or pancreatic cancers GI malignancy. Oncology was consulted there is no computed tomography scan lab abnormalities. Patient is receiving Toradol and Dilaudid for pain. 07/04/2023 Patient is still having abdominal pain and nausea patient underwent upper GI endoscopy showed antral gastritis biopsies were up and patient will undergo percutaneous biopsy of the lesion that was found in the abdomen. Patient will be started on [place], MiraLAX as needed for constipation Dilaudid will be continued. 07/05/2023 Patient is evaluated today resting in bed. Currently NPO and pending laproscopic biopsy of the mesenteric mass. Continues on antiemetics. Reports abdominal pain as generalized dull and achy states the pain medication has been helping. 07/06/2023 Patient is evaluated today sitting up on edge of bed patient is dry heaving and vomiting. Patient is on alternating course of zofran and phenergan. Patient is also on protonix BID, does report that she has heart burn sensation worse with the emesis. Tums and maalox are added if patient can tolerate. Patient underwent laproscopic biopsy of the mesenteric mass yesterday. Patient will remain hospitalized until the pathology is back. 07/07/2023 Patient is evaluated today resting in bed. Nausea and abdominal pain are improved compared to yesterday. She remains on alternating zofran and compazine. Tigan PRN on board. Toradol for pain management. She is tolerating some diet. gastric antrum biopsy shows chronic gastritis. Pending pathology from the retroperitoneal mass. 07/08/2023 She is resting in bed with family at the bedside. She has tolerated increased diet currently on a regular diet. She continues on alternating antibiotics and pain management. She did require increased pain medication overnight was having significant pain. She states that she is up in the hallway ambulating quite a bit yesterday. Pathology is currently pending for laparoscopic biopsy of the abdominal mass. Plan is for patient to remain inpatient the pathology is finalized a treatment plan can be made. 07/09/2023 Patient evaluated today resting in bed. She reports improved pain control states she was able to get some sleep last night. Patient also had a bowel movement. Patient continues on IV toradol, norco elixir and IV dilaudid for breakthrough pain. Remains on LR at 75 mls/hr. Pathology pending. 07/12/2023 Patient is seen in follow-up this morning with oncology following an continues to have pain and inability to tolerate oral intake. Patient is having frequent nausea with vomiting and attempting to eat and adjustments to medications including increasing antinausea medications along with IV Ativan for symptom relief although minimal. Patient continues with abdominal pain and feelings of fullness and pathology results high-grade b non-Hodgkin's lymphoma. Patient continues to be severely symptomatic and high risk for dehydration and was discussed further with oncology recommending tertiary transfer treatment to [facility] and has been accepted by Dr. Francisco as apparently they perform inpatient PET scans that needs to be done to move forward for treatment options. Family is agreeable with this and transfer has been initiated. Case management made aware in the event patient will require authorization from her insurance. Patient will continue on IV hydration along with pain management and antinausea medications. Encouraged oral intake and increased activity as tolerated. Patient is significantly weak. 07/13/2023 Patient is seen and evaluated this morning has been accepted for transfer at [facility] although currently no bed available and continuing to await for insurance authorization for transfer. Case management following working on this. Patient continues with inability to tolerate oral intake having some very mild relief in symptoms although continues to have nausea and significant weakness. Oncology following as well and has assisted with initiating the transfer and providing updates to the accepting physician. Patient needs emergent PET scan to evaluate for further staging and formulating a treatment plan to initiate therapy while inpatient. Recommend to replace electrodes per protocol and encourage small frequent meals and continue IV hydration. Will follow-up with daily labs and replace electrolytes per protocol. Continue supportive care. Review of systems. Constitutional: reports fatigue, denied any fever. Cardio vascular: denied any chest pain, palpitations Gastrointestinal reports nausea, abdominal pain, poor appetite. With continued intermittent vomiting Neurologic denied any new focal deficits. Reports extreme weakness All inpatient medications were reviewed and appropriate changes in these medications as dictated in the interval history and assessment and plan. Active Medications Hydrocodone Bitart/Acetaminophen (Hydrocodone/Apap 15 Ml Solution) 10 ml PO Q4HR PRN PRN Reason: Pain Last Admin: 07/13/23 20:22 Dose: 10 ml Al Hydroxide/Mg Hydroxide (Mag Hydrox/Al Hydrox/Simeth 30 Ml Cup) 30 ml PO Q4HR PRN PRN Reason: GI Upset Last Admin: 07/08/23 10:30 Dose: 30 ml Atorvastatin Calcium (Atorvastatin 10 Mg Tab) 10 mg PO HS [facility] Last Admin: 07/13/23 20:24 Dose: Not Given Calcium Carbonate/Glycine (Calcium Carbonate 500 Mg Chewable) 500 mg PO QID PRN PRN Reason: Heartburn Last Admin: 07/09/23 18:24 Dose: 500 mg Hydromorphone HCl (Hydromorphone 1 Mg/Ml 1 Ml Syringe) 1 mg IVP Q3HR PRN PRN Reason: Pain Last Admin: 07/13/23 16:00 Dose: 1 mg Lactated Ringer's (Lactated Ringers) 1,000 mls @ 75 mls/hr IV .[id number] [facility] Last Admin: 07/13/23 20:21 Dose: 75 mls/hr Lactated Ringer's (Lactated Ringers) 1,000 mls @ 20 mls/hr IV .Q24H [facility] Last Admin: 07/13/23 09:38 Dose: Not Given Insulin Aspart (Insulin Aspart (Novolog) 100 Unit/Ml Vial) 0 unit SQ [facility]; Protocol Last Admin: 07/13/23 20:23 Dose: 4 unit Insulin Detemir (Insulin Detemir (Levemir) 100 Unit/Ml Syr) 37 unit SQ [facility] Last Admin: 07/13/23 20:24 Dose: Not Given Levothyroxine Sodium (Levothyroxine 75 Mcg Tab) 75 mcg PO [facility] Last Admin: 07/13/23 20:23 Dose: Not Given Lidocaine HCl (Lidocaine 1% (10mg/Ml) For Iv Start) 0.1 ml INTRADERMA PER PROTOCOL PRN PRN Reason: IV Start Lorazepam (Lorazepam 2 Mg/Ml Inj) 1 mg IV Q6HR PRN PRN Reason: Anxiety Last Admin: 07/13/23 20:23 Dose: 1 mg Miscellaneous Information (Potassium Replacement Protocol 1 Each Misc) 1 each MISCELLANE DAILY PRN; Protocol PRN Reason: Per Protocol Miscellaneous Information (Magnesium Replacement Protocol 1 Each Misc) 1 each MISCELLANE DAILY PRN; Protocol PRN Reason: Per Protocol Naloxone HCl (Naloxone 0.4 Mg/Ml 1 Ml Vial) 0.2 mg IV Q2M PRN PRN Reason: Opioid Reversal Ondansetron HCl (Ondansetron 4 Mg/2 Ml Vial) 4 mg IVP Q4HR PRN PRN Reason: Nausea And Vomiting Last Admin: 07/13/23 20:47 Dose: 4 mg Pantoprazole Sodium (Pantoprazole 40 Mg/10 Ml Vial) 40 mg IVP BID [facility] Last Admin: 07/13/23 20:50 Dose: 40 mg Polyethylene Glycol (Polyethylene Glycol 3350 17 Gm Powd.Pack) 17 gm PO DAILY PRN PRN Reason: Constipation Prochlorperazine Edisylate (Prochlorperazine Inj 10 Mg/2 Ml Vial) 5 mg IVP Q4HR PRN PRN Reason: Nausea And Vomiting Last Admin: 07/08/23 11:48 Dose: 5 mg Senna/Docusate Sodium (Sennosides-Docusate Sodium 1 Each Tab) 2 each PO BID [facility] Last Admin: 07/13/23 20:24 Dose: Not Given Trimethobenzamide HCl (Trimethobenzamide 100 Mg/Ml 2 Ml Vial) 100 mg IM Q6HR PRN PRN Reason: Nausea PHYSICAL EXAMINATION: GENERAL: The patient is alert and oriented x3, appears lethargic and weak. Well developed, well nourished. Ill-appearing HEENT: Pupils are round and equally reacting to light. EOMI. No scleral icterus. No conjunctival pallor. Normocephalic, atraumatic. No pharyngeal erythema. No thyromegaly. CARDIOVASCULAR: S1 and S2 present. No murmurs, rubs, or gallops. PULMONARY: Chest is clear to auscultation, no wheezing or crackles. ABDOMEN: Soft, Mild tenderness on light palpation, nondistended, normoactive bowel sounds. No palpable organomegaly. MUSCULOSKELETAL: No joint swelling or deformity. EXTREMITIES: No cyanosis, clubbing, or pedal edema. NEUROLOGICAL: Gross neurological examination did not reveal any focal deficits. Diffusely weak SKIN: No rashes. Assessment: -Abdominal masses possible necrosis and severe abdominal pain: pathology pending with preliminary showing high-grade b non-Hodgkin's lymphoma -Intractible nausea and vomiting possibly secondary to above -Dehydration secondary to continued nausea and vomiting -Type 2 diabetes mellitus -Hypothyroidism -Hyperlipidemia DVT prophylaxis: Lovenox GI prophylaxis: Protonix Plan: Patient is continued on gentle IV hydration along with antinausea medications along with IV Ativan and pain medications with oncology following closely. Patient is not eating very well at all unable to tolerate any oral intake and appears dehydrated. Patient severely symptomatic we'll continue current regimen and adjust medications accordingly Repeat labs ordered for a.m. and recommend replace electrolytes per protocol Preliminary pathology showing high-grade b non-Hodgkin's lymphoma Patient needs an urgent PET scan which apparently is done at [facility] and has been accepted by Dr. Francisco oncology Transfer was initiated and case management following working on obtaining [facility] authorization which is still pending. After discussion with transfer team today still no beds available and family was updated. Due to multiple complex medical issues, prognosis is guarded The impression and plan of care has been dictated by Betty Mathias, Nurse Practitioner as directed. Dr. Jose Miguel MD I have performed a history and examination and MDM of this patient, discussed the same with the dictator, and agree with the dictator's assessment and plan as written ,documented as a scribe. Based on total visit time, I have performed more than 50% of the visit. Objective - Vital Signs Vital signs: Vital Signs Temp 98.6 F 07/13/23 07:10 Pulse 67 07/13/23 07:10 Resp 20 07/13/23 07:10 BP 156/72 07/13/23 07:10 Pulse Ox 95 07/13/23 02:00 FiO2 Intake & Output 07/12/23 07/13/23 07/13/23 18:59 06:59 18:59 Intake Total 0 590 Balance 0 590 Intake: Oral 0 590 Other: Voiding Method Toilet # Voids 2 3 - Labs CBC & Chem 7: 07/13/23 06:03 07/13/23 06:03 Labs: Abnormal Lab Results - Last 24 Hours (Table) 07/12/23 07/12/23 07/12/23 Range/Units 12:22 17:07 20:09 RBC (4.10-5.20) X 10*6/uL Hgb (12.0-15.0) d/dL Hct (37.2-46.3) % Plt Count (140-440) X 10*3/uL Anion Gap (4.00-12.00) mmol/L BUN (9.0-27.0) mg/dL Creatinine (0.6-1.5) mg/dL BUN/Creatinine Ratio (12.00-20.00) Ratio Glucose (70-110) mg/dL POC Glucose (mg/dL) 225 H 227 H 207 H (70-110) mg/dL Calcium (8.7-10.3) mg/dL 07/13/23 07/13/23 07/13/23 Range/Units 06:03 06:03 07:12 RBC 3.65 L (4.10-5.20) X 10*6/uL Hgb 10.5 L (12.0-15.0) d/dL Hct 32.0 L (37.2-46.3) % Plt Count 477 H (140-440) X 10*3/uL Anion Gap 14.80 H (4.00-12.00) mmol/L BUN 3.8 L (9.0-27.0) mg/dL Creatinine 0.4 L (0.6-1.5) mg/dL BUN/Creatinine Ratio 9.50 L (12.00-20.00) Ratio Glucose 215 H (70-110) mg/dL POC Glucose (mg/dL) 221 H (70-110) mg/dL Calcium 8.6 L (8.7-10.3) mg/dL
[2023-07-14] MEDS: HYDROcodone/APAP 15 ML SOLUTION PO PRN (02:49)
[2023-07-14] MEDS: LORazepam 2 MG/ML INJ IV PRN (02:55)
[2023-07-14 07:22] LABS: Glucose,Whole Blood 273 mg/dL (70-110)
[2023-07-14] MEDS: SENNOSIDES-DOCUSATE SODIUM 1 EACH TAB PO SCH (08:25)
[2023-07-14 08:44] VITALS: BP 121/65; PULSE 77; RESP 12; TEMP 100
[2023-07-14] MEDS: PANTOPRAZOLE 40 MG/10 ML VIAL IVP SCH (08:44)
[2023-07-14] MEDS: INSULIN ASPART (NovoLOG) 100 UNIT/ML VIAL SQ SCH (08:44)
[2023-07-14] MEDS: ONDANSETRON 4 MG/2 ML VIAL IVP PRN (09:04)
[2023-07-14] MEDS: HYDROmorphone 1 MG/ML 1 ML SYRINGE IVP PRN (09:04)
[2023-07-14 11:00] LABS: Basophils # (A) 0.05 X 10*3/uL (0.00-0.10); Basophils % (A) 0.5 %; Eosinophils # (A) 0.05 X 10*3/uL (0.04-0.35); Eosinophils % (A) 0.5 %; HCT 33.3 % (37.2-46.3); HGB 10.9 d/dL (12.0-15.0); Lymphocytes # (A) 1.15 X 10*3/uL (0.90-5.00); Lymphocytes % (A) 11.3 %; MCH 28.4 pg (27.0-32.0); MCHC 32.7 d/dL (32.0-37.0); MCV 86.7 FL (80.0-97.0); Mean Platelet Volume 10.2 FL (9.5-12.2); Monocytes % (A) 8.8 %; NRBC Per 100 WBC 0 X 10*3/uL (0.00-0.01); Neutrophils # (A) 8.03 X 10*3/uL (1.80-7.70); Neutrophils % (A) 78.5 %; Platelet Count 444 X 10*3/uL (140-440); RBC 3.84 X 10*6/uL (4.10-5.20); RDW 12.9 % (11.5-14.5); WBC 10.22 X 10*3/uL (4.50-10.00)
[2023-07-14 11:37] LABS: Magnesium 1.9 mg/dL (1.5-2.4)
[2023-07-14 12:00] LABS: ALT 6 U/L (8-44); AST 15 U/L (13-35); Albumin 3.1 d/dL (3.8-4.9); Albumin/Globulin Ratio 1.24 Ratio (1.60-3.17); Alkaline Phosphatase 125 U/L (41-126); Blood Urea Nitrogen 5.1 mg/dL (9.0-27.0); Calcium 8.5 mg/dL (8.7-10.3); Carbon Dioxide 31.9 mmol/L (21.6-31.8); Chloride 99 mmol/L (96-109); Globulin 2.5 d/dL (1.6-3.3); Glucose 256 mg/dL (70-110); Potassium 3.5 mmol/L (3.5-5.5); Sodium 137 mmol/L (135-145); Total Bilirubin 0.3 mg/dL (0.3-1.2); Total Protein 5.6 d/dL (6.2-8.2)
== END 2023-07-14 09:34 | disposition short-term general hospital (02) | DRG 841 ==
LOC: EC 15:25 → 5NMEDONC 21:20
PROVIDERS: ADMIT Internal Medicine; ATTEND Internal Medicine
PROC: 0DB78ZX Excision of Stomach, Pylorus, Via Natural or Artificial Opening Endoscopic, Diagnostic (ICD-10-PCS; 2023-07-04)
PROC: 0DBV4ZX Excision of Mesentery, Percutaneous Endoscopic Approach, Diagnostic (ICD-10-PCS; principal; 2023-07-05 11:00)
DX: C83.33 Diffuse large B-cell lymphoma, intra-abdominal lymph nodes (principal); R18.8 Other ascites; E03.9 Hypothyroidism, unspecified; E78.00 Pure hypercholesterolemia, unspecified; E86.0 Dehydration; I44.0 Atrioventricular block, first degree; K29.50 Unspecified chronic gastritis without bleeding; K44.9 Diaphragmatic hernia without obstruction or gangrene; K66.9 Disorder of peritoneum, unspecified; Z79.4 Long term (current) use of insulin; E11.65 Type 2 diabetes mellitus with hyperglycemia; Z79.890 Hormone replacement therapy; R22.1 Localized swelling, mass and lump, neck; K29.70 Gastritis, unspecified, without bleeding
CPT/HCPCS: 36415; 43239; 71045; 71260; 74177; 80048; 80053; 81001; 82150; 82378; 83615; 83690; 83735; 84100; 84550; 85025; 85027; 86301; 86304; 88108; 88305; 88307; 88341; 88342; 93005; 93306; 96361; 96374; 96375; 96376; 99285